=== PATIENT | male | born 1935 | race Caucasian/White ===

== ENCOUNTER → 2017-06-17 | Outpatient (CLI) | payer MEDICARE, OTHER ==
[~2017-06-17] MED LIST: ACET250; ACET325 PO; ALLO100; ALLO100 PO; AMIT25 PO; AMLO10 PO; AMOCLA875 PO; ASPI325; ASPI325EC; ASPI81EC PO; Aspirin EC81 MG PO; Azor 5-20 MG T1 EACH; BENAML20/5; BENAML20/5 PO; BUME1; BUME1 PO; BUME2 PO; BYETTA; CARV6.25 PO; CYCL10 PO; Cleocin HCl300 MG PO; Culturelle1 CAP PO; DICY20 PO; DOCU100 PO; DOXA4 PO; DOXY100 PO; ENOX120I SQ; ESOM20 PO; EXENATIDE; EZET10-20 PO; FOLI1 PO; GABA300 PO; GLIM2; GLIP5ER PO; HYDACE5 PO; HYDGUAL120 PO; IBUP800 PO; INJECTION; INS70/30I SC; INVOKANA; INVOKANA300 MG PO; LEVEMIR FL100 UNIT/1 SC; LIRA0.6P; LISI5 PO; LORA1 PO; LOSA25 PO; LOSA50; METF500; METF500 PO; METO25ER PO; Novolog Fl100 UNIT/1 SC; OMEP20ER PO; OXYACE5T PO; Omeprazole20 M1 PO; PANT40; PANT40 PO; POTCHL20ER PO; PRAVASTATIN SOD10 MG PO; PRED20; PRED20 PO; ROXICODONE5 MG PO; RXOXYACE PO; SYNTHROID25 MCG PO; TOUJEO SOL300 UNIT/1 SC; TRAM50 PO; VANCOCIN PO; VICTOZA; VICTOZA 3-0.6 MG/0.1 SC; WARF5 PO; XARELTO20 MG PO; Zyloprim100 MG PO; byetta
== END | disposition home or self-care (01) ==
LOC: OLS 14:38
PROVIDERS: Dermatology
DX: L98.9 Disorder of the skin and subcutaneous tissue, unspecified (principal)
CPT/HCPCS: 81050; 84120

== ENCOUNTER 2017-08-11 11:41 | Day surgery (SDC) | payer MEDICARE, OTHER ==
[~2017-08-11] VITALS: Ht 180.3 cm; Wt 157.1 kg
[~2017-08-11 11:41] MED LIST changes: -ACET325 PO; -AMIT25 PO; -CARV6.25 PO; -Culturelle1 CAP PO; -FOLI1 PO; -GABA300 PO; -LEVEMIR FL100 UNIT/1 SC; -Novolog Fl100 UNIT/1 SC; -PANT40 PO; -PRED20 PO; -ROXICODONE5 MG PO; -VANCOCIN PO
== END 2017-08-11 15:45 | disposition home or self-care (01) ==
LOC: ORSCSDS 11:41
PROVIDERS: Internal Medicine Gastroenterology
PROC: 0DBL8ZX Excision of Transverse Colon, Via Natural or Artificial Opening Endoscopic, Diagnostic (ICD-10-PCS; principal; 2017-08-11 13:00)
PROC: 0DBK8ZX Excision of Ascending Colon, Via Natural or Artificial Opening Endoscopic, Diagnostic (ICD-10-PCS; principal; 2017-08-11 13:00)
PROC: 0DBH8ZX Excision of Cecum, Via Natural or Artificial Opening Endoscopic, Diagnostic (ICD-10-PCS; principal; 2017-08-11 13:00)
PROC: 0DBM8ZX Excision of Descending Colon, Via Natural or Artificial Opening Endoscopic, Diagnostic (ICD-10-PCS; principal; 2017-08-11 13:00)
PROC: 0D758ZZ Dilation of Esophagus, Via Natural or Artificial Opening Endoscopic (ICD-10-PCS; principal; 2017-08-11 13:00)
DX: R13.10 Dysphagia, unspecified (principal); K22.2 Esophageal obstruction; K25.4 Chronic or unspecified gastric ulcer with hemorrhage; K92.1 Melena; D12.2 Benign neoplasm of ascending colon; D12.0 Benign neoplasm of cecum; D12.3 Benign neoplasm of transverse colon; D12.4 Benign neoplasm of descending colon; K57.30 Diverticulosis of large intestine without perforation or abscess without bleeding; K64.8 Other hemorrhoids; I10 Essential (primary) hypertension; I48.91 Unspecified atrial fibrillation; I48.92 Unspecified atrial flutter; Z79.01 Long term (current) use of anticoagulants; Z95.0 Presence of cardiac pacemaker; E03.9 Hypothyroidism, unspecified; E11.42 Type 2 diabetes mellitus with diabetic polyneuropathy; Z79.4 Long term (current) use of insulin; N18.3 Chronic kidney disease, stage 3 (moderate); G47.33 Obstructive sleep apnea (adult) (pediatric); Z79.82 Long term (current) use of aspirin; Z79.899 Other long term (current) drug therapy; E66.01 Morbid (severe) obesity due to excess calories; Z68.42 Body mass index [BMI] 45.0-49.9, adult
CPT/HCPCS: 82947; 88305; C1726

== ENCOUNTER 2017-10-07 15:17 | Inpatient (IN) | payer MEDICARE, OTHER ==
[~2017-10-07] VITALS: Ht 180.3 cm; Wt 161.6 kg
[2017-10-07 16:02] LABS: BASOPHILS ABSOLUTE AUTO 0.06 K/mm3 (0.00-0.23); BASOPHILS PERCENT AUTO 1 % (0-2); EOSINOPHILS ABSOLUTE AUTO 0.11 K/mm3 (0.00-0.68); EOSINOPHILS PERCENT AUTO 1 % (0-6); Hematocrit 29.6 % (37.0-53.0); Hemoglobin 9.3 g/dL (13.5-17.5); IMMATURE GRAN ABSOLUTE AUTO 0.09 K/mm3 (0.00-0.10); IMMATURE GRAN PERCENT AUTO 1 % (0-1); LYMPHOCYTES ABSOLUTE AUTO 1.67 K/mm3 (0.84-5.20); LYMPHOCYTES PERCENT AUTO 15 % (21-46); MONOCYTES ABSOLUTE AUTO 0.71 K/mm3 (0.16-1.47); MONOCYTES PERCENT AUTO 6 % (4-13); Mean Corpuscular HGB 28.7 pg (26.0-34.0); Mean Corpuscular HGB Conc 31.4 g/dL (31.5-36.5); Mean Corpuscular Volume 91 fL (80-100); Mean Platelet Volume 10.1 fL (9.1-12.4); NEUTROPHILS ABSOLUTE AUTO 8.43 K/mm3 (1.96-9.15); NEUTROPHILS PERCENT AUTO 76 % (41-73); Platelet Count 223 K/mm3 (150-400); RDW Coefficient Variation 16.2 % (11.7-14.2); RDW Standard Deviation 53.1 fL (35.1-46.3); Red Blood Cell Count 3.24 M/mm3 (4.30-5.90); White Blood Cell Count 11.07 K/mm3 (4.00-11.30)
[2017-10-07 16:16] LABS: Alanine Aminotransfer (ALT/SGP 21 U/L (12-78); Albumin, Blood 2.9 g/dL (3.4-5.0); Albumin/Globulin Ratio 0.8 (0.8-1.8); Alk Phos 93 U/L (50-136); Anion Gap 10 mmol/L (6-16); Aspartate Aminotrans (AST/SGOT 13 U/L (12-37); Bilirubin, Total 0.2 mg/dL (0.1-1.0); Blood Urea Nitrogen 84 mg/dL (8-24); CO2, Blood 24 mmol/L (21-32); Calcium, Blood 8.8 mg/dL (8.5-10.1); Chloride, Blood 109 mmol/L (98-108); Creatinine, Blood 1.91 mg/dL (0.60-1.20); Globulin, Blood 3.6 g/dL (2.2-4.0); Glomerular Filtration Rate 36 (60-); Glucose, Blood 215 mg/dL (70-99); Potassium, Blood 4.6 mmol/L (3.5-5.5); Sodium, Blood 143 mmol/L (136-145); Total Protein, Blood 6.5 g/dL (6.4-8.2); Troponin I <0.015 ng/mL (0.000-0.040)
[2017-10-07 16:56] LABS: Source, Urine Clean Catch
[2017-10-07 17:08] LABS: Bilirubin, Urine Neg (Neg); Blood, Urine Neg (Neg); Glucose Qualitative, Urine Neg (Neg); Ketones, Urine Neg (Neg); Leukocyte Esterase, Urine 3+ (Neg); Nitrite, Urine Neg (Neg); Protein, Urine Neg (Neg); Urobilinogen, Urine NORM (Normal)
[2017-10-07 17:13] LABS: Appearance, Urine Clear (Clear); Color, Urine Pale Yellow (P-Yellow)
[2017-10-07 17:15] LABS: Bacteria Few /hpf; Squamous Epithelial Cells Few /hpf (Few)
[2017-10-07 20:10] LABS: International Normalized Ratio 1.09; Prothrombin Time Results 11.4 Sec (9.7-11.5)
[2017-10-07 20:45] LABS: Hematocrit 24.3 % (37.0-53.0); Hemoglobin 7.7 g/dL (13.5-17.5)
[2017-10-07] MEDS ORDERED: LEVEMIR FL100 UNIT/1 SC (21:43)
[2017-10-08 00:15] LABS: Troponin I 0.025 ng/mL (0.000-0.040)
[2017-10-08 00:17] LABS: Hematocrit 23.9 % (37.0-53.0); Hemoglobin 7.7 g/dL (13.5-17.5)
[2017-10-08 04:16] LABS: BASOPHILS ABSOLUTE AUTO 0.04 K/mm3 (0.00-0.23); BASOPHILS PERCENT AUTO 0 % (0-2); EOSINOPHILS ABSOLUTE AUTO 0.19 K/mm3 (0.00-0.68); EOSINOPHILS PERCENT AUTO 2 % (0-6); Hematocrit 23.7 % (37.0-53.0); Hemoglobin 7.4 g/dL (13.5-17.5); IMMATURE GRAN ABSOLUTE AUTO 0.06 K/mm3 (0.00-0.10); IMMATURE GRAN PERCENT AUTO 1 % (0-1); LYMPHOCYTES PERCENT AUTO 16 % (21-46); MONOCYTES ABSOLUTE AUTO 0.66 K/mm3 (0.16-1.47); MONOCYTES PERCENT AUTO 6 % (4-13); Mean Corpuscular HGB Conc 31.2 g/dL (31.5-36.5); Mean Corpuscular Volume 90 fL (80-100); Mean Platelet Volume 9.7 fL (9.1-12.4); NEUTROPHILS ABSOLUTE AUTO 8.22 K/mm3 (1.96-9.15); NEUTROPHILS PERCENT AUTO 76 % (41-73); Platelet Count 193 K/mm3 (150-400); RDW Coefficient Variation 16.6 % (11.7-14.2); RDW Standard Deviation 54.1 fL (35.1-46.3); Red Blood Cell Count 2.64 M/mm3 (4.30-5.90); White Blood Cell Count 10.87 K/mm3 (4.00-11.30)
[2017-10-08 04:40] LABS: Albumin, Blood 2.3 g/dL (3.4-5.0); Albumin/Globulin Ratio 0.8 (0.8-1.8); Bilirubin, Total 0.4 mg/dL (0.1-1.0); Bun/Creatinine Ratio 37.4 (12.0-20.0); Calcium, Blood 8.1 mg/dL (8.5-10.1); Creatinine, Blood 1.9 mg/dL (0.60-1.20); Total Protein, Blood 5.3 g/dL (6.4-8.2)
[2017-10-08 08:34] LABS: Troponin I 0.034 ng/mL (0.000-0.040)
[2017-10-08 18:08] LABS: Hematocrit 25.6 % (37.0-53.0); Hemoglobin 8.2 g/dL (13.5-17.5)
[2017-10-09 02:06] LABS: Calcium, Blood 8.2 mg/dL (8.5-10.1); Creatinine, Blood 1.68 mg/dL (0.60-1.20); Potassium, Blood 4.6 mmol/L (3.5-5.5)
[2017-10-09 02:13] LABS: BASOPHILS ABSOLUTE AUTO 0.04 K/mm3 (0.00-0.23); BASOPHILS PERCENT AUTO 0 % (0-2); EOSINOPHILS ABSOLUTE AUTO 0.21 K/mm3 (0.00-0.68); EOSINOPHILS PERCENT AUTO 2 % (0-6); Hematocrit 26.4 % (37.0-53.0); Hemoglobin 8.6 g/dL (13.5-17.5); IMMATURE GRAN ABSOLUTE AUTO 0.09 K/mm3 (0.00-0.10); IMMATURE GRAN PERCENT AUTO 1 % (0-1); LYMPHOCYTES ABSOLUTE AUTO 1.28 K/mm3 (0.84-5.20); LYMPHOCYTES PERCENT AUTO 12 % (21-46); MONOCYTES ABSOLUTE AUTO 0.67 K/mm3 (0.16-1.47); MONOCYTES PERCENT AUTO 6 % (4-13); Mean Corpuscular HGB 29.2 pg (26.0-34.0); Mean Corpuscular HGB Conc 32.6 g/dL (31.5-36.5); Mean Corpuscular Volume 90 fL (80-100); Mean Platelet Volume 10.1 fL (9.1-12.4); NEUTROPHILS ABSOLUTE AUTO 8.17 K/mm3 (1.96-9.15); NEUTROPHILS PERCENT AUTO 78 % (41-73); Platelet Count 172 K/mm3 (150-400); RDW Coefficient Variation 16.8 % (11.7-14.2); RDW Standard Deviation 53.6 fL (35.1-46.3); Red Blood Cell Count 2.95 M/mm3 (4.30-5.90); White Blood Cell Count 10.46 K/mm3 (4.00-11.30)
[2017-10-09 07:25] LABS: Hematocrit 27.9 % (37.0-53.0); Hemoglobin 8.9 g/dL (13.5-17.5)
[2017-10-10 07:42] LABS: BASOPHILS ABSOLUTE AUTO 0.02 K/mm3 (0.00-0.23); BASOPHILS PERCENT AUTO 0 % (0-2); EOSINOPHILS ABSOLUTE AUTO 0.12 K/mm3 (0.00-0.68); EOSINOPHILS PERCENT AUTO 1 % (0-6); Hematocrit 28.8 % (37.0-53.0); Hemoglobin 9.4 g/dL (13.5-17.5); IMMATURE GRAN ABSOLUTE AUTO 0.05 K/mm3 (0.00-0.10); IMMATURE GRAN PERCENT AUTO 0 % (0-1); LYMPHOCYTES ABSOLUTE AUTO 1.15 K/mm3 (0.84-5.20); LYMPHOCYTES PERCENT AUTO 9 % (21-46); MONOCYTES ABSOLUTE AUTO 1.06 K/mm3 (0.16-1.47); MONOCYTES PERCENT AUTO 9 % (4-13); Mean Corpuscular HGB 29.1 pg (26.0-34.0); Mean Corpuscular HGB Conc 32.6 g/dL (31.5-36.5); Mean Corpuscular Volume 89 fL (80-100); Mean Platelet Volume 9.3 fL (9.1-12.4); NEUTROPHILS ABSOLUTE AUTO 9.95 K/mm3 (1.96-9.15); NEUTROPHILS PERCENT AUTO 81 % (41-73); Platelet Count 187 K/mm3 (150-400); RDW Coefficient Variation 16.6 % (11.7-14.2); RDW Standard Deviation 53.8 fL (35.1-46.3); Red Blood Cell Count 3.23 M/mm3 (4.30-5.90); White Blood Cell Count 12.35 K/mm3 (4.00-11.30)
[2017-10-10 07:56] LABS: Bun/Creatinine Ratio 18.4 (12.0-20.0); Calcium, Blood 8.4 mg/dL (8.5-10.1); Creatinine, Blood 1.9 mg/dL (0.60-1.20); Potassium, Blood 4.3 mmol/L (3.5-5.5)
[2017-10-10 15:03] LABS: Source, Urine Clean Catch
[2017-10-10 15:13] LABS: Appearance, Urine Clear (Clear); Bilirubin, Urine Neg (Neg); Blood, Urine Neg (Neg); Color, Urine Yellow (P-Yellow); Glucose Qualitative, Urine Neg (Neg); Ketones, Urine Neg (Neg); Leukocyte Esterase, Urine Neg (Neg); Nitrite, Urine Neg (Neg); Protein, Urine Neg (Neg); Urobilinogen, Urine NORM (Normal)
[2017-10-11 04:53] LABS: BASOPHILS ABSOLUTE AUTO 0.04 K/mm3 (0.00-0.23); BASOPHILS PERCENT AUTO 0 % (0-2); EOSINOPHILS ABSOLUTE AUTO 0.05 K/mm3 (0.00-0.68); EOSINOPHILS PERCENT AUTO 0 % (0-6); Hematocrit 27.3 % (37.0-53.0); Hemoglobin 8.9 g/dL (13.5-17.5); IMMATURE GRAN ABSOLUTE AUTO 0.12 K/mm3 (0.00-0.10); IMMATURE GRAN PERCENT AUTO 1 % (0-1); LYMPHOCYTES ABSOLUTE AUTO 1.23 K/mm3 (0.84-5.20); LYMPHOCYTES PERCENT AUTO 8 % (21-46); MONOCYTES PERCENT AUTO 8 % (4-13); Mean Corpuscular HGB 28.9 pg (26.0-34.0); Mean Corpuscular HGB Conc 32.6 g/dL (31.5-36.5); Mean Corpuscular Volume 89 fL (80-100); Mean Platelet Volume 9.9 fL (9.1-12.4); NEUTROPHILS ABSOLUTE AUTO 13.47 K/mm3 (1.96-9.15); NEUTROPHILS PERCENT AUTO 83 % (41-73); Platelet Count 193 K/mm3 (150-400); RDW Coefficient Variation 17.1 % (11.7-14.2); RDW Standard Deviation 54.9 fL (35.1-46.3); Red Blood Cell Count 3.08 M/mm3 (4.30-5.90); White Blood Cell Count 16.21 K/mm3 (4.00-11.30)
[2017-10-11 05:15] LABS: Bun/Creatinine Ratio 16.8 (12.0-20.0); Calcium, Blood 7.9 mg/dL (8.5-10.1); Creatinine, Blood 2.26 mg/dL (0.60-1.20)
[2017-10-13 05:28] LABS: BASOPHILS ABSOLUTE AUTO 0.03 K/mm3 (0.00-0.23); BASOPHILS PERCENT AUTO 0 % (0-2); EOSINOPHILS ABSOLUTE AUTO 0.19 K/mm3 (0.00-0.68); EOSINOPHILS PERCENT AUTO 2 % (0-6); Hematocrit 25.7 % (37.0-53.0); Hemoglobin 8.3 g/dL (13.5-17.5); IMMATURE GRAN ABSOLUTE AUTO 0.05 K/mm3 (0.00-0.10); IMMATURE GRAN PERCENT AUTO 0 % (0-1); LYMPHOCYTES ABSOLUTE AUTO 0.96 K/mm3 (0.84-5.20); LYMPHOCYTES PERCENT AUTO 7 % (21-46); MONOCYTES ABSOLUTE AUTO 0.81 K/mm3 (0.16-1.47); MONOCYTES PERCENT AUTO 6 % (4-13); Mean Corpuscular HGB 28.7 pg (26.0-34.0); Mean Corpuscular HGB Conc 32.3 g/dL (31.5-36.5); Mean Corpuscular Volume 89 fL (80-100); Mean Platelet Volume 10.9 fL (9.1-12.4); NEUTROPHILS ABSOLUTE AUTO 10.86 K/mm3 (1.96-9.15); NEUTROPHILS PERCENT AUTO 84 % (41-73); Platelet Count 235 K/mm3 (150-400); RDW Coefficient Variation 16.6 % (11.7-14.2); RDW Standard Deviation 54.2 fL (35.1-46.3); Red Blood Cell Count 2.89 M/mm3 (4.30-5.90)
[2017-10-13 05:50] LABS: Albumin, Blood 2.2 g/dL (3.4-5.0); Anion Gap 12 mmol/L (6-16); Blood Urea Nitrogen 73 mg/dL (8-24); CO2, Blood 23 mmol/L (21-32); Chloride, Blood 103 mmol/L (98-108); Creatinine, Blood 3.18 mg/dL (0.60-1.20); Glomerular Filtration Rate 20 (60-); Glucose, Blood 175 mg/dL (70-99); Phosphorus, Blood 4.3 mg/dL (2.5-4.9); Potassium, Blood 3.6 mmol/L (3.5-5.5); Sodium, Blood 138 mmol/L (136-145)
[2017-10-15 04:46] LABS: BASOPHILS ABSOLUTE AUTO 0.03 K/mm3 (0.00-0.23); BASOPHILS PERCENT AUTO 0 % (0-2); EOSINOPHILS ABSOLUTE AUTO 0.34 K/mm3 (0.00-0.68); EOSINOPHILS PERCENT AUTO 4 % (0-6); Hematocrit 26.4 % (37.0-53.0); Hemoglobin 8.4 g/dL (13.5-17.5); IMMATURE GRAN ABSOLUTE AUTO 0.04 K/mm3 (0.00-0.10); IMMATURE GRAN PERCENT AUTO 0 % (0-1); LYMPHOCYTES ABSOLUTE AUTO 1.09 K/mm3 (0.84-5.20); LYMPHOCYTES PERCENT AUTO 11 % (21-46); MONOCYTES PERCENT AUTO 9 % (4-13); Mean Corpuscular HGB Conc 31.8 g/dL (31.5-36.5); Mean Corpuscular Volume 91 fL (80-100); NEUTROPHILS ABSOLUTE AUTO 7.29 K/mm3 (1.96-9.15); NEUTROPHILS PERCENT AUTO 75 % (41-73); Platelet Count 243 K/mm3 (150-400); RDW Coefficient Variation 16.1 % (11.7-14.2); RDW Standard Deviation 53.5 fL (35.1-46.3); White Blood Cell Count 9.69 K/mm3 (4.00-11.30)
[2017-10-15 05:00] LABS: Anion Gap 8 mmol/L (6-16); Blood Urea Nitrogen 60 mg/dL (8-24); Bun/Creatinine Ratio 25.1 (12.0-20.0); CO2, Blood 24 mmol/L (21-32); Calcium, Blood 8.2 mg/dL (8.5-10.1); Chloride, Blood 107 mmol/L (98-108); Creatinine, Blood 2.39 mg/dL (0.60-1.20); Glomerular Filtration Rate 28 (60-); Glucose, Blood 217 mg/dL (70-99); Phosphorus, Blood 3.6 mg/dL (2.5-4.9); Potassium, Blood 4.4 mmol/L (3.5-5.5); Sodium, Blood 139 mmol/L (136-145)
[2017-10-16 04:53] LABS: BASOPHILS ABSOLUTE AUTO 0.04 K/mm3 (0.00-0.23); BASOPHILS PERCENT AUTO 0 % (0-2); EOSINOPHILS ABSOLUTE AUTO 0.23 K/mm3 (0.00-0.68); EOSINOPHILS PERCENT AUTO 2 % (0-6); Hematocrit 23.9 % (37.0-53.0); Hemoglobin 7.5 g/dL (13.5-17.5); IMMATURE GRAN ABSOLUTE AUTO 0.08 K/mm3 (0.00-0.10); IMMATURE GRAN PERCENT AUTO 1 % (0-1); LYMPHOCYTES ABSOLUTE AUTO 1.17 K/mm3 (0.84-5.20); LYMPHOCYTES PERCENT AUTO 11 % (21-46); MONOCYTES ABSOLUTE AUTO 0.98 K/mm3 (0.16-1.47); MONOCYTES PERCENT AUTO 9 % (4-13); Mean Corpuscular HGB 28.1 pg (26.0-34.0); Mean Corpuscular HGB Conc 31.4 g/dL (31.5-36.5); Mean Corpuscular Volume 90 fL (80-100); Mean Platelet Volume 10.4 fL (9.1-12.4); NEUTROPHILS PERCENT AUTO 77 % (41-73); Platelet Count 259 K/mm3 (150-400); RDW Coefficient Variation 16.3 % (11.7-14.2); RDW Standard Deviation 53.1 fL (35.1-46.3); Red Blood Cell Count 2.67 M/mm3 (4.30-5.90)
[2017-10-16 05:14] LABS: Albumin, Blood 1.8 g/dL (3.4-5.0); Anion Gap 9 mmol/L (6-16); Blood Urea Nitrogen 52 mg/dL (8-24); Bun/Creatinine Ratio 23.4 (12.0-20.0); CO2, Blood 22 mmol/L (21-32); Calcium, Blood 8.1 mg/dL (8.5-10.1); Chloride, Blood 108 mmol/L (98-108); Creatinine, Blood 2.22 mg/dL (0.60-1.20); Glomerular Filtration Rate 30 (60-); Glucose, Blood 152 mg/dL (70-99); Phosphorus, Blood 3.4 mg/dL (2.5-4.9); Potassium, Blood 4.2 mmol/L (3.5-5.5); Sodium, Blood 139 mmol/L (136-145)
[2017-10-16 07:59] LABS: Hematocrit 22.5 % (37.0-53.0); Hemoglobin 7.2 g/dL (13.5-17.5)
[2017-10-17 05:24] LABS: BASOPHILS ABSOLUTE AUTO 0.04 K/mm3 (0.00-0.23); BASOPHILS PERCENT AUTO 0 % (0-2); EOSINOPHILS ABSOLUTE AUTO 0.19 K/mm3 (0.00-0.68); EOSINOPHILS PERCENT AUTO 1 % (0-6); Hematocrit 23.8 % (37.0-53.0); Hemoglobin 7.4 g/dL (13.5-17.5); IMMATURE GRAN ABSOLUTE AUTO 0.13 K/mm3 (0.00-0.10); IMMATURE GRAN PERCENT AUTO 1 % (0-1); LYMPHOCYTES ABSOLUTE AUTO 1.33 K/mm3 (0.84-5.20); LYMPHOCYTES PERCENT AUTO 9 % (21-46); MONOCYTES ABSOLUTE AUTO 1.08 K/mm3 (0.16-1.47); MONOCYTES PERCENT AUTO 8 % (4-13); Mean Corpuscular HGB 27.6 pg (26.0-34.0); Mean Corpuscular HGB Conc 31.1 g/dL (31.5-36.5); Mean Corpuscular Volume 89 fL (80-100); Mean Platelet Volume 10.3 fL (9.1-12.4); NEUTROPHILS ABSOLUTE AUTO 11.64 K/mm3 (1.96-9.15); NEUTROPHILS PERCENT AUTO 81 % (41-73); Platelet Count 289 K/mm3 (150-400); RDW Coefficient Variation 16.7 % (11.7-14.2); RDW Standard Deviation 54.3 fL (35.1-46.3); Red Blood Cell Count 2.68 M/mm3 (4.30-5.90); White Blood Cell Count 14.41 K/mm3 (4.00-11.30)
[2017-10-17 05:40] LABS: Albumin, Blood 1.8 g/dL (3.4-5.0); Anion Gap 8 mmol/L (6-16); Blood Urea Nitrogen 52 mg/dL (8-24); Bun/Creatinine Ratio 21.8 (12.0-20.0); CO2, Blood 21 mmol/L (21-32); Calcium, Blood 8.2 mg/dL (8.5-10.1); Chloride, Blood 109 mmol/L (98-108); Creatinine, Blood 2.39 mg/dL (0.60-1.20); Glomerular Filtration Rate 28 (60-); Glucose, Blood 150 mg/dL (70-99); Phosphorus, Blood 3.2 mg/dL (2.5-4.9); Potassium, Blood 4.5 mmol/L (3.5-5.5); Sodium, Blood 138 mmol/L (136-145)
[2017-10-17 15:02] LABS: Source, Urine Clean Catch
[2017-10-17 15:15] LABS: Appearance, Urine Clear (Clear); Bilirubin, Urine Neg (Neg); Blood, Urine Neg (Neg); Color, Urine Yellow (P-Yellow); Glucose Qualitative, Urine Neg (Neg); Ketones, Urine Neg (Neg); Leukocyte Esterase, Urine 1+ (Neg); Nitrite, Urine Neg (Neg); Protein, Urine Neg (Neg); Specific Gravity, Urine 1.015 (1.003-1.022); Urobilinogen, Urine NORM (Normal)
[2017-10-17 15:32] LABS: Bacteria Rare /hpf; Squamous Epithelial Cells Rare /hpf (Few)
[2017-10-18 05:11] LABS: BASOPHILS ABSOLUTE AUTO 0.04 K/mm3 (0.00-0.23); BASOPHILS PERCENT AUTO 0 % (0-2); EOSINOPHILS ABSOLUTE AUTO 0.22 K/mm3 (0.00-0.68); EOSINOPHILS PERCENT AUTO 2 % (0-6); Hematocrit 23.7 % (37.0-53.0); Hemoglobin 7.6 g/dL (13.5-17.5); IMMATURE GRAN ABSOLUTE AUTO 0.17 K/mm3 (0.00-0.10); IMMATURE GRAN PERCENT AUTO 1 % (0-1); LYMPHOCYTES ABSOLUTE AUTO 1.27 K/mm3 (0.84-5.20); LYMPHOCYTES PERCENT AUTO 10 % (21-46); MONOCYTES ABSOLUTE AUTO 0.85 K/mm3 (0.16-1.47); MONOCYTES PERCENT AUTO 6 % (4-13); Mean Corpuscular HGB Conc 32.1 g/dL (31.5-36.5); Mean Corpuscular Volume 88 fL (80-100); Mean Platelet Volume 10.8 fL (9.1-12.4); NEUTROPHILS ABSOLUTE AUTO 10.76 K/mm3 (1.96-9.15); NEUTROPHILS PERCENT AUTO 81 % (41-73); Platelet Count 258 K/mm3 (150-400); RDW Coefficient Variation 16.5 % (11.7-14.2); RDW Standard Deviation 52.7 fL (35.1-46.3); Red Blood Cell Count 2.71 M/mm3 (4.30-5.90); White Blood Cell Count 13.31 K/mm3 (4.00-11.30)
[2017-10-18 05:29] LABS: Bun/Creatinine Ratio 21.6 (12.0-20.0); Calcium, Blood 8.3 mg/dL (8.5-10.1); Creatinine, Blood 2.27 mg/dL (0.60-1.20); Potassium, Blood 4.5 mmol/L (3.5-5.5)
[2017-10-18 11:27] LABS: PCO2 Arterial 33.7 mmHg (35-45); PO2 Arterial 69.6 mmHg (80-100); pH Blood Arterial 7.45 (7.35-7.45)
[2017-10-19 04:53] LABS: BASOPHILS ABSOLUTE AUTO 0.05 K/mm3 (0.00-0.23); BASOPHILS PERCENT AUTO 0 % (0-2); EOSINOPHILS ABSOLUTE AUTO 0.05 K/mm3 (0.00-0.68); EOSINOPHILS PERCENT AUTO 0 % (0-6); Hematocrit 24.5 % (37.0-53.0); Hemoglobin 7.9 g/dL (13.5-17.5); IMMATURE GRAN ABSOLUTE AUTO 0.18 K/mm3 (0.00-0.10); IMMATURE GRAN PERCENT AUTO 1 % (0-1); LYMPHOCYTES ABSOLUTE AUTO 1.22 K/mm3 (0.84-5.20); LYMPHOCYTES PERCENT AUTO 9 % (21-46); MONOCYTES PERCENT AUTO 8 % (4-13); Mean Corpuscular HGB 27.8 pg (26.0-34.0); Mean Corpuscular HGB Conc 32.2 g/dL (31.5-36.5); Mean Corpuscular Volume 86 fL (80-100); NEUTROPHILS ABSOLUTE AUTO 10.78 K/mm3 (1.96-9.15); NEUTROPHILS PERCENT AUTO 81 % (41-73); Platelet Count 393 K/mm3 (150-400); RDW Coefficient Variation 16.8 % (11.7-14.2); RDW Standard Deviation 53.8 fL (35.1-46.3); Red Blood Cell Count 2.84 M/mm3 (4.30-5.90); White Blood Cell Count 13.38 K/mm3 (4.00-11.30)
[2017-10-19 05:24] LABS: Albumin, Blood 1.8 g/dL (3.4-5.0); Anion Gap 9 mmol/L (6-16); Blood Urea Nitrogen 45 mg/dL (8-24); Bun/Creatinine Ratio 20.7 (12.0-20.0); CO2, Blood 23 mmol/L (21-32); Calcium, Blood 8.5 mg/dL (8.5-10.1); Chloride, Blood 108 mmol/L (98-108); Creatinine, Blood 2.17 mg/dL (0.60-1.20); Glomerular Filtration Rate 31 (60-); Glucose, Blood 191 mg/dL (70-99); Phosphorus, Blood 3.2 mg/dL (2.5-4.9); Potassium, Blood 4.4 mmol/L (3.5-5.5); Sodium, Blood 140 mmol/L (136-145)
[2017-10-20 05:30] LABS: BASOPHILS ABSOLUTE AUTO 0.05 K/mm3 (0.00-0.23); BASOPHILS PERCENT AUTO 0 % (0-2); EOSINOPHILS ABSOLUTE AUTO 0.04 K/mm3 (0.00-0.68); EOSINOPHILS PERCENT AUTO 0 % (0-6); Hematocrit 24.5 % (37.0-53.0); Hemoglobin 7.8 g/dL (13.5-17.5); IMMATURE GRAN ABSOLUTE AUTO 0.16 K/mm3 (0.00-0.10); IMMATURE GRAN PERCENT AUTO 1 % (0-1); LYMPHOCYTES ABSOLUTE AUTO 1.27 K/mm3 (0.84-5.20); LYMPHOCYTES PERCENT AUTO 8 % (21-46); MONOCYTES ABSOLUTE AUTO 1.16 K/mm3 (0.16-1.47); MONOCYTES PERCENT AUTO 7 % (4-13); Mean Corpuscular HGB 27.6 pg (26.0-34.0); Mean Corpuscular HGB Conc 31.8 g/dL (31.5-36.5); Mean Corpuscular Volume 87 fL (80-100); NEUTROPHILS ABSOLUTE AUTO 13.18 K/mm3 (1.96-9.15); NEUTROPHILS PERCENT AUTO 83 % (41-73); Platelet Count 425 K/mm3 (150-400); RDW Coefficient Variation 17.1 % (11.7-14.2); RDW Standard Deviation 53.8 fL (35.1-46.3); Red Blood Cell Count 2.83 M/mm3 (4.30-5.90); White Blood Cell Count 15.86 K/mm3 (4.00-11.30)
[2017-10-20 05:54] LABS: Albumin, Blood 1.8 g/dL (3.4-5.0); Albumin/Globulin Ratio 0.4 (0.8-1.8); Bilirubin, Total 0.4 mg/dL (0.1-1.0); Bun/Creatinine Ratio 20.4 (12.0-20.0); Calcium, Blood 8.2 mg/dL (8.5-10.1); Creatinine, Blood 2.16 mg/dL (0.60-1.20); Globulin, Blood 4.6 g/dL (2.2-4.0); Potassium, Blood 4.3 mmol/L (3.5-5.5); Total Protein, Blood 6.4 g/dL (6.4-8.2)
[2017-10-21 05:44] LABS: BASOPHILS ABSOLUTE AUTO 0.04 K/mm3 (0.00-0.23); BASOPHILS PERCENT AUTO 0 % (0-2); EOSINOPHILS ABSOLUTE AUTO 0.23 K/mm3 (0.00-0.68); EOSINOPHILS PERCENT AUTO 2 % (0-6); Hematocrit 24.6 % (37.0-53.0); Hemoglobin 7.8 g/dL (13.5-17.5); IMMATURE GRAN ABSOLUTE AUTO 0.15 K/mm3 (0.00-0.10); IMMATURE GRAN PERCENT AUTO 1 % (0-1); LYMPHOCYTES ABSOLUTE AUTO 1.43 K/mm3 (0.84-5.20); LYMPHOCYTES PERCENT AUTO 10 % (21-46); MONOCYTES ABSOLUTE AUTO 0.96 K/mm3 (0.16-1.47); MONOCYTES PERCENT AUTO 6 % (4-13); Mean Corpuscular HGB 27.5 pg (26.0-34.0); Mean Corpuscular HGB Conc 31.7 g/dL (31.5-36.5); Mean Corpuscular Volume 87 fL (80-100); Mean Platelet Volume 9.9 fL (9.1-12.4); NEUTROPHILS ABSOLUTE AUTO 12.19 K/mm3 (1.96-9.15); NEUTROPHILS PERCENT AUTO 81 % (41-73); Platelet Count 431 K/mm3 (150-400); RDW Coefficient Variation 16.9 % (11.7-14.2); RDW Standard Deviation 53.3 fL (35.1-46.3); Red Blood Cell Count 2.84 M/mm3 (4.30-5.90)
[2017-10-21 06:08] LABS: Bun/Creatinine Ratio 23.2 (12.0-20.0); Calcium, Blood 8.3 mg/dL (8.5-10.1); Creatinine, Blood 2.37 mg/dL (0.60-1.20); Potassium, Blood 3.9 mmol/L (3.5-5.5)
[2017-10-22] MEDS ORDERED: GABA300 PO (14:16)
[2017-10-22] MEDS ORDERED: CARV6.25 PO (14:16)
[2017-10-22] MEDS ORDERED: Culturelle1 CAP PO (14:17)
[2017-10-22] MEDS ORDERED: ROXICODONE5 MG PO (14:17)
[2017-10-22] MEDS ORDERED: PANT40 PO (14:18)
[2017-10-22] MEDS ORDERED: VANCOCIN PO (14:29)
[2017-10-22] MEDS ORDERED: Novolog Fl100 UNIT/1 SC (18:58)
== END 2017-10-22 18:39 | DRG 871 ==
LOC: ER 15:17 → ICUW 15:18 → MEDS 10-08 20:31 → ICUW 10-08 20:32 → MEDS 10-10 14:10 → ENPENDDIS 10-22 11:00 → MEDS 10-22 18:39
PROVIDERS: Emergency Medicine; Internal Medicine; Internal Medicine Gastroenterology; Physician Assistant
PROC: 0DD68ZX Extraction of Stomach, Via Natural or Artificial Opening Endoscopic, Diagnostic (ICD-10-PCS; principal; 2017-10-09 13:00)
DX: A41.59 Other Gram-negative sepsis (principal); K25.4 Chronic or unspecified gastric ulcer with hemorrhage; I82.502 Chronic embolism and thrombosis of unspecified deep veins of left lower extremity; N39.0 Urinary tract infection, site not specified; N17.9 Acute kidney failure, unspecified; Z68.43 Body mass index [BMI] 50.0-59.9, adult; D62 Acute posthemorrhagic anemia; F05 Delirium due to known physiological condition; E87.2 Acidosis; A04.72 Enterocolitis due to Clostridium difficile, not specified as recurrent; K92.1 Melena; J98.11 Atelectasis; R26.2 Difficulty in walking, not elsewhere classified; E78.5 Hyperlipidemia, unspecified; Z95.0 Presence of cardiac pacemaker; M06.4 Inflammatory polyarthropathy; M10.9 Gout, unspecified; N18.3 Chronic kidney disease, stage 3 (moderate); G47.33 Obstructive sleep apnea (adult) (pediatric); I12.9 Hypertensive chronic kidney disease with stage 1 through stage 4 chronic kidney disease, or unspecified chronic kidney disease; Z74.01 Bed confinement status; K57.90 Diverticulosis of intestine, part unspecified, without perforation or abscess without bleeding; Z79.82 Long term (current) use of aspirin; Z79.01 Long term (current) use of anticoagulants; E66.01 Morbid (severe) obesity due to excess calories; M19.90 Unspecified osteoarthritis, unspecified site; Z22.322 Carrier or suspected carrier of Methicillin resistant Staphylococcus aureus; Z22.321 Carrier or suspected carrier of Methicillin susceptible Staphylococcus aureus; N28.9 Disorder of kidney and ureter, unspecified; E87.70 Fluid overload, unspecified; R06.2 Wheezing; E11.22 Type 2 diabetes mellitus with diabetic chronic kidney disease; R06.4 Hyperventilation; K44.9 Diaphragmatic hernia without obstruction or gangrene; B96.4 Proteus (mirabilis) (morganii) as the cause of diseases classified elsewhere; Z79.4 Long term (current) use of insulin; F32.9 Major depressive disorder, single episode, unspecified; I44.1 Atrioventricular block, second degree; Z98.49 Cataract extraction status, unspecified eye
CPT/HCPCS: 36415; 36430; 36600; 70450; 71045; 71046; 78582; 80048; 80053; 80069; 81001; 81003; 82272; 82550; 82803; 82947; 83605; 83735; 83880; 84145; 84484; 85014; 85018; 85025; 85610; 85730; 86850; 86900; 86901; 86923; 87040; 87077; 87086; 87186; 87493; 88305; 88342; 93005; 93010; 93280; 93306; 93970; 94660; 94762; 96361; 96374; 97110; 97162; 97166; 97530; 99285; A9540; A9558; C9113; G8978; G8979; G8987; G8988; J0696; J1815; J1940; J1956; J2250; J3010; J3370; J7030; J7050; J7120; P9016

== ENCOUNTER 2018-01-08 06:20 | Day surgery (SDC) | payer MEDICARE, OTHER ==
[~2018-01-08] VITALS: Ht 177.8 cm; Wt 157.4 kg
[~2018-01-08 06:20] MED LIST changes: +ACET325 PO; +AMIT25 PO; +CARV6.25 PO; +Culturelle1 CAP PO; +FOLI1 PO; +GABA300 PO; +LEVEMIR FL100 UNIT/1 SC; +Novolog Fl100 UNIT/1 SC; +PANT40 PO; +PRED20 PO; +ROXICODONE5 MG PO; +VANCOCIN PO
== END 2018-01-08 22:44 | disposition home or self-care (01) ==
LOC: ORSCMMR 06:20 → ORD 08:00 → ORSCMMR 22:44
PROVIDERS: Internal Medicine Gastroenterology
PROC: 0DB58ZX Excision of Esophagus, Via Natural or Artificial Opening Endoscopic, Diagnostic (ICD-10-PCS; principal; 2018-01-08 08:00)
DX: K25.9 Gastric ulcer, unspecified as acute or chronic, without hemorrhage or perforation (principal); G47.33 Obstructive sleep apnea (adult) (pediatric); E11.9 Type 2 diabetes mellitus without complications; K44.9 Diaphragmatic hernia without obstruction or gangrene; K21.9 Gastro-esophageal reflux disease without esophagitis; E21.3 Hyperparathyroidism, unspecified; N18.3 Chronic kidney disease, stage 3 (moderate); E03.9 Hypothyroidism, unspecified; E66.01 Morbid (severe) obesity due to excess calories; Z68.42 Body mass index [BMI] 45.0-49.9, adult; Z79.4 Long term (current) use of insulin; Z79.899 Other long term (current) drug therapy
CPT/HCPCS: 82947; 88305; 88342; J2250; J7030

== ENCOUNTER 2018-07-03 14:22 | Emergency (ER) | payer MEDICARE, OTHER ==
[~2018-07-03] VITALS: Ht 180.3 cm; Wt 161.0 kg
[2018-07-03 15:05] LABS: BASOPHILS ABSOLUTE AUTO 0.05 K/mm3 (0.00-0.23); BASOPHILS PERCENT AUTO 1 % (0-2); EOSINOPHILS ABSOLUTE AUTO 0.19 K/mm3 (0.00-0.68); EOSINOPHILS PERCENT AUTO 2 % (0-6); Hematocrit 34.6 % (37.0-53.0); Hemoglobin 10.6 g/dL (13.5-17.5); IMMATURE GRAN ABSOLUTE AUTO 0.08 K/mm3 (0.00-0.10); IMMATURE GRAN PERCENT AUTO 1 % (0-1); LYMPHOCYTES ABSOLUTE AUTO 1.26 K/mm3 (0.84-5.20); LYMPHOCYTES PERCENT AUTO 14 % (21-46); MONOCYTES ABSOLUTE AUTO 0.68 K/mm3 (0.16-1.47); MONOCYTES PERCENT AUTO 7 % (4-13); Mean Corpuscular HGB 28.6 pg (26.0-34.0); Mean Corpuscular HGB Conc 30.6 g/dL (31.5-36.5); Mean Corpuscular Volume 94 fL (80-100); Mean Platelet Volume 8.9 fL (9.1-12.4); NEUTROPHILS ABSOLUTE AUTO 7.04 K/mm3 (1.96-9.15); NEUTROPHILS PERCENT AUTO 76 % (41-73); Platelet Count 288 K/mm3 (150-400); RDW Coefficient Variation 16.2 % (11.7-14.2); RDW Standard Deviation 55.5 fL (35.1-46.3)
[2018-07-03 15:25] LABS: Albumin, Blood 2.8 g/dL (3.4-5.0); Albumin/Globulin Ratio 0.7 (0.8-1.8); Bilirubin, Total 0.4 mg/dL (0.1-1.0); Bun/Creatinine Ratio 15.7 (12.0-20.0); Calcium, Blood 8.6 mg/dL (8.5-10.1); Creatinine, Blood 1.97 mg/dL (0.60-1.20); Globulin, Blood 4.3 g/dL (2.2-4.0); Total Protein, Blood 7.1 g/dL (6.4-8.2); Troponin I 0.023 ng/mL (0.000-0.040)
[2018-07-03] MEDS ORDERED: LIRA0.6P (15:28)
[2018-07-03] MEDS ORDERED: TOUJEO SOL300 UNIT/1 SQ (15:29)
== END 2018-07-03 16:35 | disposition home or self-care (01) ==
LOC: ER 14:22
PROVIDERS: Emergency Medicine
DX: R55 Syncope and collapse (principal); E11.9 Type 2 diabetes mellitus without complications; I10 Essential (primary) hypertension; E78.5 Hyperlipidemia, unspecified; Z79.899 Other long term (current) drug therapy; Z79.4 Long term (current) use of insulin
CPT/HCPCS: 36415; 71046; 80053; 84484; 85025; 93005; 93010; 99284-25

== ENCOUNTER 2018-07-06 02:54 | Emergency (ER) | payer MEDICARE, OTHER ==
[~2018-07-06] VITALS: Ht 180.3 cm; Wt 161.0 kg
[~2018-07-06 02:54] MED LIST changes: +TOUJEO SOL300 UNIT/1 SQ
[2018-07-06] MEDS ORDERED: Prednisone20 MG PO (04:15)
[2018-07-06] MEDS ORDERED: Norco 5-325 Ta1 EACH PO (04:15)
== END 2018-07-06 04:28 | disposition home or self-care (01) ==
LOC: ER 02:54
DX: M54.32 Sciatica, left side (principal); I10 Essential (primary) hypertension; E11.9 Type 2 diabetes mellitus without complications; E78.5 Hyperlipidemia, unspecified; Z95.0 Presence of cardiac pacemaker
CPT/HCPCS: 99283

== ENCOUNTER → 2018-08-25 | Outpatient (CLI) | payer MEDICARE, OTHER ==
[~2018-08-25] MED LIST changes: +Norco 5-325 Ta1 EACH PO; +Prednisone20 MG PO
== END | disposition home or self-care (01) ==
LOC: LAB 18:54 → LAB SHORT 18:54
DX: R35.0 Frequency of micturition (principal)
CPT/HCPCS: 87077; 87086; 87186

== ENCOUNTER 2018-12-09 15:46 | Inpatient (IN) | payer MEDICARE, OTHER ==
[~2018-12-09] VITALS: Ht 180.3 cm; Wt 152.7 kg
[~2018-12-09 15:46] MED LIST changes: +Bumetanide2 MG PO; +LIRA0.6P SC; -TOUJEO SOL300 UNIT/1 SQ; +XARELTO1 EACH PO
[2018-12-09] MEDS ORDERED: Hydrocodone-Ap1 EA23 PO (16:15)
[2018-12-09] MEDS ORDERED: Sulfamethoxazo1 EAC1 PO (16:15)
[2018-12-09] MEDS ORDERED: Bumetanide2 MG (16:16)
[2018-12-09] MEDS ORDERED: LINZESS145 MCG PO (16:16)
[2018-12-09 16:58] LABS: BASOPHILS ABSOLUTE AUTO 0.04 K/mm3 (0.00-0.23); BASOPHILS PERCENT AUTO 0 % (0-2); EOSINOPHILS ABSOLUTE AUTO 0.09 K/mm3 (0.00-0.68); EOSINOPHILS PERCENT AUTO 1 % (0-6); Hematocrit 42.2 % (37.0-53.0); Hemoglobin 12.9 g/dL (13.5-17.5); IMMATURE GRAN ABSOLUTE AUTO 0.09 K/mm3 (0.00-0.10); IMMATURE GRAN PERCENT AUTO 1 % (0-1); LYMPHOCYTES ABSOLUTE AUTO 1.02 K/mm3 (0.84-5.20); LYMPHOCYTES PERCENT AUTO 7 % (21-46); MONOCYTES ABSOLUTE AUTO 1.31 K/mm3 (0.16-1.47); MONOCYTES PERCENT AUTO 9 % (4-13); Mean Corpuscular HGB 28.4 pg (26.0-34.0); Mean Corpuscular HGB Conc 30.6 g/dL (31.5-36.5); Mean Corpuscular Volume 93 fL (80-100); Mean Platelet Volume 9.5 fL (9.1-12.4); NEUTROPHILS ABSOLUTE AUTO 11.33 K/mm3 (1.96-9.15); NEUTROPHILS PERCENT AUTO 82 % (41-73); Platelet Count 214 K/mm3 (150-400); RDW Coefficient Variation 16.6 % (11.7-14.2); RDW Standard Deviation 56.7 fL (35.1-46.3); Red Blood Cell Count 4.55 M/mm3 (4.30-5.90); White Blood Cell Count 13.88 K/mm3 (4.00-11.30)
[2018-12-09 17:18] LABS: C-REACTIVE PROTEIN, EXT RANGE 11.1 mg/dL (0.000-0.300)
[2018-12-09 17:20] LABS: Albumin/Globulin Ratio 0.7 (0.8-1.8); Bilirubin, Total 0.7 mg/dL (0.1-1.0); Bun/Creatinine Ratio 15.5 (12.0-20.0); Calcium, Blood 9.1 mg/dL (8.5-10.1); Creatinine, Blood 1.81 mg/dL (0.60-1.20); Globulin, Blood 4.2 g/dL (2.2-4.0); Potassium, Blood 3.6 mmol/L (3.5-5.5); Total Protein, Blood 7.2 g/dL (6.4-8.2)
[2018-12-09 20:29] LABS: Body Fluid Crystals NEG (NEGATIVE)
[2018-12-09 20:44] LABS: BODY FLUID RBC 0.038 (0-0); RBC Count, Synovial Fluid 38000 /mm3 (0-0)
[2018-12-09 20:57] LABS: WBC Count, Synovial Fluid 24525 /mm3 (0-180)
[2018-12-09 21:25] LABS: Lymphs, Synovial Fluid 1 % (0-15); Monocytes/Macrophages, Synovia 2 % (0-65); Neutrophils, Synovial Fluid 97 % (0-24)
[2018-12-09 21:27] LABS: Appearance, Synovial Fluid Cloudy (Clear); Color, Synovial Fluid Red (None-P Yel)
[2018-12-10 04:43] LABS: BASOPHILS ABSOLUTE AUTO 0.04 K/mm3 (0.00-0.23); BASOPHILS PERCENT AUTO 0 % (0-2); EOSINOPHILS ABSOLUTE AUTO 0.05 K/mm3 (0.00-0.68); EOSINOPHILS PERCENT AUTO 0 % (0-6); Hematocrit 36.8 % (37.0-53.0); Hemoglobin 11.4 g/dL (13.5-17.5); IMMATURE GRAN ABSOLUTE AUTO 0.09 K/mm3 (0.00-0.10); IMMATURE GRAN PERCENT AUTO 1 % (0-1); LYMPHOCYTES ABSOLUTE AUTO 1.17 K/mm3 (0.84-5.20); LYMPHOCYTES PERCENT AUTO 8 % (21-46); MONOCYTES ABSOLUTE AUTO 1.38 K/mm3 (0.16-1.47); MONOCYTES PERCENT AUTO 10 % (4-13); Mean Corpuscular HGB 28.5 pg (26.0-34.0); Mean Corpuscular Volume 92 fL (80-100); Mean Platelet Volume 9.8 fL (9.1-12.4); NEUTROPHILS ABSOLUTE AUTO 11.15 K/mm3 (1.96-9.15); NEUTROPHILS PERCENT AUTO 80 % (41-73); Platelet Count 202 K/mm3 (150-400); RDW Coefficient Variation 16.5 % (11.7-14.2); RDW Standard Deviation 55.5 fL (35.1-46.3); White Blood Cell Count 13.88 K/mm3 (4.00-11.30)
[2018-12-10 05:00] LABS: International Normalized Ratio 1.03; Prothrombin Time Results 10.9 Sec (9.7-11.5)
[2018-12-10 05:05] LABS: Albumin, Blood 2.4 g/dL (3.4-5.0); Albumin/Globulin Ratio 0.6 (0.8-1.8); Bilirubin, Total 0.7 mg/dL (0.1-1.0); Creatinine, Blood 1.86 mg/dL (0.60-1.20); Globulin, Blood 3.7 g/dL (2.2-4.0); Magnesium, Blood 1.8 mg/dL (1.6-2.4); Potassium, Blood 3.9 mmol/L (3.5-5.5); Total Protein, Blood 6.1 g/dL (6.4-8.2)
--- NOTE | 2018-12-10 07:36 | NUR ---
PATIENT COMPLAINED OF PAIN 9/ ND RECIEVED PAIN MEDS PER ORDER. PT'S LEFT KNEE IS RED AND WARM AND TENDER TO HIM WITH MOVEMENT. PATIENT NPO BUT FOR SIPS AND AM MEDS.
[2018-12-10] MEDS ORDERED: PRED5 PO (11:33)
[2018-12-10] MEDS ORDERED: PRED1 PO (11:33)
[2018-12-10] MEDS ORDERED: Bumetanide2 MG PO (11:34)
[2018-12-10] MEDS ORDERED: Bactrim 400-801 EACH PO (11:35)
[2018-12-10] MEDS ORDERED: POTA10T PO (11:40)
[2018-12-10] MEDS ORDERED: Synthroid88 MCG PO (11:46)
[2018-12-10] MEDS ORDERED: NOVOLOG FL100 UNIT/1 SC (11:46)
[2018-12-10 11:48] LABS: Vancomycin, Random 12.7 ug/mL
--- NOTE | 2018-12-10 17:00 | NUR ---
SHIFT SUMMARY: PT A/O X 4 THIS SHIFT WITH NO C/O PAIN. DR GRIFFITH CANCELLED THIS MORNING'S SURGERY AND DCD THE NPO ORDER SO PT WAS ASSISTED WITH ALL 3 MEALS ALTHOUGH HE DID HAVE LITTLE APPETITE. HE DOES DRINK FLUIDS WELL. LEFT KNEE REMAINS WARM AND SWOLLEN AND TENDER TO THE TOUCH. IV ABO IFUSED VIA PERIPHERAL LINE WITH NO ISSUES. PT NAPPED ON AND OFF. PT IS VERY PLEASANT AND COOPERATIVE WITH CARE. HOME MED REC WAS COMPLETED WITH CHARGE NURSE AFTER BROUGHT IN HOME MED LIST AND DR DEXTER WAS NOTIFIED THAT PT HAD BEEN TAKING PO ABO AT HOME. HAS BEEN AT BEDSIDE ALL DAY AND IS VERY INVOLVED IN PTS CARE. PT IS ABLE TO MAKE HIS NEEDS KNOWN AND USES CALL LIGHT FOR HELP WHEN NEEDED.
--- NOTE | 2018-12-11 05:59 | NUR ---
SHIFT SUMMARY PT HAD NO ISSUES OR COMPLAINTS. PT HAS SLEPT T/O SHIFT. PT USED HIS CPAP W/O ISSUE. PT DISCOMFORT TX PER EMAR. PT CURRENTLY SLEEPING IN NO DISTRESS. CALL LIGHT IN REACH.
--- NOTE | 2018-12-11 10:05 | NUR ---
CHANGED TO [facility] PT CHANGED TO [facility] BLOOD SUGAR CHECKS & COVERAGE PER DR. DEXTER
--- NOTE | 2018-12-11 17:10 | NUR ---
SYNOVIAL FLUID LAB ORDERS CLARIFIED. DR. GRIFFITH CALLED BACK TO CLARIFY SYNOVIAL KNEE FLUID ORDERED. A CULTURE, CRYSTAL EXAM, & CELL COUNT ORDERED FOR SYNOVIAL FLUID OF L KNEE.
[2018-12-11 17:23] LABS: Body Fluid Crystals NEG (NEGATIVE)
[2018-12-11 17:42] LABS: BODY FLUID RBC 0.067 (0-0); RBC Count, Synovial Fluid 67000 /mm3 (0-0)
[2018-12-11 18:00] LABS: WBC Count, Synovial Fluid 20640 /mm3 (0-180)
[2018-12-11 18:06] LABS: Appearance, Synovial Fluid Bloody (Clear); Color, Synovial Fluid Red (None-P Yel); Monocytes/Macrophages, Synovia 9 % (0-65); Neutrophils, Synovial Fluid 91 % (0-24)
--- NOTE | 2018-12-11 19:22 | NUR ---
SHIFT SUMMARY PT HAS L KNEE ASPIRATED VIA ULTRASOUND THIS SHIFT. FLUID SENT TO LAB. PT HAS REFUSED TO REPOSITION THROUGHOUT SHIFT. PT EDUCATED ON IMPORTANCE OF REPOSIONING THE BODY. NO OTHER CHANGES IN ASSESSMENT AT THIS TIME. VSS.
--- NOTE | 2018-12-12 04:00 | NUR ---
SHIFT SUMMARY PT HAD NO ISSUES OR COMPLAINTS NOTED. PT HAD NO ISSUES WITH PAIN OR DISCOMFORT. PT HAS SLEPT WELL T/O SHIFT. PT CURRENTLY SLEEPING IN NO DISTRESS. CALL LIGHT IN REACH.
[2018-12-12 05:26] LABS: BASOPHILS ABSOLUTE AUTO 0.03 K/mm3 (0.00-0.23); BASOPHILS PERCENT AUTO 0 % (0-2); EOSINOPHILS ABSOLUTE AUTO 0.07 K/mm3 (0.00-0.68); EOSINOPHILS PERCENT AUTO 1 % (0-6); Hematocrit 31.3 % (37.0-53.0); Hemoglobin 9.6 g/dL (13.5-17.5); IMMATURE GRAN ABSOLUTE AUTO 0.13 K/mm3 (0.00-0.10); IMMATURE GRAN PERCENT AUTO 1 % (0-1); LYMPHOCYTES PERCENT AUTO 9 % (21-46); MONOCYTES ABSOLUTE AUTO 1.17 K/mm3 (0.16-1.47); MONOCYTES PERCENT AUTO 10 % (4-13); Mean Corpuscular HGB 28.4 pg (26.0-34.0); Mean Corpuscular HGB Conc 30.7 g/dL (31.5-36.5); Mean Corpuscular Volume 93 fL (80-100); NEUTROPHILS ABSOLUTE AUTO 9.82 K/mm3 (1.96-9.15); NEUTROPHILS PERCENT AUTO 80 % (41-73); RDW Coefficient Variation 16.7 % (11.7-14.2); RDW Standard Deviation 56.9 fL (35.1-46.3); Red Blood Cell Count 3.38 M/mm3 (4.30-5.90); White Blood Cell Count 12.32 K/mm3 (4.00-11.30)
[2018-12-12 05:34] LABS: Mean Platelet Volume 10.7 fL (9.1-12.4); Platelet Count 153 K/mm3 (150-400)
--- NOTE | 2018-12-12 17:18 | NUR ---
SHIFT SUMMARY PT EXPERIENCED A FEW MINUTES OF TACHYCARDIA AT 1430. PT WAS NON-SYMPTOMATIC. PT GIVEN EVENING DOSE OF COREG. WILL CONTINUE TO MONITOR HR. OTHER VITALS STABLE. NO OTHER CHANGES IN ASSESSMENT AT THIS TIME. VSS. PT HAD LG BM THIS SHIFT. NEW PG PLACED. WILL CONTINUE TO MONITOR.
[2018-12-12 21:30] LABS: Glucose, Blood 636 mg/dL (70-99)
[2018-12-12 23:53] LABS: Glucose, Blood 597 mg/dL (70-99)
--- NOTE | 2018-12-13 01:53 | NUR ---
PT FOUND TO HAVE HIGH CBG. LAB CONFIREMED VIA LAB DRAW. CBG CAME BACK 636 MG/DL. PROVIDER CALLED AND OT ORDER OF IV REGULAR INSULIN, 10 UNITS, WAS ORDERED. CBG WAS RECHECKED AFTER AN HOUR. CBG WAS STILL HIGH. LAB CALLED FOR CONFIRMATION DRAW AGAIN. CBG CONFIRMED 597. PROVIDERS CALLED AND ORDER OF OT LANTUS 15 UNITS AND OT IV DOSE OF REGULAR INSULIN 10 UNITS WAS ORDERED. WILL RECHECK CBG AFTER HOUR AND REASESS. IT WAS DISCUSSED WITH PROVIDER THAT DUE TO USE OF SOLUMEDROL WILL INCREASE BLOOD GLUCOSE.
--- NOTE | 2018-12-13 03:49 | NUR ---
CALLED PROVIDER OF RECENT CBG OF 429. PROVIDER STATED TO CONTINUE TO MONITOR.
--- NOTE | 2018-12-13 04:31 | NUR ---
SHIFT SUMMARY PT HAS HAD SOME ISSUES WITH HIGH CBG'S. PROVIDERS WERE CALLED AND PT TREATED. PT STATED HE FEELS MUCH BETTER THIS SHIFT. HE WAS UP LATE ENJOYING TV. PT EDUCATED ON FOLLOWING ADA DIET. PT HAD NO OTHER COMPLAINTS OR ISSUES NOTED. PT CURRENTLY SLEEPING AND BREATHING EASY. WILL CONTINUE TO MONITOR. CALL LIGHT IN REACH.
--- NOTE | 2018-12-13 07:55 | NUR ---
DR DEXTER AWARE OF BLOOD SUGAR OVER 400. CHANGED LONG ACTING INSULIN DOSAGE AND TIMES.WCTM
--- NOTE | 2018-12-13 11:28 | NUR ---
LAB NOTIFIED BLOOD SUGAR OVER 500. CBG MACHINE JUST DOCKED. THEY WILL LOOK FOR ORDER.
[2018-12-13 12:03] LABS: Glucose, Blood 572 mg/dL (70-99)
--- NOTE | 2018-12-13 12:07 | NUR ---
AWARE BLD SUGAR 572. STS CHANGED STEROIDS TO P.O., JUST GIVE SLIDING SCALE.
--- NOTE | 2018-12-13 17:11 | NUR ---
PER DR.KHAN COTTER FOR NO IV ASSESS
[2018-12-13 17:16] LABS: Glucose, Blood 558 mg/dL (70-99)
--- NOTE | 2018-12-13 17:18 | NUR ---
AWARE BLD SUGAR 558 BEFORE DINNER. NO CHANGES IN MEDS.
--- NOTE | 2018-12-13 18:21 | NUR ---
ALERT. ORIENTED. IN MOST OF SHIFT. NO IV ASSESS NEEDED PER WHO WAS ALSO AWARE OF HIGH BLD SUGARS. PATIENT AMBULATORY FOR FIRST TIME SINCE ADMIT WITH HELPING HIM TO BATHROOM. UNLABORED RESPIRATIONS. TELE ON. WCTM
[2018-12-13 22:53] LABS: Glucose, Blood 597 mg/dL (70-99)
--- NOTE | 2018-12-14 01:36 | NUR ---
Pt blood sugar remains greater than 500. pt recieved 40 of lantus and 18 u lispro at hs. Blood sugar rechecked at 0100 and it was still > 500. notified. Additional one-time Order for lantus 20 units and 15 reg recieved. Insulin given. Will continue to monitor.
[2018-12-14 01:54] LABS: Bun/Creatinine Ratio 28.1 (12.0-20.0); Calcium, Blood 8.6 mg/dL (8.5-10.1); Creatinine, Blood 2.53 mg/dL (0.60-1.20); Glucose, Blood 556 mg/dL (70-99); Potassium, Blood 4.7 mmol/L (3.5-5.5)
--- NOTE | 2018-12-14 04:19 | NUR ---
Shift summary: Pt has had blood sugar > 500 all night. Pt nonsymtomatic. See prior note/ Md notified. An addtional dose of lantus and regular insulin given. Pt turned q 2 hours during the night. Pt cooperative c cares.
[2018-12-14] MEDS ORDERED: Cardura8 MG PO (12:15)
--- NOTE | 2018-12-14 18:50 | NUR ---
SHIFT SUMMARY NO ACUTE CHANGES. PATIENT DENIES PAIN, NAUSEA, AND SHORTNESS OF BREATH. PATIENT DECLINED TO GET OUT OF BED OR SIT ON SIDE OF BED THIS SHIFT. PATIENT HAD DISCHARGE PENDING BUT COULD NOT BE RELEASED DUE TO ELEVATED BLOOD SUGARS. FAMILY AT BEDSIDE. CALL LIGHT IN REACH.
[2018-12-15 05:18] LABS: Bun/Creatinine Ratio 30.2 (12.0-20.0); Calcium, Blood 8.7 mg/dL (8.5-10.1); Creatinine, Blood 2.55 mg/dL (0.60-1.20)
--- NOTE | 2018-12-15 05:24 | NUR ---
Pt had good night c no c/o discomfort. Blood sugar at hs was 420. Pt hoping to go home this am if blood sugar less than 300
--- NOTE | 2018-12-15 11:59 | NUR ---
DISCHARGE DISCHARGE MEDICATIONS AND INSTRUCTIONS EXPLAINED TO PATIENT AND PATIENT'S . THEY STATED UNDERSTANDING. FOLLOW UP APPOINTMENT WITH PCP SCHEDULED FOR DEC 21 AT 0830. PATIENT DID NOT HAVE IV ACCESS. PATIENT TRANSFERED TO PRIVATE VEHICLE VIA WHEELCHAIR.
[2019-02-27] MEDS ORDERED: ATORVASTATIN CA40 MG PO (19:56)
[2019-02-27] MEDS ORDERED: Aspir 8181 MG PO (20:00)
[2019-03-03] MEDS ORDERED: ACET325 PO (14:41)
[2019-03-03] MEDS ORDERED: HYDR1TAB94 PO (14:43)
[2019-03-03] MEDS ORDERED: LINZESS145 MCG PO (14:44)
[2019-03-03] MEDS ORDERED: PRED5 PO (14:44)
[2019-03-03] MEDS ORDERED: PRED1 PO (14:45)
[2019-03-03] MEDS ORDERED: MUPIROCIN15 GM TOP (14:46)
[2019-03-03] MEDS ORDERED: B COMPLEX PO (14:47)
[2019-03-03] MEDS ORDERED: Flonase 0.05% N16 GM (14:48)
[2019-03-03] MEDS ORDERED: Vitamin D2000 UNIT PO (14:49)
[2019-03-03] MEDS ORDERED: Sulfamethoxazo1 EAC1 PO (14:49)
[2019-03-04] MEDS ORDERED: JUVEN PACKET1 EACH PO (11:27)
== END 2018-12-15 11:10 | disposition home or self-care (01) | DRG 549 ==
LOC: ER 15:46 → MEDS 22:57 → ENPENDDIS 12-15 10:26 → MEDS 12-15 11:10
PROVIDERS: Emergency Medicine; Internal Medicine; Nurse Practitioner Acute Care; Orthopaedic Surgery; Physician Assistant; ADMIT Internal Medicine
PROC: 0S9D3ZX Drainage of Left Knee Joint, Percutaneous Approach, Diagnostic (ICD-10-PCS; principal; 2018-12-11)
DX: M00.9 Pyogenic arthritis, unspecified (principal); R65.10 Systemic inflammatory response syndrome (SIRS) of non-infectious origin without acute organ dysfunction; I13.0 Hypertensive heart and chronic kidney disease with heart failure and stage 1 through stage 4 chronic kidney disease, or unspecified chronic kidney disease; I50.32 Chronic diastolic (congestive) heart failure; E11.22 Type 2 diabetes mellitus with diabetic chronic kidney disease; N18.3 Chronic kidney disease, stage 3 (moderate); G47.33 Obstructive sleep apnea (adult) (pediatric); E66.01 Morbid (severe) obesity due to excess calories; Z86.718 Personal history of other venous thrombosis and embolism; Z79.01 Long term (current) use of anticoagulants; F32.9 Major depressive disorder, single episode, unspecified; K21.9 Gastro-esophageal reflux disease without esophagitis; E11.65 Type 2 diabetes mellitus with hyperglycemia
CPT/HCPCS: 20610; 20611; 36415; 73564; 76882; 76942; 80048; 80053; 80202; 82947; 83605; 83735; 85025; 85610; 85651; 86140; 87040; 87070; 87075; 87205; 89051; 89060; 94660; 94762; 96361-59; 96365-59; 96367-59; 99285-25; A9270; A9270-GY; J0696; J1815; J2920; J3370; J7030; J7050; J7512

== ENCOUNTER → 2019-01-03 | Outpatient (CLI) | payer MEDICARE, OTHER ==
[~2019-01-03] MED LIST changes: +ATORVASTATIN CA40 MG PO; +Aspir 8181 MG PO; +B COMPLEX PO; +Bactrim 400-801 EACH PO; +Bumetanide2 MG; +Cardura8 MG PO; +Flonase 0.05% N16 GM; +HYDR1TAB94 PO; +Hydrocodone-Ap1 EA23 PO; +JUVEN PACKET1 EACH PO; +LINZESS145 MCG PO; +MUPIROCIN15 GM TOP; +NOVOLOG FL100 UNIT/1 SC; +OMEPRAZOLE20 MG PO; +POTA10T PO; +PRED1 PO; +PRED5 PO; +Prednisone1 MG PO; +Prednisone5 MG PO; +Sulfamethoxazo1 EAC1 PO; +Synthroid88 MCG PO; +Vitamin D2000 UNIT PO
== END ==
LOC: PLD 07:47 → LAB SHORT 07:47
DX: D22.5 Melanocytic nevi of trunk (principal)
CPT/HCPCS: 88305

== ENCOUNTER 2019-02-21 00:35 | Day surgery (SDC) | payer MEDICARE, OTHER ==
[~2019-02-21 00:35] MED LIST changes: -ATORVASTATIN CA40 MG PO; -Aspir 8181 MG PO; -B COMPLEX PO; -Flonase 0.05% N16 GM; -HYDR1TAB94 PO; -JUVEN PACKET1 EACH PO; -MUPIROCIN15 GM TOP; -OMEPRAZOLE20 MG PO; -Prednisone1 MG PO; -Prednisone5 MG PO; -Vitamin D2000 UNIT PO
[2019-02-27] MEDS ORDERED: ATORVASTATIN CA40 MG PO (19:56)
[2019-02-27] MEDS ORDERED: Aspir 8181 MG PO (20:00)
[2019-03-03] MEDS ORDERED: ACET325 PO (14:41)
[2019-03-03] MEDS ORDERED: HYDR1TAB94 PO (14:43)
[2019-03-03] MEDS ORDERED: PRED5 PO (14:44)
[2019-03-03] MEDS ORDERED: LINZESS145 MCG PO (14:44)
[2019-03-03] MEDS ORDERED: PRED1 PO (14:45)
[2019-03-03] MEDS ORDERED: MUPIROCIN15 GM TOP (14:46)
[2019-03-03] MEDS ORDERED: B COMPLEX PO (14:47)
[2019-03-03] MEDS ORDERED: Flonase 0.05% N16 GM (14:48)
[2019-03-03] MEDS ORDERED: Sulfamethoxazo1 EAC1 PO (14:49)
[2019-03-03] MEDS ORDERED: Vitamin D2000 UNIT PO (14:49)
[2019-03-04] MEDS ORDERED: JUVEN PACKET1 EACH PO (11:27)
== END 2019-02-21 22:40 | disposition home or self-care (01) ==
LOC: WOUND 00:35
DX: E11.622 Type 2 diabetes mellitus with other skin ulcer (principal); L97.821 Non-pressure chronic ulcer of other part of left lower leg limited to breakdown of skin; I87.2 Venous insufficiency (chronic) (peripheral); I13.2 Hypertensive heart and chronic kidney disease with heart failure and with stage 5 chronic kidney disease, or end stage renal disease; E11.22 Type 2 diabetes mellitus with diabetic chronic kidney disease; N18.6 End stage renal disease; I50.9 Heart failure, unspecified; E11.40 Type 2 diabetes mellitus with diabetic neuropathy, unspecified; G47.33 Obstructive sleep apnea (adult) (pediatric); Z99.89 Dependence on other enabling machines and devices
CPT/HCPCS: G0463

== ENCOUNTER 2019-02-23 00:48 | Day surgery (SDC) | payer MEDICARE, OTHER ==
[2019-02-27] MEDS ORDERED: ATORVASTATIN CA40 MG PO (19:56)
[2019-02-27] MEDS ORDERED: Aspir 8181 MG PO (20:00)
[2019-03-03] MEDS ORDERED: ACET325 PO (14:41)
[2019-03-03] MEDS ORDERED: HYDR1TAB94 PO (14:43)
[2019-03-03] MEDS ORDERED: PRED5 PO (14:44)
[2019-03-03] MEDS ORDERED: LINZESS145 MCG PO (14:44)
[2019-03-03] MEDS ORDERED: PRED1 PO (14:45)
[2019-03-03] MEDS ORDERED: MUPIROCIN15 GM TOP (14:46)
[2019-03-03] MEDS ORDERED: B COMPLEX PO (14:47)
[2019-03-03] MEDS ORDERED: Flonase 0.05% N16 GM (14:48)
[2019-03-03] MEDS ORDERED: Sulfamethoxazo1 EAC1 PO (14:49)
[2019-03-03] MEDS ORDERED: Vitamin D2000 UNIT PO (14:49)
[2019-03-04] MEDS ORDERED: JUVEN PACKET1 EACH PO (11:27)
== END 2019-02-23 22:53 | disposition home or self-care (01) ==
LOC: WOUND 00:48
DX: E11.622 Type 2 diabetes mellitus with other skin ulcer (principal); L97.821 Non-pressure chronic ulcer of other part of left lower leg limited to breakdown of skin; I87.2 Venous insufficiency (chronic) (peripheral); I13.2 Hypertensive heart and chronic kidney disease with heart failure and with stage 5 chronic kidney disease, or end stage renal disease; I50.9 Heart failure, unspecified; E11.22 Type 2 diabetes mellitus with diabetic chronic kidney disease; N18.6 End stage renal disease; E03.9 Hypothyroidism, unspecified; G47.33 Obstructive sleep apnea (adult) (pediatric); E11.40 Type 2 diabetes mellitus with diabetic neuropathy, unspecified; M10.9 Gout, unspecified; Z99.89 Dependence on other enabling machines and devices

== ENCOUNTER 2019-02-27 17:47 | Inpatient (IN) | payer MEDICARE, OTHER ==
[~2019-02-27] VITALS: Ht 180.3 cm; Wt 147.4 kg
[2019-02-27 18:11] LABS: BASOPHILS ABSOLUTE AUTO 0.03 K/mm3 (0.00-0.23); BASOPHILS PERCENT AUTO 0 % (0-2); EOSINOPHILS ABSOLUTE AUTO 0.02 K/mm3 (0.00-0.68); EOSINOPHILS PERCENT AUTO 0 % (0-6); Hematocrit 34.5 % (37.0-53.0); Hemoglobin 10.6 g/dL (13.5-17.5); IMMATURE GRAN ABSOLUTE AUTO 0.16 K/mm3 (0.00-0.10); IMMATURE GRAN PERCENT AUTO 1 % (0-1); LYMPHOCYTES ABSOLUTE AUTO 0.72 K/mm3 (0.84-5.20); LYMPHOCYTES PERCENT AUTO 5 % (21-46); MONOCYTES ABSOLUTE AUTO 1.24 K/mm3 (0.16-1.47); MONOCYTES PERCENT AUTO 8 % (4-13); Mean Corpuscular HGB 28.8 pg (26.0-34.0); Mean Corpuscular HGB Conc 30.7 g/dL (31.5-36.5); Mean Corpuscular Volume 94 fL (80-100); Mean Platelet Volume 9.7 fL (9.1-12.4); NEUTROPHILS ABSOLUTE AUTO 13.68 K/mm3 (1.96-9.15); NEUTROPHILS PERCENT AUTO 86 % (41-73); Platelet Count 172 K/mm3 (150-400); RDW Coefficient Variation 15.9 % (11.7-14.2); RDW Standard Deviation 54.7 fL (35.1-46.3); Red Blood Cell Count 3.68 M/mm3 (4.30-5.90); White Blood Cell Count 15.85 K/mm3 (4.00-11.30)
[2019-02-27 18:30] LABS: Albumin, Blood 2.5 g/dL (3.4-5.0); Albumin/Globulin Ratio 0.6 (0.8-1.8); Bilirubin, Total 0.9 mg/dL (0.1-1.0); Bun/Creatinine Ratio 19.5 (12.0-20.0); Calcium, Blood 8.4 mg/dL (8.5-10.1); Creatinine, Blood 2.05 mg/dL (0.60-1.20); Total Protein, Blood 6.5 g/dL (6.4-8.2)
[2019-02-27] MEDS ORDERED: ATORVASTATIN CA40 MG PO ×2 (19:56)
[2019-02-27] MEDS ORDERED: Prednisone5 MG PO (19:58)
[2019-02-27] MEDS ORDERED: Prednisone1 MG PO (19:58)
[2019-02-27] MEDS ORDERED: OMEPRAZOLE20 MG PO (19:59)
[2019-02-27] MEDS ORDERED: Aspir 8181 MG PO ×2 (20:00)
[2019-02-28 01:43] LABS: Source, Urine Clean Catch
[2019-02-28 01:46] LABS: Bilirubin, Urine Neg (Neg); Blood, Urine 4+ (Neg); Glucose Qualitative, Urine Neg (Neg); Ketones, Urine Neg (Neg); Leukocyte Esterase, Urine 1+ (Neg); Nitrite, Urine Neg (Neg); Protein, Urine 2+ (Neg); Specific Gravity, Urine 1.015 (1.003-1.022); Urobilinogen, Urine NORM (Normal)
[2019-02-28 01:52] LABS: Appearance, Urine Clear (Clear); Color, Urine Yellow (P-Yellow)
[2019-02-28 01:53] LABS: Bacteria Mod /hpf; Hyaline Casts 0-2 /lpf (0-2); Red Blood Cells, Urine 0-2 /hpf (0-2); Squamous Epithelial Cells Rare /hpf (Few)
--- NOTE | 2019-02-28 05:13 | NUR ---
SHIFT SUMMARY PT NEW ED ADMIT THIS EVENING. PT REMAINED IN BED THIS EVENING. R ARM SWOLLEN, RED, AND VERY PAINFUL WITH MOVEMENT. MEDICATED X 1 W/ 10 MG ROXICODONE. ALSO MEDICATED PT W/ 650 MG TYLENOL FOR LOW GRADE TEMP OF 100.2 DEG F. TEMP THIS AM 99.0. PT TO HAVE MRI OF R ARM TODAY. MRI SCREENING FORM FILLED OUT AND FAXED. PT HAS OLD WOUND TO LLE THAT PT IS BEING SEEN AT THE WOUND CLINIC FOR. DRESSING CHANGED AND PICTURES TAKEN OF WOUNDS AND PLACED IN CHART. PT ON BIPAP AT NIGHT, RA OTHERWISE. PACEMAKER NOTED. UA COLLECTED AND SENT. PT PLEASANT AND COOPERATIVE. WILL CONTINUE TO MONITOR AND REPORT TO DAY RN.
[2019-02-28 05:46] LABS: BASOPHILS ABSOLUTE AUTO 0.03 K/mm3 (0.00-0.23); BASOPHILS PERCENT AUTO 0 % (0-2); EOSINOPHILS ABSOLUTE AUTO 0.01 K/mm3 (0.00-0.68); EOSINOPHILS PERCENT AUTO 0 % (0-6); Hematocrit 30.9 % (37.0-53.0); Hemoglobin 9.5 g/dL (13.5-17.5); IMMATURE GRAN ABSOLUTE AUTO 0.12 K/mm3 (0.00-0.10); IMMATURE GRAN PERCENT AUTO 1 % (0-1); LYMPHOCYTES PERCENT AUTO 6 % (21-46); MONOCYTES ABSOLUTE AUTO 1.32 K/mm3 (0.16-1.47); MONOCYTES PERCENT AUTO 9 % (4-13); Mean Corpuscular HGB 28.3 pg (26.0-34.0); Mean Corpuscular HGB Conc 30.7 g/dL (31.5-36.5); Mean Corpuscular Volume 92 fL (80-100); Mean Platelet Volume 10.4 fL (9.1-12.4); NEUTROPHILS ABSOLUTE AUTO 12.83 K/mm3 (1.96-9.15); NEUTROPHILS PERCENT AUTO 84 % (41-73); Platelet Count 172 K/mm3 (150-400); RDW Coefficient Variation 15.9 % (11.7-14.2); RDW Standard Deviation 53.9 fL (35.1-46.3); Red Blood Cell Count 3.36 M/mm3 (4.30-5.90); White Blood Cell Count 15.21 K/mm3 (4.00-11.30)
[2019-02-28 06:09] LABS: Bun/Creatinine Ratio 18.1 (12.0-20.0); Calcium, Blood 8.3 mg/dL (8.5-10.1); Creatinine, Blood 2.1 mg/dL (0.60-1.20); Potassium, Blood 3.8 mmol/L (3.5-5.5)
--- NOTE | 2019-02-28 16:59 | NUR ---
SHIFT SUMMARY: PT IS A/O X 4 WITH MOMENTS OF FORGETFULLNESS. PT IS AT BEDSIDE AND IS VERY INVOLVED IN HIS CARE. SWELLING AND PAIN REMIAN TO RUE AND PT REPORTS THERE IS ALMOST NO PAIN UNLESS HE MOVES IT. PT IS SCHEDULED TO HAVE FLUID DRAINED FROM THE ARM TOMORROW. PT IS A MAX ASSIST FOR ADLS AND TURNING AND RE-POSITIONING. PT REPORTS THAT AT HOME PRIOR TO THIS HE WALKS WITH A WALKER. PT IS RESTING IN BED AND IS ABLE TO MAKE HIS NEEDS KNOWN.
--- NOTE | 2019-02-28 22:39 | NUR ---
02/28/190 CPAP ON. PT REFUSED TO TURN AT THIS TIME. ORAL FLUIDS GIVEN WITH MEDS. VOIDED EARLIER.
[2019-03-01 05:32] LABS: BASOPHILS ABSOLUTE AUTO 0.03 K/mm3 (0.00-0.23); BASOPHILS PERCENT AUTO 0 % (0-2); EOSINOPHILS ABSOLUTE AUTO 0.02 K/mm3 (0.00-0.68); EOSINOPHILS PERCENT AUTO 0 % (0-6); IMMATURE GRAN PERCENT AUTO 1 % (0-1); LYMPHOCYTES PERCENT AUTO 7 % (21-46); MONOCYTES ABSOLUTE AUTO 1.24 K/mm3 (0.16-1.47); MONOCYTES PERCENT AUTO 9 % (4-13); Mean Corpuscular HGB 28.6 pg (26.0-34.0); Mean Corpuscular HGB Conc 31.3 g/dL (31.5-36.5); Mean Corpuscular Volume 91 fL (80-100); Mean Platelet Volume 10.6 fL (9.1-12.4); NEUTROPHILS PERCENT AUTO 83 % (41-73); Platelet Count 179 K/mm3 (150-400); RDW Standard Deviation 54.2 fL (35.1-46.3); White Blood Cell Count 13.79 K/mm3 (4.00-11.30)
[2019-03-01 05:48] LABS: International Normalized Ratio 1.07; Prothrombin Time Results 11.3 Sec (9.7-11.5)
[2019-03-01 06:03] LABS: Anion Gap 9 mmol/L (6-16); Blood Urea Nitrogen 47 mg/dL (8-24); Bun/Creatinine Ratio 18.4 (12.0-20.0); CO2, Blood 26 mmol/L (21-32); Calcium, Blood 8.3 mg/dL (8.5-10.1); Chloride, Blood 102 mmol/L (98-108); Creatinine, Blood 2.56 mg/dL (0.60-1.20); Glomerular Filtration Rate 26 (60-); Glucose, Blood 199 mg/dL (70-99); Sodium, Blood 137 mmol/L (136-145)
[2019-03-01 06:20] LABS: C-REACTIVE PROTEIN, EXT RANGE >19.000 mg/dL (0.000-0.300)
--- NOTE | 2019-03-01 07:19 | NUR ---
03/01/19 0610 PT REFUSED TO TURN THIS SHIFT. RN AND TIPPLE OPERATOR ELEVATED HIS RT ARM TO HELP DECREASE SWELLING BUT PT WAS NOT HAPPY. RN ATTEMPTED TO REMIND HIM ABOUT NPO FOR PROCEDURE/SURGERY TODAY BUT STATED, "DON'T TELL ME ANYTHING! " HE BECAME VERY ANGRY ABOUT THIS ISSUE AND REFUSED TO DISCUSS IT.
--- NOTE | 2019-03-01 09:24 | NUR ---
NURSE IN ROOM TO GIVE MORNING MEDS, TRANSPORT ARRIVED TO TAKE PT TO ULTRASOUND FOR PROCEDURE. NURSE WILL GIVE MEDS WHEN PT COMES BACK TO ROOM.
[2019-03-01 13:30] LABS: Body Fluid Crystals POS (NEGATIVE)
[2019-03-01 13:50] LABS: BODY FLUID RBC 0.014 M/mm3 (0-0); RBC Count, Synovial Fluid 14000 /mm3 (0-0)
[2019-03-01 14:57] LABS: WBC Count, Synovial Fluid 16922 /mm3 (0-180)
[2019-03-01 15:13] LABS: Lymphs, Synovial Fluid 2 % (0-15); Monocytes/Macrophages, Synovia 5 % (0-65); Neutrophils, Synovial Fluid 93 % (0-24)
[2019-03-01 15:15] LABS: Appearance, Synovial Fluid Cloudy (Clear); Color, Synovial Fluid Dark Yellow (None-P Yel)
--- NOTE | 2019-03-01 19:28 | NUR ---
SHIFT SUMMARY PT AXO, IRRITABLE, ANGRY AND SHORT TEMPERED THROUGHOUT THE DAY. REFUSED REPOSITIONING AND YELLS WHEN NURSE PLACED PILLOWS UNDER ARM. PT HAD ASPIRATION OF FLUID, SEE LABS AND NOTE. VSS. PT REFUSED PT AND OT. BED IN LOW POSITION, CALL LIGHT WITHIN REACH. JOHN PINTO CONTACTED [facility] IN ORDER TO GET RESULTS OF RECENT STRESS TEST AND ECHO THAT WAS DONE THERE PER REQUEST. AWAITING THE ARRIVAL OF THOSE VIA FAX.
--- NOTE | 2019-03-02 04:26 | NUR ---
03/02/19 0350 FINISHED STOCK INSPECTOR WAS ATTEMPTING TO TAKE VITALS AND ASKED PT TO LIFT LEFT ARM TO APPLY BP CUFF. NO EFFORT MADE FROM PT. FINISHED STOCK INSPECTOR LIFTED PT'S LEFT ARM AND PT THREATHENED "i will PUNCH YOU!" "I NEED TO PROTECT MYSELF!" FINISHED STOCK INSPECTOR REASSURED HIM THAT SHE WILL BE GENTLE AND NEEDS TO GET THE VITALS. PT ALLOWED HER TO TAKE VITALS. RN GAVE PAIN MED IV PER ORDER. PT FELL ASLEEP AFTERWARDS. VITALS REMAIN STABLE. RT ARM ELEVATED ON PILLOW. PT REFUSED TO TURN ON SIDE.
[2019-03-02 08:37] LABS: BASOPHILS ABSOLUTE AUTO 0.03 K/mm3 (0.00-0.23); BASOPHILS PERCENT AUTO 0 % (0-2); EOSINOPHILS ABSOLUTE AUTO 0.04 K/mm3 (0.00-0.68); EOSINOPHILS PERCENT AUTO 0 % (0-6); Hematocrit 30.3 % (37.0-53.0); Hemoglobin 9.5 g/dL (13.5-17.5); IMMATURE GRAN PERCENT AUTO 1 % (0-1); LYMPHOCYTES ABSOLUTE AUTO 0.82 K/mm3 (0.84-5.20); LYMPHOCYTES PERCENT AUTO 6 % (21-46); MONOCYTES ABSOLUTE AUTO 1.11 K/mm3 (0.16-1.47); MONOCYTES PERCENT AUTO 8 % (4-13); Mean Corpuscular HGB 28.2 pg (26.0-34.0); Mean Corpuscular HGB Conc 31.4 g/dL (31.5-36.5); Mean Corpuscular Volume 90 fL (80-100); Mean Platelet Volume 10.7 fL (9.1-12.4); NEUTROPHILS ABSOLUTE AUTO 11.04 K/mm3 (1.96-9.15); NEUTROPHILS PERCENT AUTO 84 % (41-73); Platelet Count 146 K/mm3 (150-400); RDW Coefficient Variation 15.9 % (11.7-14.2); RDW Standard Deviation 52.3 fL (35.1-46.3); Red Blood Cell Count 3.37 M/mm3 (4.30-5.90); White Blood Cell Count 13.14 K/mm3 (4.00-11.30)
[2019-03-02 08:59] LABS: Albumin, Blood 1.9 g/dL (3.4-5.0); Anion Gap 10 mmol/L (6-16); Blood Urea Nitrogen 67 mg/dL (8-24); Bun/Creatinine Ratio 26.1 (12.0-20.0); CO2, Blood 24 mmol/L (21-32); Calcium, Blood 8.2 mg/dL (8.5-10.1); Chloride, Blood 102 mmol/L (98-108); Creatinine, Blood 2.57 mg/dL (0.60-1.20); Glomerular Filtration Rate 25 (60-); Glucose, Blood 210 mg/dL (70-99); Phosphorus, Blood 3.7 mg/dL (2.5-4.9); Potassium, Blood 4.4 mmol/L (3.5-5.5); Sodium, Blood 136 mmol/L (136-145)
--- NOTE | 2019-03-02 13:33 | NUR ---
Pt. is lying in bed resting and talking with the daughter , pt is doing well offered prayer
--- NOTE | 2019-03-02 17:15 | NUR ---
PT A/O. ROLLED PT TODAY AND PUT LIFT SHEET UNDER PT AND CHANGED LINENS. PT WAS PAINFUL DURING THIS. EXPLAINED TO PT THAT WE COULD NOT LEAVE HIM IN SATURATED LINENS. PT AT BEDSIDE. PT WAS ADJUSTED IN BED AND STATED BEING MUCH MORE COMFORTABLE. PT AT BEDSIDE DURING MUCH OF THIS SHIFT.
--- NOTE | 2019-03-03 02:38 | NUR ---
SLEEPING QUIETLY AT INTERVALS, CONTINUOUS C PAP AT NIGHT. O2 SATS 90'S, BUT HR FLUCTUATES 50'S TO 90'S WHEN MONITORED. BP WAS LOWER IN THE HS, MED HELD, HIGHER IN THE MIDDLE OF THE NIGHT - SEE DOC FLOW SHEETS FOR DETAILS. WHEN AWAKENED IN THE NIGHT FOR ADLS, STATED DIDNT NEED TO VOID, WOULD CALL IF HE DID NEED. ORIENTED TO CALL LIGHT, CALL LIGHT IN REACH.
[2019-03-03 07:47] LABS: Albumin, Blood 1.8 g/dL (3.4-5.0); Anion Gap 9 mmol/L (6-16); Blood Urea Nitrogen 79 mg/dL (8-24); Bun/Creatinine Ratio 33.5 (12.0-20.0); CO2, Blood 24 mmol/L (21-32); Calcium, Blood 8.7 mg/dL (8.5-10.1); Chloride, Blood 102 mmol/L (98-108); Creatinine, Blood 2.36 mg/dL (0.60-1.20); Glomerular Filtration Rate 28 (60-); Glucose, Blood 319 mg/dL (70-99); Phosphorus, Blood 4.4 mg/dL (2.5-4.9); Sodium, Blood 135 mmol/L (136-145)
--- NOTE | 2019-03-03 07:51 | NUR ---
PT HR WAS IN THE 30'S THIS MORNING. NOTIFIED PHYSICIAN, ORDERS FOR TELE, EKG, AND PACER INTERIGATION PLACED. NOTIFIED [facility], DOG HAIR CLIPPER, AND ORDERED TELE.
--- NOTE | 2019-03-03 11:56 | NUR ---
PACEMAKER CHECKED BY ROBEL ([employer] REP) PER HOSPITALIST REQUEST CAPTURE/KAVITHA CONCERNS. REPROGRAMMED FOR BETTER CAPTURE ON RV/HIS LEAD, REPORT ROUTED TO DR CARLIN IN [place] ([facility])
--- NOTE | 2019-03-03 13:55 | NUR ---
Met pt. lying in bed resting , reports doing much better offered prayers and supports
[2019-03-03] MEDS ORDERED: ACET325 PO ×2 (14:41)
[2019-03-03] MEDS ORDERED: HYDR1TAB94 PO ×2 (14:43)
[2019-03-03] MEDS ORDERED: LINZESS145 MCG PO ×2 (14:44)
[2019-03-03] MEDS ORDERED: PRED5 PO ×2 (14:44)
[2019-03-03] MEDS ORDERED: PRED1 PO ×2 (14:45)
[2019-03-03] MEDS ORDERED: MUPIROCIN15 GM TOP ×2 (14:46)
[2019-03-03] MEDS ORDERED: B COMPLEX PO ×2 (14:47)
[2019-03-03] MEDS ORDERED: Flonase 0.05% N16 GM ×2 (14:48)
[2019-03-03] MEDS ORDERED: Vitamin D2000 UNIT PO ×2 (14:49)
[2019-03-03] MEDS ORDERED: Sulfamethoxazo1 EAC1 PO ×2 (14:49)
--- NOTE | 2019-03-03 16:23 | NUR ---
PT IS ALERT. HE IS MORE ORIENTATED TODAY. PT CONFESSED THAT HE WAS VERY CONFUSED YESTERDAY AND THAT THE WAS HAVING HALLUCINATIONS. PT REFUSED PT AND OT. REPOSITIONED ONCE AND PT REFUSED THEREAFTER. PT AT BEDSIDE. PT IS SHOWING LESS SENSITIVITY IN HIS ARMS AND HAS MORE MOVMENT THAN THE DAY BEFORE. HE IS ABLE TO LIFT HIS ARMS ABOVE HIS HEAD. PT STATES THAT HE IS FEELING MUCH BETTER.
--- NOTE | 2019-03-04 03:34 | NUR ---
PT MORE ACTIVE THIS SHIFT THAN NOTED 24 HRS PREVIOUS. PT DISPLAYED ABILITY TO MOVE ARMS AND LEGS ABOUT WITHOUT DIFFICULTY, EVEN ASSISTED STAFF WITH REPOSITIONING. LATER IN THE SHIFT, EVEN CALLED FOR ASSIST WITH THE URINAL AND WAS CONTINENT DOING SO. MED TELE SINUS PER TELE MONITOR. O2 SATS IN THE MID-HIGH 90'S. CALL LIGHT IN REACH. WILL CONTINUE TO MONITOR.
[2019-03-04] MEDS ORDERED: JUVEN PACKET1 EACH PO ×2 (11:27)
[2019-03-04 11:54] LABS: BASOPHILS ABSOLUTE AUTO 0.01 K/mm3 (0.00-0.23); BASOPHILS PERCENT AUTO 0 % (0-2); EOSINOPHILS ABSOLUTE AUTO 0.01 K/mm3 (0.00-0.68); EOSINOPHILS PERCENT AUTO 0 % (0-6); Hematocrit 29.9 % (37.0-53.0); Hemoglobin 9.2 g/dL (13.5-17.5); IMMATURE GRAN ABSOLUTE AUTO 0.09 K/mm3 (0.00-0.10); IMMATURE GRAN PERCENT AUTO 1 % (0-1); LYMPHOCYTES ABSOLUTE AUTO 0.39 K/mm3 (0.84-5.20); LYMPHOCYTES PERCENT AUTO 4 % (21-46); MONOCYTES ABSOLUTE AUTO 0.46 K/mm3 (0.16-1.47); MONOCYTES PERCENT AUTO 4 % (4-13); Mean Corpuscular HGB 28.1 pg (26.0-34.0); Mean Corpuscular HGB Conc 30.8 g/dL (31.5-36.5); Mean Corpuscular Volume 91 fL (80-100); Mean Platelet Volume 11.7 fL (9.1-12.4); NEUTROPHILS ABSOLUTE AUTO 9.96 K/mm3 (1.96-9.15); NEUTROPHILS PERCENT AUTO 91 % (41-73); Platelet Count 166 K/mm3 (150-400); RDW Coefficient Variation 15.2 % (11.7-14.2); RDW Standard Deviation 50.8 fL (35.1-46.3); Red Blood Cell Count 3.27 M/mm3 (4.30-5.90); White Blood Cell Count 10.92 K/mm3 (4.00-11.30)
[2019-03-04 12:02] LABS: Albumin, Blood 1.8 g/dL (3.4-5.0); Anion Gap 10 mmol/L (6-16); Blood Urea Nitrogen 89 mg/dL (8-24); Bun/Creatinine Ratio 43.6 (12.0-20.0); CO2, Blood 23 mmol/L (21-32); Chloride, Blood 101 mmol/L (98-108); Creatinine, Blood 2.04 mg/dL (0.60-1.20); Glomerular Filtration Rate 33 (60-); Glucose, Blood 397 mg/dL (70-99); Phosphorus, Blood 2.9 mg/dL (2.5-4.9); Potassium, Blood 4.4 mmol/L (3.5-5.5); Sodium, Blood 134 mmol/L (136-145)
--- NOTE | 2019-03-04 12:02 | NUR ---
PT REFUSING [facility] HAS NOT PRIVATE ROOMS AT THIS TIME. PT TO BE DISCHARGED TO HOME PER DR DEXTER.
--- NOTE | 2019-03-04 13:17 | NUR ---
ASSUMED CARE FOR PATIENT AT THIS TIME FROM [facility]. PT TO BE DC'D HOME SHORTLY. AWAITING TO ARRIVE TO DISCUSS TRANSPORT HOME PATIENT HAS BEEN A LIFT BUT APPARENTLY HE CAN TRANSFER TO A WHEELCHAIR.
--- NOTE | 2019-03-04 15:04 | NUR ---
PATIENT DC'D HOME VIA WHEELCHAIR WITH SPOUSE. STOOD WELL WITH 1PA. NO CONCERNS ABOUT DC PAPERWORK
== END 2019-03-04 14:40 | disposition home or self-care (01) | DRG 554 ==
LOC: DELPENDDIS → ER 17:47 → MEDS 23:29 → ENPENDDIS 03-01 11:30 → MEDS 03-02 08:17 → ENPENDDIS 03-04 11:39 → MEDS 03-04 14:40
PROVIDERS: Emergency Medicine; Internal Medicine; Physician Assistant; ADMIT Hospitalist
PROC: 0R9L3ZX Drainage of Right Elbow Joint, Percutaneous Approach, Diagnostic (ICD-10-PCS; principal; 2019-02-28)
DX: M10.021 Idiopathic gout, right elbow (principal); L02.413 Cutaneous abscess of right upper limb; I13.0 Hypertensive heart and chronic kidney disease with heart failure and stage 1 through stage 4 chronic kidney disease, or unspecified chronic kidney disease; I50.32 Chronic diastolic (congestive) heart failure; N18.4 Chronic kidney disease, stage 4 (severe); Z68.43 Body mass index [BMI] 50.0-59.9, adult; M31.30 Wegener's granulomatosis without renal involvement; G47.33 Obstructive sleep apnea (adult) (pediatric); E66.01 Morbid (severe) obesity due to excess calories; E11.22 Type 2 diabetes mellitus with diabetic chronic kidney disease; E78.5 Hyperlipidemia, unspecified; E03.9 Hypothyroidism, unspecified; M10.9 Gout, unspecified; I25.10 Atherosclerotic heart disease of native coronary artery without angina pectoris; E11.65 Type 2 diabetes mellitus with hyperglycemia; Z91.19 Patient's noncompliance with other medical treatment and regimen; Z95.0 Presence of cardiac pacemaker; Z86.718 Personal history of other venous thrombosis and embolism; M32.9 Systemic lupus erythematosus, unspecified; Z79.01 Long term (current) use of anticoagulants; E11.42 Type 2 diabetes mellitus with diabetic polyneuropathy; D63.1 Anemia in chronic kidney disease; E88.81 Metabolic syndrome and other insulin resistance
CPT/HCPCS: 20606; 36415; 71046; 73030; 73080; 80048; 80053; 80069; 81001; 82947; 83880; 84484; 85025; 85610; 85730; 86140; 87070; 87075; 87086; 87205; 89051; 89060; 93005; 93010; 93971; 94660; 94762; 96365; 96372-59; 97162; 97166; 97530; 97535; 99285-25; A9270; J0881; J1650; J3010; J3370; J7050; J7512

== ENCOUNTER 2019-03-07 15:14 | Day surgery (SDC) | payer MEDICARE, OTHER ==
[~2019-03-07 15:14] MED LIST changes: +ATORVASTATIN CA40 MG PO; +Aspir 8181 MG PO; +B COMPLEX PO; +Flonase 0.05% N16 GM; +HYDR1TAB94 PO; +JUVEN PACKET1 EACH PO; +MUPIROCIN15 GM TOP; +OMEPRAZOLE20 MG PO; +Prednisone1 MG PO; +Prednisone5 MG PO; +Vitamin D2000 UNIT PO
== END 2019-03-07 22:52 | disposition home or self-care (01) ==
LOC: WOUND 15:14
DX: L97.821 Non-pressure chronic ulcer of other part of left lower leg limited to breakdown of skin (principal); I87.2 Venous insufficiency (chronic) (peripheral); I13.0 Hypertensive heart and chronic kidney disease with heart failure and stage 1 through stage 4 chronic kidney disease, or unspecified chronic kidney disease; E11.22 Type 2 diabetes mellitus with diabetic chronic kidney disease; I50.9 Heart failure, unspecified; N18.9 Chronic kidney disease, unspecified; E03.9 Hypothyroidism, unspecified; G47.33 Obstructive sleep apnea (adult) (pediatric); E78.5 Hyperlipidemia, unspecified; I44.1 Atrioventricular block, second degree; Z99.89 Dependence on other enabling machines and devices; Z79.899 Other long term (current) drug therapy; Z79.4 Long term (current) use of insulin; Z79.82 Long term (current) use of aspirin

== ENCOUNTER 2019-03-14 00:32 | Day surgery (SDC) | payer MEDICARE, OTHER | END 2019-03-14 22:35 | disposition home or self-care (01) | LOC: WOUND 00:32 | DX: E11.622 Type 2 diabetes mellitus with other skin ulcer (principal); L97.821 Non-pressure chronic ulcer of other part of left lower leg limited to breakdown of skin; I13.0 Hypertensive heart and chronic kidney disease with heart failure and stage 1 through stage 4 chronic kidney disease, or unspecified chronic kidney disease; E11.22 Type 2 diabetes mellitus with diabetic chronic kidney disease; I87.2 Venous insufficiency (chronic) (peripheral); I50.9 Heart failure, unspecified; N18.9 Chronic kidney disease, unspecified; E03.9 Hypothyroidism, unspecified; G47.33 Obstructive sleep apnea (adult) (pediatric); Z99.89 Dependence on other enabling machines and devices; Z79.899 Other long term (current) drug therapy; Z79.4 Long term (current) use of insulin; Z79.82 Long term (current) use of aspirin | CPT/HCPCS: G0463 ==

== ENCOUNTER 2019-03-24 15:13 | Day surgery (SDC) | payer MEDICARE, OTHER | END 2019-03-24 22:57 | disposition home or self-care (01) | LOC: WOUND 15:13 | DX: E11.622 Type 2 diabetes mellitus with other skin ulcer (principal); L97.821 Non-pressure chronic ulcer of other part of left lower leg limited to breakdown of skin; I87.2 Venous insufficiency (chronic) (peripheral); I13.0 Hypertensive heart and chronic kidney disease with heart failure and stage 1 through stage 4 chronic kidney disease, or unspecified chronic kidney disease; E11.22 Type 2 diabetes mellitus with diabetic chronic kidney disease; N18.9 Chronic kidney disease, unspecified; G47.33 Obstructive sleep apnea (adult) (pediatric); E03.9 Hypothyroidism, unspecified; Z99.89 Dependence on other enabling machines and devices; Z79.4 Long term (current) use of insulin; Z79.899 Other long term (current) drug therapy | CPT/HCPCS: G0463 ==

== ENCOUNTER 2019-03-30 00:15 | Day surgery (SDC) | payer MEDICARE, OTHER | END 2019-03-30 22:45 | disposition home or self-care (01) | LOC: WOUND 00:15 | DX: E11.622 Type 2 diabetes mellitus with other skin ulcer (principal); L97.811 Non-pressure chronic ulcer of other part of right lower leg limited to breakdown of skin; I13.0 Hypertensive heart and chronic kidney disease with heart failure and stage 1 through stage 4 chronic kidney disease, or unspecified chronic kidney disease; E11.22 Type 2 diabetes mellitus with diabetic chronic kidney disease; N18.9 Chronic kidney disease, unspecified; I50.9 Heart failure, unspecified; E03.9 Hypothyroidism, unspecified; G47.33 Obstructive sleep apnea (adult) (pediatric); I87.2 Venous insufficiency (chronic) (peripheral); Z99.89 Dependence on other enabling machines and devices; Z79.899 Other long term (current) drug therapy; Z79.01 Long term (current) use of anticoagulants; Z79.4 Long term (current) use of insulin | CPT/HCPCS: G0463 ==

== ENCOUNTER 2019-04-21 14:55 | Day surgery (SDC) | payer MEDICARE, OTHER | END 2019-04-21 23:01 | disposition home or self-care (01) | LOC: WOUND 14:55 | DX: E11.622 Type 2 diabetes mellitus with other skin ulcer (principal); L97.811 Non-pressure chronic ulcer of other part of right lower leg limited to breakdown of skin; E11.40 Type 2 diabetes mellitus with diabetic neuropathy, unspecified; I87.2 Venous insufficiency (chronic) (peripheral); I13.2 Hypertensive heart and chronic kidney disease with heart failure and with stage 5 chronic kidney disease, or end stage renal disease; E11.22 Type 2 diabetes mellitus with diabetic chronic kidney disease; N18.6 End stage renal disease; I50.9 Heart failure, unspecified; E03.9 Hypothyroidism, unspecified; G47.33 Obstructive sleep apnea (adult) (pediatric); M10.9 Gout, unspecified; E78.5 Hyperlipidemia, unspecified; N25.81 Secondary hyperparathyroidism of renal origin; Z86.718 Personal history of other venous thrombosis and embolism; Z79.01 Long term (current) use of anticoagulants; Z79.4 Long term (current) use of insulin; Z79.82 Long term (current) use of aspirin; Z79.899 Other long term (current) drug therapy; Z99.89 Dependence on other enabling machines and devices | CPT/HCPCS: G0463 ==

== ENCOUNTER → 2019-11-02 | Outpatient (CLI) | payer MEDICARE, OTHER ==
[2019-11-02 17:41] LABS: Bilirubin, Urine Neg (Neg); Glucose Qualitative, Urine Neg (Neg); Ketones, Urine Neg (Neg); Leukocyte Esterase, Urine 2+ (Neg); Nitrite, Urine Neg (Neg); Protein, Urine Neg (Neg); Specific Gravity, Urine 1.015 (1.003-1.022); Urobilinogen, Urine NORM (Normal)
[2019-11-02 17:42] LABS: Appearance, Urine Clear (Clear); Blood, Urine Neg (Neg); Color, Urine Yellow (P-Yellow)
[2019-11-02 18:18] LABS: Bacteria Few /hpf; Mucus Light (0-Heavy); Red Blood Cells, Urine Rare /hpf (0-2); Squamous Epithelial Cells Rare /hpf (Few); White Blood Cells, Urine 0-2 /hpf (0-5)
== END | disposition home or self-care (01) ==
LOC: LAB 16:20 → LAB SHORT 16:20
PROVIDERS: Internal Medicine
DX: R35.0 Frequency of micturition (principal)
CPT/HCPCS: 81001; 87086

== ENCOUNTER 2020-03-01 06:19 | Day surgery (SDC) | payer MEDICARE, OTHER ==
[~2020-03-01] VITALS: Ht 180.3 cm; Wt 152.6 kg
[~2020-03-01 06:19] MED LIST changes: +Acetaminophen650 M1 PO; +EUTHYROX88 MCG PO; +FERSU300 PO; +NOVOLOG100 UNIT/3; +Percocet 5-3251 EACH PO; +TOUJEO SOL300 UNIT/2; +VICTOZA 2-0.6 MG/0.1 SC; +XARELTO15 MG PO
--- NOTE | 2020-03-01 08:50 | NUR ---
03/01/20 0850 Kristi Tracy MRSA, EBL ISOLATION PRECAUTIONS
== END 2020-03-01 11:41 | disposition home or self-care (01) ==
LOC: ORSCSDS 06:19
PROVIDERS: Otolaryngology
PROC: 09BU4ZZ Excision of Right Ethmoid Sinus, Percutaneous Endoscopic Approach (ICD-10-PCS; principal; 2020-03-01 07:30)
PROC: 8E09XBZ Computer Assisted Procedure of Head and Neck Region (ICD-10-PCS; principal; 2020-03-01 07:30)
DX: J32.8 Other chronic sinusitis (principal); J34.2 Deviated nasal septum; J34.3 Hypertrophy of nasal turbinates; I10 Essential (primary) hypertension; I25.10 Atherosclerotic heart disease of native coronary artery without angina pectoris; Z95.0 Presence of cardiac pacemaker; G47.33 Obstructive sleep apnea (adult) (pediatric); N18.30 Chronic kidney disease, stage 3 unspecified; E03.9 Hypothyroidism, unspecified; E66.01 Morbid (severe) obesity due to excess calories; Z68.42 Body mass index [BMI] 45.0-49.9, adult; Z79.01 Long term (current) use of anticoagulants; Z79.899 Other long term (current) drug therapy
CPT/HCPCS: 82947; 87070; 87075; 87077; 87186; 87205; A9270; J0171; J1100; J2001; J2250; J2370; J2405; J2704; J3010; J7120

== ENCOUNTER 2020-04-19 15:18 | Emergency (ER) | payer MEDICARE, OTHER ==
[~2020-04-19] VITALS: Ht 180.3 cm; Wt 136.1 kg
[2020-04-19] MEDS ORDERED: Vistaril25 MG PO (16:54)
[2020-04-19] MEDS ORDERED: CORTISONE60 GM TOP (16:54)
== END 2020-04-19 17:15 | disposition home or self-care (01) ==
LOC: ER 15:18
DX: L29.9 Pruritus, unspecified (principal); E78.5 Hyperlipidemia, unspecified; I13.0 Hypertensive heart and chronic kidney disease with heart failure and stage 1 through stage 4 chronic kidney disease, or unspecified chronic kidney disease; E11.22 Type 2 diabetes mellitus with diabetic chronic kidney disease; N18.30 Chronic kidney disease, stage 3 unspecified; I50.32 Chronic diastolic (congestive) heart failure; Z86.73 Personal history of transient ischemic attack (TIA), and cerebral infarction without residual deficits; Z95.0 Presence of cardiac pacemaker; Z79.01 Long term (current) use of anticoagulants; Z79.4 Long term (current) use of insulin; Z79.899 Other long term (current) drug therapy
CPT/HCPCS: 99282

== ENCOUNTER 2020-05-09 06:41 | Day surgery (SDC) | payer MEDICARE, OTHER ==
[~2020-05-09 06:41] MED LIST changes: +CORTISONE60 GM TOP; +Vistaril25 MG PO
== END 2020-05-09 22:43 | disposition home or self-care (01) ==
LOC: WOUND 06:41
DX: E11.621 Type 2 diabetes mellitus with foot ulcer (principal); L97.512 Non-pressure chronic ulcer of other part of right foot with fat layer exposed; E11.52 Type 2 diabetes mellitus with diabetic peripheral angiopathy with gangrene; I96 Gangrene, not elsewhere classified; I87.2 Venous insufficiency (chronic) (peripheral); E03.9 Hypothyroidism, unspecified; G47.33 Obstructive sleep apnea (adult) (pediatric); I13.0 Hypertensive heart and chronic kidney disease with heart failure and stage 1 through stage 4 chronic kidney disease, or unspecified chronic kidney disease; E11.22 Type 2 diabetes mellitus with diabetic chronic kidney disease; N18.6 End stage renal disease; I50.9 Heart failure, unspecified; E11.36 Type 2 diabetes mellitus with diabetic cataract; H26.9 Unspecified cataract; H74.90 Unspecified disorder of middle ear and mastoid, unspecified ear; M10.9 Gout, unspecified; E11.40 Type 2 diabetes mellitus with diabetic neuropathy, unspecified; Z86.718 Personal history of other venous thrombosis and embolism; Z79.01 Long term (current) use of anticoagulants; Z79.899 Other long term (current) drug therapy; Z79.4 Long term (current) use of insulin
CPT/HCPCS: G0463

== ENCOUNTER 2020-05-23 00:44 | Day surgery (SDC) | payer MEDICARE, OTHER | END 2020-05-23 22:39 | disposition home or self-care (01) | LOC: WOUND 00:44 | DX: E11.621 Type 2 diabetes mellitus with foot ulcer (principal); I87.2 Venous insufficiency (chronic) (peripheral); E11.22 Type 2 diabetes mellitus with diabetic chronic kidney disease; I12.9 Hypertensive chronic kidney disease with stage 1 through stage 4 chronic kidney disease, or unspecified chronic kidney disease; N18.9 Chronic kidney disease, unspecified; I11.0 Hypertensive heart disease with heart failure; I50.9 Heart failure, unspecified; E03.9 Hypothyroidism, unspecified; G47.33 Obstructive sleep apnea (adult) (pediatric); Z99.89 Dependence on other enabling machines and devices; Z79.4 Long term (current) use of insulin; Z86.718 Personal history of other venous thrombosis and embolism | CPT/HCPCS: G0463 ==

== ENCOUNTER 2020-05-30 00:28 | Day surgery (SDC) | payer MEDICARE, OTHER | END 2020-05-30 22:45 | disposition home or self-care (01) | LOC: WOUND 00:28 | DX: E11.621 Type 2 diabetes mellitus with foot ulcer (principal); L97.511 Non-pressure chronic ulcer of other part of right foot limited to breakdown of skin; I87.2 Venous insufficiency (chronic) (peripheral); I13.0 Hypertensive heart and chronic kidney disease with heart failure and stage 1 through stage 4 chronic kidney disease, or unspecified chronic kidney disease; E11.22 Type 2 diabetes mellitus with diabetic chronic kidney disease; N18.9 Chronic kidney disease, unspecified; I50.9 Heart failure, unspecified; E03.9 Hypothyroidism, unspecified; G47.33 Obstructive sleep apnea (adult) (pediatric); Z79.4 Long term (current) use of insulin; Z79.899 Other long term (current) drug therapy; Z86.718 Personal history of other venous thrombosis and embolism; Z79.01 Long term (current) use of anticoagulants | CPT/HCPCS: A9270 ==

== ENCOUNTER 2020-06-05 00:31 | Day surgery (SDC) | payer MEDICARE, OTHER | END 2020-06-05 23:09 | disposition home or self-care (01) | LOC: WOUND 00:31 | DX: E11.621 Type 2 diabetes mellitus with foot ulcer (principal); L97.512 Non-pressure chronic ulcer of other part of right foot with fat layer exposed; I87.2 Venous insufficiency (chronic) (peripheral); I13.0 Hypertensive heart and chronic kidney disease with heart failure and stage 1 through stage 4 chronic kidney disease, or unspecified chronic kidney disease; E11.22 Type 2 diabetes mellitus with diabetic chronic kidney disease; N18.9 Chronic kidney disease, unspecified; I50.9 Heart failure, unspecified; E03.9 Hypothyroidism, unspecified; G47.33 Obstructive sleep apnea (adult) (pediatric); Z79.4 Long term (current) use of insulin; Z86.718 Personal history of other venous thrombosis and embolism; Z79.01 Long term (current) use of anticoagulants; Z79.899 Other long term (current) drug therapy ==

== ENCOUNTER 2020-06-14 00:37 | Day surgery (SDC) | payer MEDICARE, OTHER | END 2020-06-14 23:20 | disposition home or self-care (01) | LOC: WOUND 00:37 | DX: E11.621 Type 2 diabetes mellitus with foot ulcer (principal); L97.512 Non-pressure chronic ulcer of other part of right foot with fat layer exposed; I87.2 Venous insufficiency (chronic) (peripheral); I13.0 Hypertensive heart and chronic kidney disease with heart failure and stage 1 through stage 4 chronic kidney disease, or unspecified chronic kidney disease; E11.22 Type 2 diabetes mellitus with diabetic chronic kidney disease; N18.9 Chronic kidney disease, unspecified; I50.9 Heart failure, unspecified; E03.9 Hypothyroidism, unspecified; G47.33 Obstructive sleep apnea (adult) (pediatric); Z79.4 Long term (current) use of insulin; Z86.718 Personal history of other venous thrombosis and embolism; Z79.01 Long term (current) use of anticoagulants; Z79.899 Other long term (current) drug therapy | CPT/HCPCS: 36415; 87081; G0463 ==

== ENCOUNTER → 2020-06-14 | Outpatient (CLI) | payer MEDICARE, OTHER | END | disposition home or self-care (01) | LOC: LAB EV 14:05 → LAB SHORT 14:05 | DX: L98.499 Non-pressure chronic ulcer of skin of other sites with unspecified severity (principal) | CPT/HCPCS: 36415; 87081 ==

== ENCOUNTER 2020-06-21 00:25 | Day surgery (SDC) | payer MEDICARE, OTHER | END 2020-06-21 23:45 | disposition home or self-care (01) | LOC: WOUND 00:25 | DX: E11.621 Type 2 diabetes mellitus with foot ulcer (principal); L97.518 Non-pressure chronic ulcer of other part of right foot with other specified severity; I13.0 Hypertensive heart and chronic kidney disease with heart failure and stage 1 through stage 4 chronic kidney disease, or unspecified chronic kidney disease; E11.22 Type 2 diabetes mellitus with diabetic chronic kidney disease; N18.9 Chronic kidney disease, unspecified; I50.9 Heart failure, unspecified; G47.33 Obstructive sleep apnea (adult) (pediatric); Z86.718 Personal history of other venous thrombosis and embolism | CPT/HCPCS: G0463 ==

== ENCOUNTER → 2020-07-03 | Outpatient (CLI) | payer MEDICARE, OTHER ==
[2020-07-03 15:57] LABS: BASOPHILS ABSOLUTE AUTO 0.05 K/mm3 (0.00-0.23); BASOPHILS PERCENT AUTO 1 % (0-2); EOSINOPHILS ABSOLUTE AUTO 0.15 K/mm3 (0.00-0.68); EOSINOPHILS PERCENT AUTO 2 % (0-6); Hematocrit 40.8 % (37.0-53.0); Hemoglobin 12.7 g/dL (13.5-17.5); IMMATURE GRAN ABSOLUTE AUTO 0.03 K/mm3 (0.00-0.10); IMMATURE GRAN PERCENT AUTO 0 % (0-1); LYMPHOCYTES ABSOLUTE AUTO 1.02 K/mm3 (0.84-5.20); LYMPHOCYTES PERCENT AUTO 12 % (21-46); MONOCYTES ABSOLUTE AUTO 0.61 K/mm3 (0.16-1.47); MONOCYTES PERCENT AUTO 7 % (4-13); Mean Corpuscular HGB 28.8 pg (26.0-34.0); Mean Corpuscular HGB Conc 31.1 g/dL (31.5-36.5); Mean Corpuscular Volume 93 fL (80-100); NEUTROPHILS ABSOLUTE AUTO 6.66 K/mm3 (1.96-9.15); NEUTROPHILS PERCENT AUTO 78 % (41-73); Platelet Count 199 K/mm3 (150-400); RDW Coefficient Variation 16.1 % (11.7-14.2); RDW Standard Deviation 54.7 fL (35.1-46.3); Red Blood Cell Count 4.41 M/mm3 (4.30-5.90); White Blood Cell Count 8.52 K/mm3 (4.00-11.30)
== END | disposition home or self-care (01) ==
LOC: LAB SHORT 14:20 → LAB 14:20
PROVIDERS: Family Medicine
DX: L98.499 Non-pressure chronic ulcer of skin of other sites with unspecified severity (principal)
CPT/HCPCS: 36415; 85025; 86140; 87040

== ENCOUNTER 2020-12-19 14:25 | Inpatient (IN) | payer MEDICARE, OTHER ==
[~2020-12-19] VITALS: Ht 180.3 cm; Wt 152.0 kg
[~2020-12-19 14:25] MED LIST changes: +ZYLOPRIM300 M1 PO
[2020-12-19 15:31] LABS: BASOPHILS ABSOLUTE AUTO 0.04 K/mm3 (0.00-0.23); BASOPHILS PERCENT AUTO 0 % (0-2); EOSINOPHILS ABSOLUTE AUTO 0.01 K/mm3 (0.00-0.68); EOSINOPHILS PERCENT AUTO 0 % (0-6); Hematocrit 38.3 % (37.0-53.0); Hemoglobin 12.5 g/dL (13.5-17.5); IMMATURE GRAN ABSOLUTE AUTO 0.17 K/mm3 (0.00-0.10); IMMATURE GRAN PERCENT AUTO 1 % (0-1); LYMPHOCYTES ABSOLUTE AUTO 0.87 K/mm3 (0.84-5.20); LYMPHOCYTES PERCENT AUTO 4 % (21-46); MONOCYTES ABSOLUTE AUTO 1.68 K/mm3 (0.16-1.47); MONOCYTES PERCENT AUTO 8 % (4-13); Mean Corpuscular HGB 29.6 pg (26.0-34.0); Mean Corpuscular HGB Conc 32.6 g/dL (31.5-36.5); Mean Corpuscular Volume 91 fL (80-100); Mean Platelet Volume 9.6 fL (9.1-12.4); NEUTROPHILS ABSOLUTE AUTO 17.79 K/mm3 (1.96-9.15); NEUTROPHILS PERCENT AUTO 87 % (41-73); Platelet Count 262 K/mm3 (150-400); RDW Coefficient Variation 14.4 % (11.7-14.2); RDW Standard Deviation 47.1 fL (35.1-46.3); Red Blood Cell Count 4.23 M/mm3 (4.30-5.90); White Blood Cell Count 20.56 K/mm3 (4.00-11.30)
[2020-12-19 16:07] LABS: Magnesium, Blood 2.3 mg/dL (1.6-2.4); Thyroid Stimulating Hormone 2.23 uIU/mL (0.360-4.800); Troponin I 0.112 ng/mL (0.000-0.040)
[2020-12-19 16:43] LABS: Source, Urine Clean Catch
[2020-12-19 17:14] LABS: Appearance, Urine Hazy (Clear); Bilirubin, Urine Neg (Neg); Blood, Urine 1+ (Neg); Color, Urine Yellow (P-Yellow); Glucose Qualitative, Urine Neg (Neg); Ketones, Urine Neg (Neg); Leukocyte Esterase, Urine 3+ (Neg); Nitrite, Urine Neg (Neg); Protein, Urine 1+ (Neg); Specific Gravity, Urine 1.015 (1.003-1.022); Urobilinogen, Urine NORM (Normal)
[2020-12-19 17:35] LABS: Bacteria Many /hpf; Red Blood Cells, Urine 0-2 /hpf (0-2); Squamous Epithelial Cells Rare /hpf (Few); White Blood Cells, Urine 25-50 /hpf (0-5)
[2020-12-19 21:38] LABS: Creatinine, Blood 2.46 mg/dL (0.60-1.20); Uric Acid, Blood 10.9 mg/dL (3.5-7.2)
[2020-12-19] MEDS ORDERED: BUME2 PO (22:09)
[2020-12-19] MEDS ORDERED: TRIA15CR3 TOP (22:10)
[2020-12-19] MEDS ORDERED: TOUJEO SOL300 UNIT/2 SC (22:19)
[2020-12-19] MEDS ORDERED: OZEMPIC1 MG/0.72 SC (22:21)
[2020-12-19] MEDS ORDERED: LEVSOD88 PO (22:23)
[2020-12-19] MEDS ORDERED: NYAMYC15 G1 TOP (22:23)
[2020-12-19] MEDS ORDERED: TRAM50 PO (22:24)
--- NOTE | 2020-12-20 00:02 | NUR ---
ADMITTED 81 YR OLD MALE FROM ED TO FLOOR WITH DX OF UTI. BARIATRIC PT WITH CO MORBIDITIES INCLUDING DM, CHF AND OBSTRUCTIVE SLEEP APNEA. ALERT AND ORIENTED. PLACED ON ISOLATION UNTIL TESTS RETURN. ORIENTED TO USE OF CALL LIGHT, CALL LIGHT IN REACH
--- NOTE | 2020-12-20 03:12 | NUR ---
CROSS TIE TURNER SUMMARY ADMITTED TO FLOOR EALIER IN THE SHIFT WITH UTI. ANTIBIOTICS ADMININSTERED, SEE MAR FOR DETAILS. HAS BEEN RESETING AT INTERVALS WITH CPAP AND ROOM AIR. HOB ELEVATED FOR COMFORT. CALL LIGHT IN REACH. ISOLATION PRECATIONS MAINTAINED
[2020-12-20 05:15] LABS: BASOPHILS ABSOLUTE AUTO 0.03 K/mm3 (0.00-0.23); BASOPHILS PERCENT AUTO 0 % (0-2); EOSINOPHILS PERCENT AUTO 0 % (0-6); Hematocrit 33.6 % (37.0-53.0); IMMATURE GRAN ABSOLUTE AUTO 0.13 K/mm3 (0.00-0.10); IMMATURE GRAN PERCENT AUTO 1 % (0-1); LYMPHOCYTES ABSOLUTE AUTO 0.76 K/mm3 (0.84-5.20); LYMPHOCYTES PERCENT AUTO 4 % (21-46); MONOCYTES ABSOLUTE AUTO 0.68 K/mm3 (0.16-1.47); MONOCYTES PERCENT AUTO 4 % (4-13); Mean Corpuscular HGB 29.6 pg (26.0-34.0); Mean Corpuscular HGB Conc 32.7 g/dL (31.5-36.5); Mean Corpuscular Volume 91 fL (80-100); Mean Platelet Volume 9.7 fL (9.1-12.4); NEUTROPHILS ABSOLUTE AUTO 16.19 K/mm3 (1.96-9.15); NEUTROPHILS PERCENT AUTO 91 % (41-73); Platelet Count 244 K/mm3 (150-400); RDW Coefficient Variation 14.3 % (11.7-14.2); RDW Standard Deviation 47.6 fL (35.1-46.3); Red Blood Cell Count 3.71 M/mm3 (4.30-5.90); White Blood Cell Count 17.79 K/mm3 (4.00-11.30)
[2020-12-20 05:41] LABS: Alanine Aminotransfer (ALT/SGP 32 U/L (12-78); Albumin, Blood 2.1 g/dL (3.4-5.0); Albumin/Globulin Ratio 0.5 (0.8-1.8); Alk Phos 129 U/L (50-136); Anion Gap 8 mmol/L (6-16); Aspartate Aminotrans (AST/SGOT 23 U/L (12-37); Bilirubin, Total 1.4 mg/dL (0.1-1.0); Blood Urea Nitrogen 57 mg/dL (8-24); Bun/Creatinine Ratio 21.6 (12.0-20.0); CO2, Blood 26 mmol/L (21-32); Calcium, Blood 8.6 mg/dL (8.5-10.1); Chloride, Blood 102 mmol/L (98-108); Creatinine, Blood 2.64 mg/dL (0.60-1.20); Globulin, Blood 4.5 g/dL (2.2-4.0); Glomerular Filtration Rate 23 (60-); Glucose, Blood 197 mg/dL (70-99); Potassium, Blood 5.1 mmol/L (3.5-5.5); Sodium, Blood 136 mmol/L (136-145); Total Protein, Blood 6.6 g/dL (6.4-8.2); Vancomycin, Random 18.1 ug/mL
--- NOTE | 2020-12-20 06:24 | NUR ---
MESSAGE LEFT ON ANS MACHINE FOR [facility] RE SEPTIC KNEE PER ORDER FROM DR HERZOG
--- NOTE | 2020-12-20 14:35 | NUR ---
PT HAS AT BEDSIDE, EXPERIENCING VISUAL/H. STATES NOT AT BASILINE. DR BRAUN INFORMED. NO NEW ORDERS PLACED THUS FAR. PT REMAINS COOPERATIVE.
--- NOTE | 2020-12-20 14:46 | NUR ---
ASSUMED CARE OF PT FROM DINORAH GLEZ RN AT THIS TIME.
--- NOTE | 2020-12-20 18:30 | NUR ---
SHIFT SUMMARY PT A/O BUT IS EXPERIENCING PERIODS OF CONFUSION AND HALLUCINATIONS. PHYSICIAN SAW AND SPOKE WITH THE PT AND THEORIZES THAT IT IS DUE TO THE INFECTION AND POSSIBLY MEDICATIONS. PT IS PLEASANT AND COOPERATIVE WITH CARE. PT REQUESTING MORE EDUCATION ON CARING FOR HIS DIABETES AND WOULD LIKE TO HAVE HIS PERSONAL METER TESTED. IS ROOM AND HELPS TO REORIENT THE PATIENT OFTEN. VSS. WILL REPORT TO CHRISTINA RN.
--- NOTE | 2020-12-20 20:52 | NUR ---
AWAKE. VOICED SEEING LIGHTS AND DIFFERENT IMAGES ON CEILING. WAS PRESENT AND SAID HE HAD BEEN SEEING THAT FOR THE DAY, AND HAED BEEN SEEING THINGS AT HOME PRIOR TO ADMISSION. DISCUSSED SAID IMAGES WITH PT. ENCOURAGED TO STAY IN BED AND USE CALL LIGHT TO PREVENT FALLS. CALL LIGHT IN REACH.
--- NOTE | 2020-12-20 22:27 | NUR ---
AWAKE. REFUSED IV PLACEMENT EARLIER. NURSE ASKED PT IF HE WOULD TAKE HIS MEDS, HE REFUSED. BEGAN TO YELL. DEMANDED THAT THE STAFF "LEAVE (HIS) ROOM". REFUSED TO ALLOW NURSE TO DO AN ASSESSMENT. UNSTEADY ON FEET. TRIED SEVERAL TIMES TO GET OUT OF BED, CONFRONTED BY STAFF FOR SAFETY REASONS. AGREED TO REMAIN SITTING ON BED AND NOT TO TRY TO GET OUT OF BED. CHARGE NURSE AWARE. WILL CONTINUE TO MONITOR. CALL LIGHT IN REACH
--- NOTE | 2020-12-21 00:48 | NUR ---
LOCKED SELF IN THE BATHROOM. NURSE OPENED DOOR WITH BALLESTEROS, PT STATED HE WATCHED DOOR OPEN, "I DIDNT WANT YOU TO COME IN". NURSE ASSESSED PT, PT SAFE SITTING ON SHOWER CHAIR. SAFETY EMPHASIZED. EVENTUALLY WAS ACCOMPANIED BACK TO BED. CURRENTLY TALKING TO ON PHONE. CALL LIGHT IN REACH
--- NOTE | 2020-12-21 01:38 | NUR ---
QUIETLY SITTING ON BED, WRINGING HANDS. NO NOTED ACUTE DISTRESS. CALL LIGHT IN REACH
[2020-12-21 05:09] LABS: BASOPHILS ABSOLUTE AUTO 0.01 K/mm3 (0.00-0.23); BASOPHILS PERCENT AUTO 0 % (0-2); EOSINOPHILS PERCENT AUTO 0 % (0-6); Hematocrit 32.9 % (37.0-53.0); Hemoglobin 10.7 g/dL (13.5-17.5); IMMATURE GRAN ABSOLUTE AUTO 0.14 K/mm3 (0.00-0.10); IMMATURE GRAN PERCENT AUTO 1 % (0-1); LYMPHOCYTES ABSOLUTE AUTO 0.45 K/mm3 (0.84-5.20); LYMPHOCYTES PERCENT AUTO 3 % (21-46); MONOCYTES ABSOLUTE AUTO 0.76 K/mm3 (0.16-1.47); MONOCYTES PERCENT AUTO 5 % (4-13); Mean Corpuscular HGB 29.3 pg (26.0-34.0); Mean Corpuscular HGB Conc 32.5 g/dL (31.5-36.5); Mean Corpuscular Volume 90 fL (80-100); Mean Platelet Volume 10.1 fL (9.1-12.4); NEUTROPHILS ABSOLUTE AUTO 15.26 K/mm3 (1.96-9.15); NEUTROPHILS PERCENT AUTO 92 % (41-73); Platelet Count 269 K/mm3 (150-400); RDW Coefficient Variation 13.8 % (11.7-14.2); Red Blood Cell Count 3.65 M/mm3 (4.30-5.90); White Blood Cell Count 16.62 K/mm3 (4.00-11.30)
--- NOTE | 2020-12-21 05:24 | NUR ---
YARD PERSON SUMMARY AWAKE AT INTERVALS, VERY NONCOMPLIANT WITH TREATMENT THIS PAST SHIFT. AT SHIFT COMMENCE VOICED CONCERNS OF PT SEEING THINGS THAT WERE NOT THERE - CEILING LIGHTING. LATER IN SHIFT, REFUSED MEDS AND TREATMENTS, VOICED FELT CONSPIRACIES RE STAFF NOT BEING TRUSTWORTHY, EVEN LOCKING SELF IN THE BATHROOM TO AVOID STAFF. MULTIPLE ATTEMPTS TO REDIRECT, CALM HIM DOWN. LATER, THIS AM, WAS RECEPTIVE TO LET LABS BE DRAWN. REMAINS IN ROOM, QUIET. SPOKE WITH NURSE DURING THE SHIFT, VOICED CONCERNS BUT THAT SHE WOULD BE BACK LATER TODAY. CALL LIGHT IN REACH. SAFETY EMPHASIZED. ISOLATION MAINTAINED
[2020-12-21 05:43] LABS: Alanine Aminotransfer (ALT/SGP 43 U/L (12-78); Albumin, Blood 2.1 g/dL (3.4-5.0); Albumin/Globulin Ratio 0.5 (0.8-1.8); Alk Phos 122 U/L (50-136); Anion Gap 11 mmol/L (6-16); Aspartate Aminotrans (AST/SGOT 46 U/L (12-37); Bilirubin, Total 0.6 mg/dL (0.1-1.0); Blood Urea Nitrogen 72 mg/dL (8-24); Bun/Creatinine Ratio 28.6 (12.0-20.0); CO2, Blood 22 mmol/L (21-32); Calcium, Blood 8.9 mg/dL (8.5-10.1); Chloride, Blood 102 mmol/L (98-108); Creatinine, Blood 2.52 mg/dL (0.60-1.20); Globulin, Blood 4.5 g/dL (2.2-4.0); Glomerular Filtration Rate 24 (60-); Glucose, Blood 289 mg/dL (70-99); Potassium, Blood 4.1 mmol/L (3.5-5.5); Sodium, Blood 135 mmol/L (136-145); Total Protein, Blood 6.6 g/dL (6.4-8.2)
[2020-12-21 06:00] LABS: C-REACTIVE PROTEIN, EXT RANGE >19.000 mg/dL (0.000-0.300)
[2020-12-21 12:42] LABS: Color, Synovial Fluid Yellow (None-P Yel)
[2020-12-21 12:43] LABS: Appearance, Synovial Fluid Cloudy (Clear)
[2020-12-21 12:44] LABS: BODY FLUID RBC 0.004 M/mm3 (0-0); RBC Count, Synovial Fluid 4000 /mm3 (0-0); WBC Count, Synovial Fluid 15860 /mm3 (0-180)
[2020-12-21 12:47] LABS: Monocytes/Macrophages, Synovia 3 % (0-65); Neutrophils, Synovial Fluid 97 % (0-24)
[2020-12-21 13:01] LABS: Glucose, Body Fluid 287 mg/dL
[2020-12-21 16:22] LABS: Body Fluid Crystals NEG (NEGATIVE)
--- NOTE | 2020-12-21 16:40 | NUR ---
SHIFT SUMMARY PT A&Ox1 THIS SHIFT, FREQUENTLY CONFUSED AND VISUAL HALLUCINATIONS OCCURING AT TIMES. & SON IN ROOM AND ABLE TO REORIENT PT OFTEN. PT IS PLEASANT T/O SHIFT AND COMPLIANT WITH ALL CARE. BELLAMY CONSULTED TODAY, ADJUSTMENTS MADE TO MEDS TO HELP REMOVE FLUID. PT DENIES ANY DISTRESS T/O SHIFT, VSS, GOOD ORAL INTAKE. FLUID RESTRICTION IMPLEMENTED. PT IS CURRENTLY RESTING IN BED c CALL LIGHT WITHIN REACH. BED ALARM ON. FAMILY @ BEDSIDE.
--- NOTE | 2020-12-21 23:48 | NUR ---
Pt called stating Pt. called worried no one was taking care of him and he was being forced to lived in a garage, and staff were trying to poke him but he refused. Patients was reasssured her was being well cared for she stated he is just so confused thank you for helping him.ended call
[2020-12-22 04:54] LABS: BASOPHILS ABSOLUTE AUTO 0.02 K/mm3 (0.00-0.23); BASOPHILS PERCENT AUTO 0 % (0-2); EOSINOPHILS PERCENT AUTO 0 % (0-6); Hemoglobin 12.1 g/dL (13.5-17.5); IMMATURE GRAN ABSOLUTE AUTO 0.14 K/mm3 (0.00-0.10); IMMATURE GRAN PERCENT AUTO 1 % (0-1); LYMPHOCYTES ABSOLUTE AUTO 0.91 K/mm3 (0.84-5.20); LYMPHOCYTES PERCENT AUTO 6 % (21-46); MONOCYTES ABSOLUTE AUTO 1.11 K/mm3 (0.16-1.47); MONOCYTES PERCENT AUTO 7 % (4-13); Mean Corpuscular HGB 29.4 pg (26.0-34.0); Mean Corpuscular HGB Conc 32.7 g/dL (31.5-36.5); Mean Corpuscular Volume 90 fL (80-100); Mean Platelet Volume 10.2 fL (9.1-12.4); NEUTROPHILS ABSOLUTE AUTO 13.98 K/mm3 (1.96-9.15); NEUTROPHILS PERCENT AUTO 87 % (41-73); Platelet Count 260 K/mm3 (150-400); RDW Coefficient Variation 14.1 % (11.7-14.2); RDW Standard Deviation 45.9 fL (35.1-46.3); Red Blood Cell Count 4.11 M/mm3 (4.30-5.90); White Blood Cell Count 16.16 K/mm3 (4.00-11.30)
--- NOTE | 2020-12-22 05:01 | NUR ---
cHANGE DRESSING TO IV SITE PT PULLED DRESSING OFF SITE ACCESS FLUSHED AND REDRESSED PLACED STOCKING OVER IV SITE
[2020-12-22 05:35] LABS: Albumin, Blood 2.3 g/dL (3.4-5.0); Albumin/Globulin Ratio 0.5 (0.8-1.8); Bilirubin, Total 0.4 mg/dL (0.1-1.0); Bun/Creatinine Ratio 34.1 (12.0-20.0); Calcium, Blood 9.2 mg/dL (8.5-10.1); Creatinine, Blood 2.29 mg/dL (0.60-1.20); Globulin, Blood 4.6 g/dL (2.2-4.0); Magnesium, Blood 2.8 mg/dL (1.6-2.4); Phosphorus, Blood 3.9 mg/dL (2.5-4.9); Potassium, Blood 4.4 mmol/L (3.5-5.5); Total Protein, Blood 6.9 g/dL (6.4-8.2); Uric Acid, Blood 11.3 mg/dL (3.5-7.2)
--- NOTE | 2020-12-22 06:08 | NUR ---
PT WAS AWAKE THROUGHOUT THE SHIFT CONFUSED STATED HE WAS LIVING IN A GARAGE AND STAFF WERE OUT TO GET HIM.PT WAS TALKITIVE AND EASILY REDIRECTABLE. PT SELF AMBULATES WITH FWW TO BATHROOM WITH STANDBY ASSIST. PT SLEPT FROM 0135 TO 0445 WITH CPAP ON RT CHECKED PLACEMENT STATING @96%. PT DECLINED CARE AND INSULIN THIS SHIFT STATED STAFF WERE TRYING TO POKE HIM WITH POISONS. PT LATER WANDERED INTO THE BARBOZA WITH FWW AFTER LAB [facility] AM LABS DEMANDING TO KNOW WHO SAID HE HAD TO BE POKED. PT WAS EASILY REDIRECTED TO ROOM AND ALLOWED THIS INTERNATIONAL BANKER TO CHANGE IV DRESSING PT HAD PULLED OFF. PT IS CURRENTLY CALM SITTING IN BED WATCHING TV WITH CALL JONES WITHIN REACH.
[2020-12-22 08:46] LABS: Vancomycin, Trough 26.1 ug/mL (5.0-10.0)
--- NOTE | 2020-12-22 18:37 | NUR ---
SHIFT SUMMARY NO ACUTE CHANGES NOTED TO PT THIS SHIFT. PT AAO TO SELF AND FAMILY, PLEASANTLY CONFUSED, REDIRECTABLE. PT CAN BE IRRITABLE AT TIMES. PT WAS REPORTED TO REFUSED THERAPY THIS SHIFT REPORTED BY PT STAFF. NO C/O PAIN OR ANY DISCOMFORT THIS SHIFT. PT's FAMILY AT BEDSIDE THIS SHIFT. BED AT LOWEST POSITION. CALL LIGHT WITHIN REACH.
--- NOTE | 2020-12-23 00:19 | NUR ---
ORTHRO PROVIDER AT BEDSIDE @2034. PROVIDER UNWRAPPED PT LE DRESSING AND ACCESSED R KNEE PAIN AND LOWER EXTREMITY EDEMA. PROVIDER REPORTED SURGERY WAS NOT NESSCESSARY AND NO SIGNS OF INFECTION. INSTRUCTED LOWER EXTREMITIES TO REWRAPPED IN 4" ANGELA BANDAGES STARTING AFTER METATARSALS TO ANKLE THEN APPPLY LARGER ANGELA WRAPPING FROM ANKLE TO KNEE. ADJUST ACCORDING TO COMFORT AND ASSESS FOR DISTAL VENOUS RETURN. MOISTURIZER APPLIED PRIOR.PEDAL PULSES PRESENT GOOD CAPILLARY RETURN.PT CAN FEEL AND MOVE TOES.
--- NOTE | 2020-12-23 05:26 | NUR ---
shift summary: pt was calm and cooperative. Pt slept 6.5 hrs this shift. pt seemed lesss confused and was able to follow directions with family present. . pt is 1p assist/standby but ambulates frequently on own oob to void and uses bedside urinal. pt declined 0000 dose of insulin stating i will take it in the morning like i do at home. pt was a&ox 3 with family present and spoke briefly with ortho provider for surgery consult for R knee provider does not recommend surgery at this time.pt LE wrapped per providers instructions. pedal pulses present w/ good cap refill <3 sec. call light within reach hob @30 pt used CPAP through the night and uses eye mask to help sleep pt intermittenly snores non obstructed no ss/ssx of distress.
[2020-12-23 05:41] LABS: BASOPHILS ABSOLUTE AUTO 0.02 K/mm3 (0.00-0.23); BASOPHILS PERCENT AUTO 0 % (0-2); EOSINOPHILS ABSOLUTE AUTO 0.06 K/mm3 (0.00-0.68); EOSINOPHILS PERCENT AUTO 1 % (0-6); Hemoglobin 12.1 g/dL (13.5-17.5); IMMATURE GRAN ABSOLUTE AUTO 0.08 K/mm3 (0.00-0.10); IMMATURE GRAN PERCENT AUTO 1 % (0-1); LYMPHOCYTES ABSOLUTE AUTO 1.15 K/mm3 (0.84-5.20); LYMPHOCYTES PERCENT AUTO 12 % (21-46); MONOCYTES ABSOLUTE AUTO 1.04 K/mm3 (0.16-1.47); MONOCYTES PERCENT AUTO 11 % (4-13); Mean Corpuscular HGB 29.1 pg (26.0-34.0); Mean Corpuscular HGB Conc 32.7 g/dL (31.5-36.5); Mean Corpuscular Volume 89 fL (80-100); Mean Platelet Volume 10.1 fL (9.1-12.4); NEUTROPHILS ABSOLUTE AUTO 7.57 K/mm3 (1.96-9.15); NEUTROPHILS PERCENT AUTO 76 % (41-73); Platelet Count 264 K/mm3 (150-400); RDW Standard Deviation 45.8 fL (35.1-46.3); Red Blood Cell Count 4.16 M/mm3 (4.30-5.90); White Blood Cell Count 9.92 K/mm3 (4.00-11.30)
[2020-12-23 06:04] LABS: Albumin, Blood 2.4 g/dL (3.4-5.0); Anion Gap 8 mmol/L (6-16); Blood Urea Nitrogen 78 mg/dL (8-24); Bun/Creatinine Ratio 35.5 (12.0-20.0); CO2, Blood 28 mmol/L (21-32); Calcium, Blood 8.9 mg/dL (8.5-10.1); Chloride, Blood 102 mmol/L (98-108); Glomerular Filtration Rate 29 (60-); Glucose, Blood 176 mg/dL (70-99); Magnesium, Blood 2.7 mg/dL (1.6-2.4); Phosphorus, Blood 4.3 mg/dL (2.5-4.9); Potassium, Blood 3.4 mmol/L (3.5-5.5); Sodium, Blood 138 mmol/L (136-145)
--- NOTE | 2020-12-23 18:00 | NUR ---
SHIFT SUMMARY PT AAO TO SELF AND FAMILY, PLEASANTLY CONFUSED, REDIRECTABLE. FORGETFUL AT TIMES. NO C/O PAIN OR ANY DISCOMFORT. NO C/O CP, SOB, OR N&V. NO ACUTE CHANGES NOTED THIS SHIFT. DR. HIGGINS CONSULT WITH PT THIS SHIFT. NO FURTHER ORDERS NOTED FROM PROVIDER. PT AMBULATES TO THE BATHROOM 1P SBA WITH FWW. BED AT LOWEST POSITION. CALL LIGHT WITHIN REACH.
--- NOTE | 2020-12-24 01:23 | NUR ---
PT DECLINED 0000 HRS DOSE INSULIN CBG 190 PT STATES "I DONT TAKE INSULIN AT NIGHT AT HOME I WILL TAKE THE MORNING DOSE"
--- NOTE | 2020-12-24 04:55 | NUR ---
SHIFT SUMMMARY: PT WAS W/ AT BEDSIDE AT BEGINING OF SHIFT. PT IS CALM COOPERATIVE, INTERACTING APPROPERIATELY. PT STATED HE DID NOT WANT 0000 INSULIN. PT A&OX3 W/ LE WRAPPED FEET ELEVATED OOB W/BRP IGNORES 1P ASSIST/STANDBY REDIRECTED TO USE CALL LIGHT, PT AGREEABLE. PT IN BED W/CPAP AND MASK ON SLEPT APPROX. 6.25HRS THIS SHIFT. CALL LIGHT IN REACH HOB@30 AND SIDERAILS UP.
[2020-12-24 08:31] LABS: BASOPHILS ABSOLUTE AUTO 0.03 K/mm3 (0.00-0.23); BASOPHILS PERCENT AUTO 0 % (0-2); EOSINOPHILS ABSOLUTE AUTO 0.17 K/mm3 (0.00-0.68); EOSINOPHILS PERCENT AUTO 2 % (0-6); Hematocrit 39.2 % (37.0-53.0); Hemoglobin 12.8 g/dL (13.5-17.5); IMMATURE GRAN ABSOLUTE AUTO 0.13 K/mm3 (0.00-0.10); IMMATURE GRAN PERCENT AUTO 1 % (0-1); LYMPHOCYTES ABSOLUTE AUTO 1.17 K/mm3 (0.84-5.20); LYMPHOCYTES PERCENT AUTO 11 % (21-46); MONOCYTES ABSOLUTE AUTO 0.98 K/mm3 (0.16-1.47); MONOCYTES PERCENT AUTO 9 % (4-13); Mean Corpuscular HGB 29.2 pg (26.0-34.0); Mean Corpuscular HGB Conc 32.7 g/dL (31.5-36.5); Mean Corpuscular Volume 89 fL (80-100); NEUTROPHILS ABSOLUTE AUTO 8.38 K/mm3 (1.96-9.15); NEUTROPHILS PERCENT AUTO 77 % (41-73); Platelet Count 254 K/mm3 (150-400); RDW Coefficient Variation 14.3 % (11.7-14.2); RDW Standard Deviation 46.1 fL (35.1-46.3); Red Blood Cell Count 4.39 M/mm3 (4.30-5.90); White Blood Cell Count 10.86 K/mm3 (4.00-11.30)
[2020-12-24 08:47] LABS: Albumin, Blood 2.5 g/dL (3.4-5.0); Anion Gap 9 mmol/L (6-16); Blood Urea Nitrogen 85 mg/dL (8-24); Bun/Creatinine Ratio 36.5 (12.0-20.0); CO2, Blood 26 mmol/L (21-32); Calcium, Blood 8.5 mg/dL (8.5-10.1); Chloride, Blood 102 mmol/L (98-108); Creatinine, Blood 2.33 mg/dL (0.60-1.20); Glomerular Filtration Rate 27 (60-); Glucose, Blood 158 mg/dL (70-99); Phosphorus, Blood 4.7 mg/dL (2.5-4.9); Potassium, Blood 3.4 mmol/L (3.5-5.5); Sodium, Blood 137 mmol/L (136-145)
[2020-12-24 10:13] LABS: Vancomycin, Trough 28.3 ug/mL (5.0-10.0)
--- NOTE | 2020-12-24 12:18 | NUR ---
ADMIT: 12/19/20 DISCHARGE: 12/24/20 DX: UTI CC: [email or web address] BON CALL: [phone] RESIDENCE: home with CAREGIVER: self and DX: DM, hypothyroidism, DVT, see list DME: DM supplies, back brace CCM: none HOME HEALTH: none SUMMARY: 12/24/20- per chart review with Dr. Dhaliwal, pt is stable for d/c. Met with pt who reports that prior to coming into the hospital, he was independent at home with his helping care for him.Pt states that he lives in a single story home with 2 stairs to get into the home. Their home has working utilities. helps with his medications and his pharmacy [facility]. Pt reports that he still drives but his will come to get him. He has no DME needs. Appt made for hospital f/u with Dr. Haq 12/[address] Hicks 12/25 at 2pm. -liliana
[2020-12-24] MEDS ORDERED: NORVASC5 MG PO (13:17)
[2020-12-24] MEDS ORDERED: NOVOLOG FL100 UNIT/3 SC (13:20)
--- NOTE | 2020-12-24 15:02 | NUR ---
PT DISCAHRGE TO HOME. EDUCATED THE PT ABOUT NEW MEDICATIONS. PT MEDS FAXED TO [facility]. PT GIVEN DISCHARGE PACKET WITH INSTRUCTION. PT ALREADY HAS APPOINTMENT TO PCP TOMORROW; PHONE NUMBER GIVEN FOR CANCELLATION. PT IV DC'D. DENIES ANY PAIN; PRINTED EDUCATION ABOUT EDEMA AND FLUID RETENTION. AWARE
== END 2020-12-24 14:53 | disposition home or self-care (01) | DRG 554 ==
LOC: ER 14:25 → MEDS 20:35 → ENPENDDIS 12-24 13:03 → MEDS 12-24 14:53
PROVIDERS: Family Medicine; Hospitalist; Pharmacist; Student in an Organized Health Care Education/Training Program; ADMIT Internal Medicine
PROC: 5A09357 Assistance with Respiratory Ventilation, Less than 24 Consecutive Hours, Continuous Positive Airway Pressure (ICD-10-PCS; principal; 2020-12-19)
DX: M10.00 Idiopathic gout, unspecified site (principal); N18.4 Chronic kidney disease, stage 4 (severe); I50.32 Chronic diastolic (congestive) heart failure; D68.62 Lupus anticoagulant syndrome; Z68.42 Body mass index [BMI] 45.0-49.9, adult; N17.9 Acute kidney failure, unspecified; E03.9 Hypothyroidism, unspecified; Z86.718 Personal history of other venous thrombosis and embolism; I12.9 Hypertensive chronic kidney disease with stage 1 through stage 4 chronic kidney disease, or unspecified chronic kidney disease; G47.33 Obstructive sleep apnea (adult) (pediatric); Z95.0 Presence of cardiac pacemaker; F32.9 Major depressive disorder, single episode, unspecified; K21.9 Gastro-esophageal reflux disease without esophagitis; Z79.899 Other long term (current) drug therapy; Z98.890 Other specified postprocedural states; Z98.49 Cataract extraction status, unspecified eye; E21.3 Hyperparathyroidism, unspecified; J44.9 Chronic obstructive pulmonary disease, unspecified; E88.09 Other disorders of plasma-protein metabolism, not elsewhere classified; E66.01 Morbid (severe) obesity due to excess calories; R41.0 Disorientation, unspecified; E87.6 Hypokalemia
CPT/HCPCS: 20611; 36415; 71046; 73560-RT; 76770; 80053; 80069; 80202; 81001; 82565; 82945; 82947; 83605; 83735; 83880; 84100; 84145; 84443; 84484; 84550; 85025; 85651; 86140; 86141; 87040; 87070; 87075; 87086; 87205; 89051; 89060; 93005; 93010; 94660; 94760; 94762; 96374; 96375; 97110; 97116; 97162; 97530; 99285-25; A9270; C8923; J0360; J0696; J2270; J2405; J2930; J3370; J7030; J7050

== ENCOUNTER 2021-03-25 17:55 | Emergency (ER) | payer MEDICARE, OTHER ==
[~2021-03-25] VITALS: Ht 180.3 cm; Wt 154.2 kg
[~2021-03-25 17:55] MED LIST changes: +LEVSOD88 PO; +NORVASC5 MG PO; +NOVOLOG FL100 UNIT/3 SC; +NYAMYC15 G1 TOP; +OZEMPIC1 MG/0.72 SC; +TOUJEO SOL300 UNIT/2 SC; +TRIA15CR3 TOP
[2021-03-25 18:39] LABS: BASOPHILS ABSOLUTE AUTO 0.04 K/mm3 (0.00-0.23); BASOPHILS PERCENT AUTO 0 % (0-2); EOSINOPHILS ABSOLUTE AUTO 0.14 K/mm3 (0.00-0.68); EOSINOPHILS PERCENT AUTO 1 % (0-6); Hematocrit 36.7 % (37.0-53.0); Hemoglobin 11.8 g/dL (13.5-17.5); IMMATURE GRAN ABSOLUTE AUTO 0.08 K/mm3 (0.00-0.10); IMMATURE GRAN PERCENT AUTO 1 % (0-1); LYMPHOCYTES ABSOLUTE AUTO 0.85 K/mm3 (0.84-5.20); LYMPHOCYTES PERCENT AUTO 6 % (21-46); MONOCYTES ABSOLUTE AUTO 0.95 K/mm3 (0.16-1.47); MONOCYTES PERCENT AUTO 7 % (4-13); Mean Corpuscular HGB 30.3 pg (26.0-34.0); Mean Corpuscular HGB Conc 32.2 g/dL (31.5-36.5); Mean Corpuscular Volume 94 fL (80-100); Mean Platelet Volume 10.6 fL (9.1-12.4); NEUTROPHILS ABSOLUTE AUTO 11.82 K/mm3 (1.96-9.15); NEUTROPHILS PERCENT AUTO 85 % (41-73); Platelet Count 242 K/mm3 (150-400); RDW Coefficient Variation 15.2 % (11.7-14.2); RDW Standard Deviation 52.9 fL (35.1-46.3); Red Blood Cell Count 3.89 M/mm3 (4.30-5.90); White Blood Cell Count 13.88 K/mm3 (4.00-11.30)
[2021-03-25 19:11] LABS: Albumin, Blood 2.3 g/dL (3.4-5.0); Albumin/Globulin Ratio 0.5 (0.8-1.8); Bilirubin, Total 0.7 mg/dL (0.1-1.0); Bun/Creatinine Ratio 19.7 (12.0-20.0); Calcium, Blood 9.4 mg/dL (8.5-10.1); Creatinine, Blood 2.44 mg/dL (0.60-1.20); Globulin, Blood 4.8 g/dL (2.2-4.0); Potassium, Blood 4.6 mmol/L (3.5-5.5); Total Protein, Blood 7.1 g/dL (6.4-8.2)
[2021-03-25 22:20] LABS: Source, Urine Clean Catch
[2021-03-25 22:30] LABS: Bilirubin, Urine Neg (Neg); Blood, Urine Neg (Neg); Glucose Qualitative, Urine Neg (Neg); Ketones, Urine Neg (Neg); Leukocyte Esterase, Urine 2+ (Neg); Nitrite, Urine Neg (Neg); Protein, Urine Neg (Neg); Specific Gravity, Urine 1.015 (1.003-1.022); Urobilinogen, Urine NORM (Normal)
[2021-03-25 22:38] LABS: Appearance, Urine Clear (Clear); Color, Urine Yellow (P-Yellow)
[2021-03-25 22:39] LABS: Bacteria Few /hpf; Granular Casts 0-2 /lpf (0); Red Blood Cells, Urine Not Seen /hpf (0-2); Squamous Epithelial Cells Rare /hpf (Few)
== END 2021-03-25 22:45 | disposition home or self-care (01) ==
LOC: ER 17:55
PROVIDERS: Physician Assistant
DX: R10.32 Left lower quadrant pain (principal); M79.89 Other specified soft tissue disorders; E11.9 Type 2 diabetes mellitus without complications; I10 Essential (primary) hypertension; E78.5 Hyperlipidemia, unspecified
CPT/HCPCS: 36415; 74176; 80053; 81001; 83690; 84484; 85025; 87077; 87086; 87186; 93005; 93010; 99284-25

== ENCOUNTER → 2021-05-07 | Outpatient (CLI) | payer MEDICARE, OTHER ==
[2021-05-07 15:45] LABS: BASOPHILS ABSOLUTE AUTO 0.07 K/mm3 (0.00-0.23); BASOPHILS PERCENT AUTO 1 % (0-2); EOSINOPHILS ABSOLUTE AUTO 0.19 K/mm3 (0.00-0.68); EOSINOPHILS PERCENT AUTO 2 % (0-6); Hematocrit 38.3 % (37.0-53.0); Hemoglobin 12.2 g/dL (13.5-17.5); IMMATURE GRAN ABSOLUTE AUTO 0.07 K/mm3 (0.00-0.10); IMMATURE GRAN PERCENT AUTO 1 % (0-1); LYMPHOCYTES PERCENT AUTO 14 % (21-46); MONOCYTES ABSOLUTE AUTO 0.78 K/mm3 (0.16-1.47); MONOCYTES PERCENT AUTO 8 % (4-13); Mean Corpuscular HGB 29.9 pg (26.0-34.0); Mean Corpuscular HGB Conc 31.9 g/dL (31.5-36.5); Mean Corpuscular Volume 94 fL (80-100); Mean Platelet Volume 10.1 fL (9.1-12.4); NEUTROPHILS ABSOLUTE AUTO 7.66 K/mm3 (1.96-9.15); NEUTROPHILS PERCENT AUTO 75 % (41-73); Platelet Count 219 K/mm3 (150-400); RDW Coefficient Variation 15.5 % (11.7-14.2); RDW Standard Deviation 52.6 fL (35.1-46.3); Red Blood Cell Count 4.08 M/mm3 (4.30-5.90); White Blood Cell Count 10.17 K/mm3 (4.00-11.30)
[2021-05-07 17:57] LABS: Albumin, Blood 2.7 g/dL (3.4-5.0); Anion Gap 7 mmol/L (6-16); Blood Urea Nitrogen 30 mg/dL (8-24); Bun/Creatinine Ratio 16.9 (12.0-20.0); CO2, Blood 27 mmol/L (21-32); Calcium, Blood 9.1 mg/dL (8.5-10.1); Chloride, Blood 108 mmol/L (98-108); Creatinine, Blood 1.78 mg/dL (0.60-1.20); Glomerular Filtration Rate 36 (60-); Glucose, Blood 126 mg/dL (70-99); Phosphorus, Blood 4.2 mg/dL (2.5-4.9); Potassium, Blood 4.5 mmol/L (3.5-5.5); Sodium, Blood 142 mmol/L (136-145); Uric Acid, Blood 5.6 mg/dL (3.5-7.2)
== END | disposition home or self-care (01) ==
LOC: LAB SHORT 14:19 → LAB 14:19
PROVIDERS: Family Medicine
DX: N18.4 Chronic kidney disease, stage 4 (severe) (principal); D63.1 Anemia in chronic kidney disease; M10.9 Gout, unspecified
CPT/HCPCS: 36415; 80069; 84550; 85025

== ENCOUNTER → 2021-11-21 | Outpatient (CLI) | payer MEDICARE, OTHER ==
[2021-11-21 21:14] LABS: Campylobacter Sp Not Detected (NOT DETECT); Cryptosporidium Not Detected (NOT DETECT); Cyclospora Cayetanensis Not Detected (NOT DETECT); E. Coli O157 Not Detected (NOT DETECT); Enteroaggregative E. coli-EAEC Not Detected (NOT DETECT); Enteropathogenic E. coli-EPEC Not Detected (NOT DETECT); Enterotoxigenic E. coli-ETEC Not Detected (NOT DETECT); Plesiomonas Shigelloides Not Detected (NOT DETECT); Salmonella Sp Not Detected (NOT DETECT); Shiga Toxin-prod E. coli-STEC Not Detected (NOT DETECT); Shigella/Enteroin E. coli-EIEC Not Detected (NOT DETECT); Vibrio Cholerae Not Detected (NOT DETECT); Vibrio Sp Not Detected (NOT DETECT); Yersinia Enterocolitica Not Detected (NOT DETECT)
[2021-11-21 21:15] LABS: Adenovirus F 40/41 Not Detected (NOT DETECT); Astrovirus Not Detected (NOT DETECT); Entamoeba Histolytica Not Detected (NOT DETECT); Giardia Lamblia Not Detected (NOT DETECT); Norovirus GI/GII Not Detected (NOT DETECT); Rotavirus A Not Detected (NOT DETECT); Sapovirus Not Detected (NOT DETECT)
== END | disposition home or self-care (01) ==
LOC: LAB SHORT 14:00 → LAB 14:00
PROVIDERS: Family Medicine
DX: R19.7 Diarrhea, unspecified (principal)
CPT/HCPCS: 87507

== ENCOUNTER 2022-10-15 14:01 | Emergency (ER) | payer MEDICARE, OTHER ==
[~2022-10-15] VITALS: Ht 180.3 cm; Wt 136.1 kg
[2022-10-15 14:11] VITALS: BP 192/81
[2022-10-15] MEDS ORDERED: Norco 5-325 Ta1 EACH PO (16:26)
== END 2022-10-15 16:33 | disposition home or self-care (01) ==
LOC: ER 14:01
DX: M25.562 Pain in left knee (principal); G47.33 Obstructive sleep apnea (adult) (pediatric); I13.0 Hypertensive heart and chronic kidney disease with heart failure and stage 1 through stage 4 chronic kidney disease, or unspecified chronic kidney disease; E11.22 Type 2 diabetes mellitus with diabetic chronic kidney disease; N18.30 Chronic kidney disease, stage 3 unspecified; I50.32 Chronic diastolic (congestive) heart failure; I25.10 Atherosclerotic heart disease of native coronary artery without angina pectoris; E03.9 Hypothyroidism, unspecified; Z86.718 Personal history of other venous thrombosis and embolism; Z79.4 Long term (current) use of insulin; Z79.01 Long term (current) use of anticoagulants; Z79.899 Other long term (current) drug therapy
CPT/HCPCS: 93971; A9270

== ENCOUNTER → 2022-10-20 | Outpatient (CLI) | payer MEDICARE, OTHER | LOC: LAB SHORT 11:05 → LAB 11:05 | DX: L08.9 Local infection of the skin and subcutaneous tissue, unspecified (principal) | CPT/HCPCS: 87070; 87205 ==

== ENCOUNTER 2022-12-30 09:16 | Day surgery (SDC) | payer MEDICARE, OTHER ==
[~2022-12-30] VITALS: Ht 180.3 cm; Wt 150.7 kg
[2022-12-30 11:48] VITALS: BP 114/57
== END 2022-12-30 11:50 | disposition home or self-care (01) ==
LOC: ORSCSDS 09:16
PROVIDERS: Internal Medicine Gastroenterology
PROC: 0DBL8ZX Excision of Transverse Colon, Via Natural or Artificial Opening Endoscopic, Diagnostic (ICD-10-PCS; principal; 2022-12-30 10:45)
DX: R19.4 Change in bowel habit (principal); Z86.010 Personal history of colon polyps; D12.3 Benign neoplasm of transverse colon; K57.30 Diverticulosis of large intestine without perforation or abscess without bleeding; K64.4 Residual hemorrhoidal skin tags; E11.22 Type 2 diabetes mellitus with diabetic chronic kidney disease; I12.9 Hypertensive chronic kidney disease with stage 1 through stage 4 chronic kidney disease, or unspecified chronic kidney disease; N18.30 Chronic kidney disease, stage 3 unspecified; E03.9 Hypothyroidism, unspecified; I25.10 Atherosclerotic heart disease of native coronary artery without angina pectoris; I50.9 Heart failure, unspecified; G47.33 Obstructive sleep apnea (adult) (pediatric); K21.9 Gastro-esophageal reflux disease without esophagitis; E66.01 Morbid (severe) obesity due to excess calories; Z68.42 Body mass index [BMI] 45.0-49.9, adult; Z79.899 Other long term (current) drug therapy; Z79.01 Long term (current) use of anticoagulants
CPT/HCPCS: 82947; 88305; J2704; J7120

== ENCOUNTER 2023-02-26 01:55 | Day surgery (SDC) | payer MEDICARE, OTHER ==
[~2023-02-26 01:55] MED LIST changes: +MUPIROCIN1 G1 TOP
== END 2023-02-26 23:29 | disposition home or self-care (01) ==
LOC: WOUND 01:55
DX: I87.313 Chronic venous hypertension (idiopathic) with ulcer of bilateral lower extremity (principal); L97.812 Non-pressure chronic ulcer of other part of right lower leg with fat layer exposed; L97.822 Non-pressure chronic ulcer of other part of left lower leg with fat layer exposed; L25.9 Unspecified contact dermatitis, unspecified cause; E11.65 Type 2 diabetes mellitus with hyperglycemia; E11.51 Type 2 diabetes mellitus with diabetic peripheral angiopathy without gangrene; I87.2 Venous insufficiency (chronic) (peripheral); I13.0 Hypertensive heart and chronic kidney disease with heart failure and stage 1 through stage 4 chronic kidney disease, or unspecified chronic kidney disease; E11.22 Type 2 diabetes mellitus with diabetic chronic kidney disease; N18.6 End stage renal disease; I50.9 Heart failure, unspecified; E03.9 Hypothyroidism, unspecified; G47.33 Obstructive sleep apnea (adult) (pediatric)
CPT/HCPCS: A9270; G0463

== ENCOUNTER 2023-03-05 03:25 | Day surgery (SDC) | payer MEDICARE, OTHER | END 2023-03-05 22:39 | disposition home or self-care (01) | LOC: WOUND 03:25 | DX: I87.313 Chronic venous hypertension (idiopathic) with ulcer of bilateral lower extremity (principal); L97.812 Non-pressure chronic ulcer of other part of right lower leg with fat layer exposed; E11.65 Type 2 diabetes mellitus with hyperglycemia; E11.51 Type 2 diabetes mellitus with diabetic peripheral angiopathy without gangrene; E11.22 Type 2 diabetes mellitus with diabetic chronic kidney disease; I13.0 Hypertensive heart and chronic kidney disease with heart failure and stage 1 through stage 4 chronic kidney disease, or unspecified chronic kidney disease; N18.9 Chronic kidney disease, unspecified; I50.9 Heart failure, unspecified; E03.9 Hypothyroidism, unspecified; G47.33 Obstructive sleep apnea (adult) (pediatric); Z99.89 Dependence on other enabling machines and devices | CPT/HCPCS: G0463 ==

== ENCOUNTER → 2023-03-09 | Outpatient (CLI) | payer MEDICARE, OTHER | END | disposition home or self-care (01) | LOC: LAB SHORT 09:41 → PLD 09:41 | DX: C44.329 Squamous cell carcinoma of skin of other parts of face (principal); D48.5 Neoplasm of uncertain behavior of skin | CPT/HCPCS: 88305 ==

== ENCOUNTER 2023-03-13 03:10 | Day surgery (SDC) | payer MEDICARE, OTHER | END 2023-03-13 23:01 | disposition home or self-care (01) | LOC: WOUND 03:10 | DX: I87.313 Chronic venous hypertension (idiopathic) with ulcer of bilateral lower extremity (principal); L25.9 Unspecified contact dermatitis, unspecified cause; E11.65 Type 2 diabetes mellitus with hyperglycemia; E11.51 Type 2 diabetes mellitus with diabetic peripheral angiopathy without gangrene; E11.22 Type 2 diabetes mellitus with diabetic chronic kidney disease; I13.0 Hypertensive heart and chronic kidney disease with heart failure and stage 1 through stage 4 chronic kidney disease, or unspecified chronic kidney disease; N18.9 Chronic kidney disease, unspecified; I50.9 Heart failure, unspecified; E03.9 Hypothyroidism, unspecified; G47.33 Obstructive sleep apnea (adult) (pediatric); Z99.89 Dependence on other enabling machines and devices | CPT/HCPCS: G0463 ==

== ENCOUNTER 2023-03-19 05:21 | Day surgery (SDC) | payer MEDICARE, OTHER | END 2023-03-19 22:37 | disposition home or self-care (01) | LOC: WOUND 05:21 | DX: I87.313 Chronic venous hypertension (idiopathic) with ulcer of bilateral lower extremity (principal); L25.9 Unspecified contact dermatitis, unspecified cause; E11.65 Type 2 diabetes mellitus with hyperglycemia; E11.51 Type 2 diabetes mellitus with diabetic peripheral angiopathy without gangrene; I87.2 Venous insufficiency (chronic) (peripheral) | CPT/HCPCS: G0463 ==

== ENCOUNTER 2023-04-02 02:04 | Day surgery (SDC) | payer MEDICARE, OTHER | END 2023-04-02 22:48 | disposition home or self-care (01) | LOC: WOUND 02:04 | DX: I87.313 Chronic venous hypertension (idiopathic) with ulcer of bilateral lower extremity (principal); L97.822 Non-pressure chronic ulcer of other part of left lower leg with fat layer exposed; L25.9 Unspecified contact dermatitis, unspecified cause; E11.65 Type 2 diabetes mellitus with hyperglycemia; E11.51 Type 2 diabetes mellitus with diabetic peripheral angiopathy without gangrene; I87.2 Venous insufficiency (chronic) (peripheral); I13.0 Hypertensive heart and chronic kidney disease with heart failure and stage 1 through stage 4 chronic kidney disease, or unspecified chronic kidney disease; E11.22 Type 2 diabetes mellitus with diabetic chronic kidney disease; N18.9 Chronic kidney disease, unspecified; I50.9 Heart failure, unspecified; E03.9 Hypothyroidism, unspecified; G47.33 Obstructive sleep apnea (adult) (pediatric); Z45.018 Encounter for adjustment and management of other part of cardiac pacemaker | CPT/HCPCS: 93280; G0463 ==

== ENCOUNTER 2023-05-12 11:16 | Emergency (ER) | payer MEDICARE, OTHER ==
[~2023-05-12] VITALS: Ht 180.3 cm; Wt 157.4 kg
[2023-05-12 11:51] LABS: BASOPHILS ABSOLUTE AUTO 0.04 K/mm3 (0.00-0.23); BASOPHILS PERCENT AUTO 0 % (0-2); EOSINOPHILS ABSOLUTE AUTO 0.23 K/mm3 (0.00-0.68); EOSINOPHILS PERCENT AUTO 3 % (0-6); Hematocrit 33.4 % (37.0-53.0); Hemoglobin 10.8 g/dL (13.5-17.5); IMMATURE GRAN ABSOLUTE AUTO 0.04 K/mm3 (0.00-0.10); IMMATURE GRAN PERCENT AUTO 0 % (0-1); LYMPHOCYTES ABSOLUTE AUTO 1.53 K/mm3 (0.84-5.20); LYMPHOCYTES PERCENT AUTO 17 % (21-46); MONOCYTES ABSOLUTE AUTO 0.73 K/mm3 (0.16-1.47); MONOCYTES PERCENT AUTO 8 % (4-13); Mean Corpuscular HGB 31.6 pg (26.0-34.0); Mean Corpuscular HGB Conc 32.3 g/dL (31.5-36.5); Mean Corpuscular Volume 98 fL (80-100); Mean Platelet Volume 10.1 fL (9.1-12.4); NEUTROPHILS ABSOLUTE AUTO 6.48 K/mm3 (1.96-9.15); NEUTROPHILS PERCENT AUTO 72 % (41-73); Platelet Count 164 K/mm3 (150-400); RDW Coefficient Variation 15.2 % (11.7-14.2); RDW Standard Deviation 54.2 fL (35.1-46.3); Red Blood Cell Count 3.42 M/mm3 (4.30-5.90); White Blood Cell Count 9.05 K/mm3 (4.00-11.30)
[2023-05-12 12:18] LABS: Albumin, Blood 2.8 g/dL (3.4-5.0); Albumin/Globulin Ratio 0.7 (0.8-1.8); Bilirubin, Total 0.3 mg/dL (0.1-1.0); Bun/Creatinine Ratio 18.9 (12.0-20.0); Calcium, Blood 8.3 mg/dL (8.5-10.1); Creatinine, Blood 3.01 mg/dL (0.60-1.20); Potassium, Blood 4.3 mmol/L (3.5-5.5); Total Protein, Blood 6.8 g/dL (6.4-8.2)
[2023-05-12 12:35] LABS: Influenza A, PCR NEGATIVE (NEGATIVE); Influenza B, PCR NEGATIVE (NEGATIVE); Resp Syncytial Virus, PCR NEGATIVE (NEGATIVE); SARS-Cov-2 (COVID-19) PCR, MMC NEGATIVE (NEGATIVE)
[2023-05-12] MEDS ORDERED: AZIT250 PO (14:19)
[2023-05-12] MEDS ORDERED: ALBU90OI INH (14:19)
[2023-05-12 15:08] VITALS: BP 133/51
== END 2023-05-12 14:53 | disposition home or self-care (01) ==
LOC: ER 11:16
PROVIDERS: Physician Assistant
DX: J18.9 Pneumonia, unspecified organism (principal); R60.0 Localized edema; E11.9 Type 2 diabetes mellitus without complications; I10 Essential (primary) hypertension; E78.5 Hyperlipidemia, unspecified; Z95.0 Presence of cardiac pacemaker; Z79.4 Long term (current) use of insulin; Z79.01 Long term (current) use of anticoagulants; Z79.899 Other long term (current) drug therapy; Z79.890 Hormone replacement therapy
CPT/HCPCS: 0241U; 71046; 80053; 83880; 84484; 85025; 93005; 93010; 94640; 94664; 99285-25

== ENCOUNTER 2023-06-01 03:37 | Day surgery (SDC) | payer MEDICARE, OTHER ==
[~2023-06-01 03:37] MED LIST changes: +ALBU90OI INH; +AZIT250 PO
== END 2023-06-01 22:55 | disposition home or self-care (01) ==
LOC: WOUND 03:37
DX: E11.621 Type 2 diabetes mellitus with foot ulcer (principal); L97.422 Non-pressure chronic ulcer of left heel and midfoot with fat layer exposed; I87.313 Chronic venous hypertension (idiopathic) with ulcer of bilateral lower extremity; L25.9 Unspecified contact dermatitis, unspecified cause; E11.65 Type 2 diabetes mellitus with hyperglycemia; E11.51 Type 2 diabetes mellitus with diabetic peripheral angiopathy without gangrene; I87.2 Venous insufficiency (chronic) (peripheral); I13.0 Hypertensive heart and chronic kidney disease with heart failure and stage 1 through stage 4 chronic kidney disease, or unspecified chronic kidney disease; E11.22 Type 2 diabetes mellitus with diabetic chronic kidney disease; N18.9 Chronic kidney disease, unspecified; I50.9 Heart failure, unspecified; E03.9 Hypothyroidism, unspecified; G47.33 Obstructive sleep apnea (adult) (pediatric)
CPT/HCPCS: G0463

== ENCOUNTER 2023-06-08 03:36 | Day surgery (SDC) | payer MEDICARE, OTHER | END 2023-06-08 22:45 | disposition home or self-care (01) | LOC: WOUND 03:36 | DX: I87.313 Chronic venous hypertension (idiopathic) with ulcer of bilateral lower extremity (principal); E11.621 Type 2 diabetes mellitus with foot ulcer; L97.522 Non-pressure chronic ulcer of other part of left foot with fat layer exposed; L89.890 Pressure ulcer of other site, unstageable; E11.22 Type 2 diabetes mellitus with diabetic chronic kidney disease; I13.0 Hypertensive heart and chronic kidney disease with heart failure and stage 1 through stage 4 chronic kidney disease, or unspecified chronic kidney disease; N18.9 Chronic kidney disease, unspecified; I50.9 Heart failure, unspecified; E03.9 Hypothyroidism, unspecified; G47.33 Obstructive sleep apnea (adult) (pediatric); L25.9 Unspecified contact dermatitis, unspecified cause; E11.65 Type 2 diabetes mellitus with hyperglycemia; E11.51 Type 2 diabetes mellitus with diabetic peripheral angiopathy without gangrene; Z99.89 Dependence on other enabling machines and devices | CPT/HCPCS: G0463 ==

== ENCOUNTER 2023-06-15 03:10 | Day surgery (SDC) | payer MEDICARE, OTHER | END 2023-06-15 23:31 | disposition home or self-care (01) | LOC: WOUND 03:10 | DX: E11.621 Type 2 diabetes mellitus with foot ulcer (principal); L97.522 Non-pressure chronic ulcer of other part of left foot with fat layer exposed; L89.890 Pressure ulcer of other site, unstageable; I87.313 Chronic venous hypertension (idiopathic) with ulcer of bilateral lower extremity; E11.65 Type 2 diabetes mellitus with hyperglycemia; I13.0 Hypertensive heart and chronic kidney disease with heart failure and stage 1 through stage 4 chronic kidney disease, or unspecified chronic kidney disease; I50.9 Heart failure, unspecified; N18.9 Chronic kidney disease, unspecified; E11.22 Type 2 diabetes mellitus with diabetic chronic kidney disease; E03.9 Hypothyroidism, unspecified; G47.33 Obstructive sleep apnea (adult) (pediatric); L25.9 Unspecified contact dermatitis, unspecified cause; S91.101D Unspecified open wound of right great toe without damage to nail, subsequent encounter; Z99.89 Dependence on other enabling machines and devices; X58.XXXD Exposure to other specified factors, subsequent encounter ==

== ENCOUNTER 2023-06-22 02:17 | Day surgery (SDC) | payer MEDICARE, OTHER | END 2023-06-22 23:02 | disposition home or self-care (01) | LOC: WOUND 02:17 | DX: L89.893 Pressure ulcer of other site, stage 3 (principal); E11.621 Type 2 diabetes mellitus with foot ulcer; L97.522 Non-pressure chronic ulcer of other part of left foot with fat layer exposed; I87.312 Chronic venous hypertension (idiopathic) with ulcer of left lower extremity; E11.51 Type 2 diabetes mellitus with diabetic peripheral angiopathy without gangrene; E11.65 Type 2 diabetes mellitus with hyperglycemia; L25.9 Unspecified contact dermatitis, unspecified cause; S91.102D Unspecified open wound of left great toe without damage to nail, subsequent encounter; E11.22 Type 2 diabetes mellitus with diabetic chronic kidney disease; I13.0 Hypertensive heart and chronic kidney disease with heart failure and stage 1 through stage 4 chronic kidney disease, or unspecified chronic kidney disease; N18.9 Chronic kidney disease, unspecified; I50.9 Heart failure, unspecified; E03.9 Hypothyroidism, unspecified; G47.33 Obstructive sleep apnea (adult) (pediatric); Z99.89 Dependence on other enabling machines and devices; X58.XXXD Exposure to other specified factors, subsequent encounter | CPT/HCPCS: G0463 ==

== ENCOUNTER 2023-06-29 00:22 | Day surgery (SDC) | payer MEDICARE, OTHER | END 2023-06-29 23:42 | disposition home or self-care (01) | LOC: WOUND 00:22 | DX: E11.621 Type 2 diabetes mellitus with foot ulcer (principal); L89.893 Pressure ulcer of other site, stage 3; N18.9 Chronic kidney disease, unspecified; I50.9 Heart failure, unspecified; E11.22 Type 2 diabetes mellitus with diabetic chronic kidney disease; I13.0 Hypertensive heart and chronic kidney disease with heart failure and stage 1 through stage 4 chronic kidney disease, or unspecified chronic kidney disease; E03.9 Hypothyroidism, unspecified; G47.33 Obstructive sleep apnea (adult) (pediatric); I87.312 Chronic venous hypertension (idiopathic) with ulcer of left lower extremity; S91.102D Unspecified open wound of left great toe without damage to nail, subsequent encounter; L25.9 Unspecified contact dermatitis, unspecified cause; E11.65 Type 2 diabetes mellitus with hyperglycemia; E11.51 Type 2 diabetes mellitus with diabetic peripheral angiopathy without gangrene | CPT/HCPCS: G0463 ==

== ENCOUNTER 2023-07-06 08:00 | Day surgery (SDC) | payer MEDICARE, OTHER | END 2023-07-06 22:41 | disposition home or self-care (01) | LOC: WOUND 08:00 | DX: E11.621 Type 2 diabetes mellitus with foot ulcer (principal); L97.522 Non-pressure chronic ulcer of other part of left foot with fat layer exposed; I87.312 Chronic venous hypertension (idiopathic) with ulcer of left lower extremity; L89.893 Pressure ulcer of other site, stage 3; L25.9 Unspecified contact dermatitis, unspecified cause; S91.102D Unspecified open wound of left great toe without damage to nail, subsequent encounter; E11.65 Type 2 diabetes mellitus with hyperglycemia; E11.51 Type 2 diabetes mellitus with diabetic peripheral angiopathy without gangrene; I87.2 Venous insufficiency (chronic) (peripheral); E11.22 Type 2 diabetes mellitus with diabetic chronic kidney disease; I13.0 Hypertensive heart and chronic kidney disease with heart failure and stage 1 through stage 4 chronic kidney disease, or unspecified chronic kidney disease; N18.9 Chronic kidney disease, unspecified; I50.9 Heart failure, unspecified; E03.9 Hypothyroidism, unspecified; G47.33 Obstructive sleep apnea (adult) (pediatric); Z99.89 Dependence on other enabling machines and devices; X58.XXXD Exposure to other specified factors, subsequent encounter | CPT/HCPCS: G0463 ==

== ENCOUNTER 2023-09-21 00:29 | Day surgery (SDC) | payer MEDICARE, OTHER | END 2023-09-21 22:39 | disposition home or self-care (01) | LOC: WOUND 00:29 | DX: E11.51 Type 2 diabetes mellitus with diabetic peripheral angiopathy without gangrene (principal); L98.492 Non-pressure chronic ulcer of skin of other sites with fat layer exposed; I70.25 Atherosclerosis of native arteries of other extremities with ulceration; I87.312 Chronic venous hypertension (idiopathic) with ulcer of left lower extremity; L25.9 Unspecified contact dermatitis, unspecified cause; I87.2 Venous insufficiency (chronic) (peripheral); S61.401D Unspecified open wound of right hand, subsequent encounter; I13.0 Hypertensive heart and chronic kidney disease with heart failure and stage 1 through stage 4 chronic kidney disease, or unspecified chronic kidney disease; I50.9 Heart failure, unspecified; E11.22 Type 2 diabetes mellitus with diabetic chronic kidney disease; N18.9 Chronic kidney disease, unspecified; E03.9 Hypothyroidism, unspecified; G47.33 Obstructive sleep apnea (adult) (pediatric); Z86.718 Personal history of other venous thrombosis and embolism; S91.102D Unspecified open wound of left great toe without damage to nail, subsequent encounter; E11.65 Type 2 diabetes mellitus with hyperglycemia; Z89.412 Acquired absence of left great toe | CPT/HCPCS: 73630; G0463 ==

== ENCOUNTER 2023-09-28 04:15 | Day surgery (SDC) | payer MEDICARE, OTHER | END 2023-09-28 22:46 | disposition home or self-care (01) | LOC: WOUND 04:15 | DX: E11.621 Type 2 diabetes mellitus with foot ulcer (principal); L97.422 Non-pressure chronic ulcer of left heel and midfoot with fat layer exposed; S61.200A Unspecified open wound of right index finger without damage to nail, initial encounter; X58.XXXA Exposure to other specified factors, initial encounter; S91.102D Unspecified open wound of left great toe without damage to nail, subsequent encounter; X58.XXXD Exposure to other specified factors, subsequent encounter; I87.312 Chronic venous hypertension (idiopathic) with ulcer of left lower extremity; L25.9 Unspecified contact dermatitis, unspecified cause; E11.65 Type 2 diabetes mellitus with hyperglycemia; E11.51 Type 2 diabetes mellitus with diabetic peripheral angiopathy without gangrene; I87.2 Venous insufficiency (chronic) (peripheral); I13.0 Hypertensive heart and chronic kidney disease with heart failure and stage 1 through stage 4 chronic kidney disease, or unspecified chronic kidney disease; E11.22 Type 2 diabetes mellitus with diabetic chronic kidney disease; N18.9 Chronic kidney disease, unspecified; I50.9 Heart failure, unspecified; E03.9 Hypothyroidism, unspecified; G47.33 Obstructive sleep apnea (adult) (pediatric) ==

== ENCOUNTER 2023-11-23 02:06 | Day surgery (SDC) | payer MEDICARE, OTHER | END 2023-11-23 04:21 | disposition home or self-care (01) | LOC: WOUND 02:06 | DX: S61.200D Unspecified open wound of right index finger without damage to nail, subsequent encounter (principal); S31.103D Unspecified open wound of abdominal wall, right lower quadrant without penetration into peritoneal cavity, subsequent encounter; S61.401D Unspecified open wound of right hand, subsequent encounter; E11.621 Type 2 diabetes mellitus with foot ulcer; L97.529 Non-pressure chronic ulcer of other part of left foot with unspecified severity; I13.0 Hypertensive heart and chronic kidney disease with heart failure and stage 1 through stage 4 chronic kidney disease, or unspecified chronic kidney disease; E11.22 Type 2 diabetes mellitus with diabetic chronic kidney disease; N18.9 Chronic kidney disease, unspecified; I50.9 Heart failure, unspecified; G47.33 Obstructive sleep apnea (adult) (pediatric); E03.9 Hypothyroidism, unspecified; L25.9 Unspecified contact dermatitis, unspecified cause; E11.65 Type 2 diabetes mellitus with hyperglycemia; E11.51 Type 2 diabetes mellitus with diabetic peripheral angiopathy without gangrene; I87.2 Venous insufficiency (chronic) (peripheral); Z99.89 Dependence on other enabling machines and devices; X58.XXXD Exposure to other specified factors, subsequent encounter | CPT/HCPCS: G0463 ==

== ENCOUNTER 2023-11-30 03:28 | Day surgery (SDC) | payer MEDICARE, OTHER | END 2023-11-30 23:11 | disposition home or self-care (01) | LOC: WOUND 03:28 | DX: E11.621 Type 2 diabetes mellitus with foot ulcer (principal); L97.522 Non-pressure chronic ulcer of other part of left foot with fat layer exposed; S61.200D Unspecified open wound of right index finger without damage to nail, subsequent encounter; S61.202D Unspecified open wound of right middle finger without damage to nail, subsequent encounter; S31.103D Unspecified open wound of abdominal wall, right lower quadrant without penetration into peritoneal cavity, subsequent encounter; I13.0 Hypertensive heart and chronic kidney disease with heart failure and stage 1 through stage 4 chronic kidney disease, or unspecified chronic kidney disease; E11.22 Type 2 diabetes mellitus with diabetic chronic kidney disease; N18.9 Chronic kidney disease, unspecified; I50.9 Heart failure, unspecified; E03.9 Hypothyroidism, unspecified; G47.33 Obstructive sleep apnea (adult) (pediatric) | CPT/HCPCS: G0463 ==

== ENCOUNTER 2023-12-14 07:02 | Day surgery (SDC) | payer MEDICARE, OTHER | END 2023-12-14 23:55 | disposition home or self-care (01) | LOC: WOUND 07:02 | DX: E11.621 Type 2 diabetes mellitus with foot ulcer (principal); L97.522 Non-pressure chronic ulcer of other part of left foot with fat layer exposed; L02.211 Cutaneous abscess of abdominal wall; E11.622 Type 2 diabetes mellitus with other skin ulcer; I87.312 Chronic venous hypertension (idiopathic) with ulcer of left lower extremity; E11.22 Type 2 diabetes mellitus with diabetic chronic kidney disease; I13.0 Hypertensive heart and chronic kidney disease with heart failure and stage 1 through stage 4 chronic kidney disease, or unspecified chronic kidney disease; N18.9 Chronic kidney disease, unspecified; I50.9 Heart failure, unspecified; E03.9 Hypothyroidism, unspecified; G47.33 Obstructive sleep apnea (adult) (pediatric); S91.102D Unspecified open wound of left great toe without damage to nail, subsequent encounter; S61.200D Unspecified open wound of right index finger without damage to nail, subsequent encounter; S61.202D Unspecified open wound of right middle finger without damage to nail, subsequent encounter; E11.65 Type 2 diabetes mellitus with hyperglycemia; E11.51 Type 2 diabetes mellitus with diabetic peripheral angiopathy without gangrene; L25.9 Unspecified contact dermatitis, unspecified cause; I87.2 Venous insufficiency (chronic) (peripheral); Z99.89 Dependence on other enabling machines and devices; X58.XXXD Exposure to other specified factors, subsequent encounter | CPT/HCPCS: A6213 ==

== ENCOUNTER 2024-01-25 02:06 | Day surgery (SDC) | payer MEDICARE, OTHER | END 2024-01-25 23:00 | disposition home or self-care (01) | LOC: WOUND 02:06 | DX: E11.621 Type 2 diabetes mellitus with foot ulcer (principal); L97.522 Non-pressure chronic ulcer of other part of left foot with fat layer exposed; L97.512 Non-pressure chronic ulcer of other part of right foot with fat layer exposed; E11.622 Type 2 diabetes mellitus with other skin ulcer; I87.312 Chronic venous hypertension (idiopathic) with ulcer of left lower extremity; L25.9 Unspecified contact dermatitis, unspecified cause; E11.51 Type 2 diabetes mellitus with diabetic peripheral angiopathy without gangrene; I87.2 Venous insufficiency (chronic) (peripheral); I13.0 Hypertensive heart and chronic kidney disease with heart failure and stage 1 through stage 4 chronic kidney disease, or unspecified chronic kidney disease; E11.22 Type 2 diabetes mellitus with diabetic chronic kidney disease; N18.9 Chronic kidney disease, unspecified; I50.9 Heart failure, unspecified; G47.33 Obstructive sleep apnea (adult) (pediatric); E03.9 Hypothyroidism, unspecified | CPT/HCPCS: G0463 ==

== ENCOUNTER 2024-02-15 04:44 | Day surgery (SDC) | payer MEDICARE, OTHER | END 2024-02-16 23:03 | disposition home or self-care (01) | LOC: WOUND 04:44 | DX: E11.621 Type 2 diabetes mellitus with foot ulcer (principal); L97.512 Non-pressure chronic ulcer of other part of right foot with fat layer exposed; L97.522 Non-pressure chronic ulcer of other part of left foot with fat layer exposed; E11.22 Type 2 diabetes mellitus with diabetic chronic kidney disease; I13.0 Hypertensive heart and chronic kidney disease with heart failure and stage 1 through stage 4 chronic kidney disease, or unspecified chronic kidney disease; N18.9 Chronic kidney disease, unspecified; I50.9 Heart failure, unspecified; E03.9 Hypothyroidism, unspecified; G47.33 Obstructive sleep apnea (adult) (pediatric); E11.622 Type 2 diabetes mellitus with other skin ulcer; I87.312 Chronic venous hypertension (idiopathic) with ulcer of left lower extremity; L25.9 Unspecified contact dermatitis, unspecified cause; E11.65 Type 2 diabetes mellitus with hyperglycemia; E11.51 Type 2 diabetes mellitus with diabetic peripheral angiopathy without gangrene; I87.2 Venous insufficiency (chronic) (peripheral); Z99.89 Dependence on other enabling machines and devices | CPT/HCPCS: G0463 ==

== ENCOUNTER 2024-02-22 01:47 | Day surgery (SDC) | payer MEDICARE, OTHER | END 2024-02-22 23:00 | disposition home or self-care (01) | LOC: WOUND 01:47 | DX: E11.621 Type 2 diabetes mellitus with foot ulcer (principal); L97.512 Non-pressure chronic ulcer of other part of right foot with fat layer exposed; L97.522 Non-pressure chronic ulcer of other part of left foot with fat layer exposed; I87.312 Chronic venous hypertension (idiopathic) with ulcer of left lower extremity; E11.622 Type 2 diabetes mellitus with other skin ulcer; L25.9 Unspecified contact dermatitis, unspecified cause; E11.65 Type 2 diabetes mellitus with hyperglycemia; E03.9 Hypothyroidism, unspecified; G47.33 Obstructive sleep apnea (adult) (pediatric); I13.0 Hypertensive heart and chronic kidney disease with heart failure and stage 1 through stage 4 chronic kidney disease, or unspecified chronic kidney disease; E11.22 Type 2 diabetes mellitus with diabetic chronic kidney disease; N18.9 Chronic kidney disease, unspecified; I50.9 Heart failure, unspecified | CPT/HCPCS: G0463 ==

== ENCOUNTER 2024-03-07 02:56 | Day surgery (SDC) | payer MEDICARE, OTHER | END 2024-03-07 23:00 | disposition home or self-care (01) | LOC: WOUND 02:56 | DX: E11.621 Type 2 diabetes mellitus with foot ulcer (principal); L97.512 Non-pressure chronic ulcer of other part of right foot with fat layer exposed; L97.522 Non-pressure chronic ulcer of other part of left foot with fat layer exposed; S61.205A Unspecified open wound of left ring finger without damage to nail, initial encounter; S61.200A Unspecified open wound of right index finger without damage to nail, initial encounter; X58.XXXA Exposure to other specified factors, initial encounter; E11.51 Type 2 diabetes mellitus with diabetic peripheral angiopathy without gangrene; I13.0 Hypertensive heart and chronic kidney disease with heart failure and stage 1 through stage 4 chronic kidney disease, or unspecified chronic kidney disease; E11.22 Type 2 diabetes mellitus with diabetic chronic kidney disease; N18.9 Chronic kidney disease, unspecified; I50.9 Heart failure, unspecified; E03.9 Hypothyroidism, unspecified; G47.33 Obstructive sleep apnea (adult) (pediatric) | CPT/HCPCS: A6213; G0463 ==

== ENCOUNTER 2024-03-14 02:53 | Day surgery (SDC) | payer MEDICARE, OTHER | END 2024-03-14 22:46 | disposition home or self-care (01) | LOC: WOUND 02:53 | DX: E11.621 Type 2 diabetes mellitus with foot ulcer (principal); L97.522 Non-pressure chronic ulcer of other part of left foot with fat layer exposed; L97.512 Non-pressure chronic ulcer of other part of right foot with fat layer exposed; S61.200D Unspecified open wound of right index finger without damage to nail, subsequent encounter; E11.65 Type 2 diabetes mellitus with hyperglycemia; E11.51 Type 2 diabetes mellitus with diabetic peripheral angiopathy without gangrene; I87.2 Venous insufficiency (chronic) (peripheral); I13.2 Hypertensive heart and chronic kidney disease with heart failure and with stage 5 chronic kidney disease, or end stage renal disease; E11.22 Type 2 diabetes mellitus with diabetic chronic kidney disease; N18.6 End stage renal disease | CPT/HCPCS: G0463 ==

== ENCOUNTER 2024-03-28 03:59 | Day surgery (SDC) | payer MEDICARE, OTHER | END 2024-03-28 23:00 | disposition home or self-care (01) | LOC: WOUND 03:59 | DX: E11.621 Type 2 diabetes mellitus with foot ulcer (principal); L97.526 Non-pressure chronic ulcer of other part of left foot with bone involvement without evidence of necrosis; L97.512 Non-pressure chronic ulcer of other part of right foot with fat layer exposed; S61.200D Unspecified open wound of right index finger without damage to nail, subsequent encounter; S61.202D Unspecified open wound of right middle finger without damage to nail, subsequent encounter; S61.002D Unspecified open wound of left thumb without damage to nail, subsequent encounter; X58.XXXD Exposure to other specified factors, subsequent encounter; E11.51 Type 2 diabetes mellitus with diabetic peripheral angiopathy without gangrene; I13.2 Hypertensive heart and chronic kidney disease with heart failure and with stage 5 chronic kidney disease, or end stage renal disease; E11.22 Type 2 diabetes mellitus with diabetic chronic kidney disease; N18.6 End stage renal disease; I50.9 Heart failure, unspecified; E03.9 Hypothyroidism, unspecified; G47.33 Obstructive sleep apnea (adult) (pediatric) ==

== ENCOUNTER 2024-04-11 02:39 | Day surgery (SDC) | payer MEDICARE, OTHER | END 2024-04-11 22:59 | disposition home or self-care (01) | LOC: WOUND 02:39 | DX: E11.621 Type 2 diabetes mellitus with foot ulcer (principal); L97.524 Non-pressure chronic ulcer of other part of left foot with necrosis of bone; S61.401D Unspecified open wound of right hand, subsequent encounter; S61.402D Unspecified open wound of left hand, subsequent encounter; I87.312 Chronic venous hypertension (idiopathic) with ulcer of left lower extremity; E11.622 Type 2 diabetes mellitus with other skin ulcer; L25.9 Unspecified contact dermatitis, unspecified cause; I87.2 Venous insufficiency (chronic) (peripheral); E11.65 Type 2 diabetes mellitus with hyperglycemia; E11.51 Type 2 diabetes mellitus with diabetic peripheral angiopathy without gangrene; E11.69 Type 2 diabetes mellitus with other specified complication; M86.672 Other chronic osteomyelitis, left ankle and foot; E03.9 Hypothyroidism, unspecified; G47.33 Obstructive sleep apnea (adult) (pediatric); I13.0 Hypertensive heart and chronic kidney disease with heart failure and stage 1 through stage 4 chronic kidney disease, or unspecified chronic kidney disease; I50.9 Heart failure, unspecified; N18.9 Chronic kidney disease, unspecified; E11.22 Type 2 diabetes mellitus with diabetic chronic kidney disease; Z99.89 Dependence on other enabling machines and devices; X58.XXXD Exposure to other specified factors, subsequent encounter | CPT/HCPCS: G0463 ==

== ENCOUNTER 2024-04-18 01:11 | Day surgery (SDC) | payer MEDICARE, OTHER | END 2024-04-18 23:00 | disposition home or self-care (01) | LOC: WOUND 01:11 | DX: E11.621 Type 2 diabetes mellitus with foot ulcer (principal); E11.622 Type 2 diabetes mellitus with other skin ulcer; L25.9 Unspecified contact dermatitis, unspecified cause; E11.65 Type 2 diabetes mellitus with hyperglycemia; E11.51 Type 2 diabetes mellitus with diabetic peripheral angiopathy without gangrene; I87.2 Venous insufficiency (chronic) (peripheral); E11.69 Type 2 diabetes mellitus with other specified complication; M86.672 Other chronic osteomyelitis, left ankle and foot | CPT/HCPCS: G0463 ==

== ENCOUNTER 2024-04-25 05:47 | Day surgery (SDC) | payer MEDICARE, OTHER ==
[2024-04-25] MEDS ORDERED: Lidocaine HCl 4% Cream 5 GM ONE (11:30)
== END 2024-04-25 23:49 | disposition home or self-care (01) ==
LOC: WOUND
DX: E11.621 Type 2 diabetes mellitus with foot ulcer (principal); L97.522 Non-pressure chronic ulcer of other part of left foot with fat layer exposed; S61.200D Unspecified open wound of right index finger without damage to nail, subsequent encounter; S61.202D Unspecified open wound of right middle finger without damage to nail, subsequent encounter; S61.201D Unspecified open wound of left index finger without damage to nail, subsequent encounter; S61.203D Unspecified open wound of left middle finger without damage to nail, subsequent encounter; S61.401D Unspecified open wound of right hand, subsequent encounter; E11.51 Type 2 diabetes mellitus with diabetic peripheral angiopathy without gangrene; I87.2 Venous insufficiency (chronic) (peripheral); I13.0 Hypertensive heart and chronic kidney disease with heart failure and stage 1 through stage 4 chronic kidney disease, or unspecified chronic kidney disease; E11.22 Type 2 diabetes mellitus with diabetic chronic kidney disease; N18.9 Chronic kidney disease, unspecified; E03.9 Hypothyroidism, unspecified; G47.33 Obstructive sleep apnea (adult) (pediatric); Z86.718 Personal history of other venous thrombosis and embolism
CPT/HCPCS: A6196; A9270; G0463

== ENCOUNTER 2024-04-26 03:00 | Day surgery (SDC) | payer MEDICARE, OTHER | END 2024-04-26 23:00 | disposition home or self-care (01) | LOC: HBO 03:00 | DX: E11.69 Type 2 diabetes mellitus with other specified complication (principal); M86.672 Other chronic osteomyelitis, left ankle and foot; I87.2 Venous insufficiency (chronic) (peripheral); E11.51 Type 2 diabetes mellitus with diabetic peripheral angiopathy without gangrene | CPT/HCPCS: 82947; G0277 ==

== ENCOUNTER 2024-04-27 03:40 | Day surgery (SDC) | payer MEDICARE, OTHER | END 2024-04-27 23:51 | disposition home or self-care (01) | LOC: HBO 03:40 | DX: E11.69 Type 2 diabetes mellitus with other specified complication (principal); M86.672 Other chronic osteomyelitis, left ankle and foot; E11.621 Type 2 diabetes mellitus with foot ulcer; E11.622 Type 2 diabetes mellitus with other skin ulcer; I87.312 Chronic venous hypertension (idiopathic) with ulcer of left lower extremity; L25.9 Unspecified contact dermatitis, unspecified cause; E11.51 Type 2 diabetes mellitus with diabetic peripheral angiopathy without gangrene; I87.2 Venous insufficiency (chronic) (peripheral) | CPT/HCPCS: 82947; G0277 ==

== ENCOUNTER 2024-04-28 01:52 | Day surgery (SDC) | payer MEDICARE, OTHER | END 2024-04-28 23:00 | disposition home or self-care (01) | LOC: HBO 01:52 | DX: E11.69 Type 2 diabetes mellitus with other specified complication (principal); M86.672 Other chronic osteomyelitis, left ankle and foot; E11.621 Type 2 diabetes mellitus with foot ulcer; E11.622 Type 2 diabetes mellitus with other skin ulcer; I87.312 Chronic venous hypertension (idiopathic) with ulcer of left lower extremity; L25.9 Unspecified contact dermatitis, unspecified cause; E11.51 Type 2 diabetes mellitus with diabetic peripheral angiopathy without gangrene; I87.2 Venous insufficiency (chronic) (peripheral) | CPT/HCPCS: 82947; G0277 ==

== ENCOUNTER 2024-04-29 03:57 | Day surgery (SDC) | payer MEDICARE, OTHER | END 2024-04-29 23:00 | disposition home or self-care (01) | LOC: HBO 03:57 | DX: I87.312 Chronic venous hypertension (idiopathic) with ulcer of left lower extremity (principal); E11.621 Type 2 diabetes mellitus with foot ulcer; E11.622 Type 2 diabetes mellitus with other skin ulcer; E11.69 Type 2 diabetes mellitus with other specified complication; E11.51 Type 2 diabetes mellitus with diabetic peripheral angiopathy without gangrene; I87.2 Venous insufficiency (chronic) (peripheral); M86.672 Other chronic osteomyelitis, left ankle and foot; L25.9 Unspecified contact dermatitis, unspecified cause | CPT/HCPCS: 82947 ==

== ENCOUNTER 2024-05-02 03:15 | Day surgery (SDC) | payer MEDICARE, OTHER | END 2024-05-02 23:00 | disposition home or self-care (01) | LOC: WOUND 03:15 | DX: E11.621 Type 2 diabetes mellitus with foot ulcer (principal); L97.522 Non-pressure chronic ulcer of other part of left foot with fat layer exposed; S61.200D Unspecified open wound of right index finger without damage to nail, subsequent encounter; S61.202D Unspecified open wound of right middle finger without damage to nail, subsequent encounter; E11.622 Type 2 diabetes mellitus with other skin ulcer; E11.51 Type 2 diabetes mellitus with diabetic peripheral angiopathy without gangrene; E11.65 Type 2 diabetes mellitus with hyperglycemia; E11.69 Type 2 diabetes mellitus with other specified complication; M86.672 Other chronic osteomyelitis, left ankle and foot; I87.312 Chronic venous hypertension (idiopathic) with ulcer of left lower extremity; I87.2 Venous insufficiency (chronic) (peripheral); L25.9 Unspecified contact dermatitis, unspecified cause; X58.XXXD Exposure to other specified factors, subsequent encounter | CPT/HCPCS: 82947; G0277; G0463 ==

== ENCOUNTER 2024-05-02 08:00 | Day surgery (SDC) | payer MEDICARE, OTHER | END 2024-05-03 23:00 | disposition home or self-care (01) | LOC: HBO 08:00 | DX: I87.312 Chronic venous hypertension (idiopathic) with ulcer of left lower extremity (principal); E11.621 Type 2 diabetes mellitus with foot ulcer; E11.622 Type 2 diabetes mellitus with other skin ulcer; L25.9 Unspecified contact dermatitis, unspecified cause; E11.51 Type 2 diabetes mellitus with diabetic peripheral angiopathy without gangrene; I87.2 Venous insufficiency (chronic) (peripheral); E11.69 Type 2 diabetes mellitus with other specified complication; M86.672 Other chronic osteomyelitis, left ankle and foot | CPT/HCPCS: 82947; G0277 ==

== ENCOUNTER 2024-05-03 04:43 | Day surgery (SDC) | payer MEDICARE, OTHER | END 2024-05-03 23:00 | disposition home or self-care (01) | LOC: HBO 04:43 | DX: I87.312 Chronic venous hypertension (idiopathic) with ulcer of left lower extremity (principal); E11.621 Type 2 diabetes mellitus with foot ulcer; E11.622 Type 2 diabetes mellitus with other skin ulcer; L25.9 Unspecified contact dermatitis, unspecified cause; E11.65 Type 2 diabetes mellitus with hyperglycemia; E11.51 Type 2 diabetes mellitus with diabetic peripheral angiopathy without gangrene; E11.69 Type 2 diabetes mellitus with other specified complication; I87.2 Venous insufficiency (chronic) (peripheral); M86.672 Other chronic osteomyelitis, left ankle and foot | CPT/HCPCS: 82947; G0277 ==

== ENCOUNTER 2024-05-04 05:42 | Day surgery (SDC) | payer MEDICARE, OTHER | END 2024-05-04 23:00 | disposition home or self-care (01) | LOC: HBO 05:42 | DX: E11.69 Type 2 diabetes mellitus with other specified complication (principal); M86.672 Other chronic osteomyelitis, left ankle and foot; E11.51 Type 2 diabetes mellitus with diabetic peripheral angiopathy without gangrene; I87.2 Venous insufficiency (chronic) (peripheral) | CPT/HCPCS: 82947; G0277 ==

== ENCOUNTER 2024-05-05 05:39 | Day surgery (SDC) | payer MEDICARE, OTHER | END 2024-05-05 23:00 | disposition home or self-care (01) | LOC: HBO 05:39 → WOUND 10:55 → HBO 10:57 | DX: E11.69 Type 2 diabetes mellitus with other specified complication (principal); M86.672 Other chronic osteomyelitis, left ankle and foot; E11.51 Type 2 diabetes mellitus with diabetic peripheral angiopathy without gangrene; I87.2 Venous insufficiency (chronic) (peripheral) | CPT/HCPCS: 82947; G0277 ==

== ENCOUNTER 2024-05-06 06:22 | Day surgery (SDC) | payer MEDICARE, OTHER | END 2024-05-06 23:00 | disposition home or self-care (01) | LOC: HBO 06:22 | DX: E11.69 Type 2 diabetes mellitus with other specified complication (principal); M86.672 Other chronic osteomyelitis, left ankle and foot; E11.621 Type 2 diabetes mellitus with foot ulcer; E11.622 Type 2 diabetes mellitus with other skin ulcer; I87.312 Chronic venous hypertension (idiopathic) with ulcer of left lower extremity; L25.9 Unspecified contact dermatitis, unspecified cause; E11.51 Type 2 diabetes mellitus with diabetic peripheral angiopathy without gangrene; I87.2 Venous insufficiency (chronic) (peripheral) | CPT/HCPCS: 82947; G0277 ==

== ENCOUNTER 2024-05-19 04:50 | Day surgery (SDC) | payer MEDICARE, OTHER | END 2024-05-19 23:00 | disposition home or self-care (01) | LOC: HBO 04:50 | DX: I87.312 Chronic venous hypertension (idiopathic) with ulcer of left lower extremity (principal); E11.621 Type 2 diabetes mellitus with foot ulcer; E11.622 Type 2 diabetes mellitus with other skin ulcer; E11.65 Type 2 diabetes mellitus with hyperglycemia; E11.51 Type 2 diabetes mellitus with diabetic peripheral angiopathy without gangrene; E11.59 Type 2 diabetes mellitus with other circulatory complications; L25.9 Unspecified contact dermatitis, unspecified cause; M86.672 Other chronic osteomyelitis, left ankle and foot; I87.2 Venous insufficiency (chronic) (peripheral) | CPT/HCPCS: 82947; G0277 ==

== ENCOUNTER 2024-05-20 04:36 | Day surgery (SDC) | payer MEDICARE, OTHER | END 2024-05-20 23:00 | disposition home or self-care (01) | LOC: HBO 04:36 | DX: E11.69 Type 2 diabetes mellitus with other specified complication (principal); M86.672 Other chronic osteomyelitis, left ankle and foot; E11.51 Type 2 diabetes mellitus with diabetic peripheral angiopathy without gangrene; I87.2 Venous insufficiency (chronic) (peripheral) | CPT/HCPCS: 82947; G0277 ==

== ENCOUNTER 2024-05-23 03:38 | Day surgery (SDC) | payer MEDICARE, OTHER | END 2024-05-23 23:00 | disposition home or self-care (01) | LOC: HBO 03:38 | DX: E11.69 Type 2 diabetes mellitus with other specified complication (principal); M86.672 Other chronic osteomyelitis, left ankle and foot; E11.51 Type 2 diabetes mellitus with diabetic peripheral angiopathy without gangrene; I87.2 Venous insufficiency (chronic) (peripheral) | CPT/HCPCS: 82947; G0277 ==

== ENCOUNTER 2024-05-23 03:42 | Day surgery (SDC) | payer MEDICARE, OTHER | END 2024-05-23 23:00 | disposition home or self-care (01) | LOC: WOUND 03:42 | DX: S61.202D Unspecified open wound of right middle finger without damage to nail, subsequent encounter (principal); S61.203D Unspecified open wound of left middle finger without damage to nail, subsequent encounter; E11.69 Type 2 diabetes mellitus with other specified complication; M86.672 Other chronic osteomyelitis, left ankle and foot; E11.51 Type 2 diabetes mellitus with diabetic peripheral angiopathy without gangrene; I13.0 Hypertensive heart and chronic kidney disease with heart failure and stage 1 through stage 4 chronic kidney disease, or unspecified chronic kidney disease; E11.22 Type 2 diabetes mellitus with diabetic chronic kidney disease; N18.9 Chronic kidney disease, unspecified; I50.9 Heart failure, unspecified; E03.9 Hypothyroidism, unspecified; G47.33 Obstructive sleep apnea (adult) (pediatric); Z86.718 Personal history of other venous thrombosis and embolism | CPT/HCPCS: 82947; G0277; G0463 ==

== ENCOUNTER 2024-05-24 06:02 | Day surgery (SDC) | payer MEDICARE, OTHER | END 2024-05-24 23:00 | disposition home or self-care (01) | LOC: HBO 06:02 | DX: E11.69 Type 2 diabetes mellitus with other specified complication (principal); M86.672 Other chronic osteomyelitis, left ankle and foot; E11.51 Type 2 diabetes mellitus with diabetic peripheral angiopathy without gangrene; I87.2 Venous insufficiency (chronic) (peripheral) | CPT/HCPCS: 82947; G0277 ==

== ENCOUNTER 2024-05-25 00:56 | Day surgery (SDC) | payer MEDICARE, OTHER | END 2024-05-25 23:00 | disposition home or self-care (01) | LOC: HBO 00:56 | DX: I87.312 Chronic venous hypertension (idiopathic) with ulcer of left lower extremity (principal); E11.621 Type 2 diabetes mellitus with foot ulcer; E11.622 Type 2 diabetes mellitus with other skin ulcer; E11.65 Type 2 diabetes mellitus with hyperglycemia; E11.51 Type 2 diabetes mellitus with diabetic peripheral angiopathy without gangrene; E11.69 Type 2 diabetes mellitus with other specified complication; L25.9 Unspecified contact dermatitis, unspecified cause; I87.2 Venous insufficiency (chronic) (peripheral); M86.672 Other chronic osteomyelitis, left ankle and foot; L98.499 Non-pressure chronic ulcer of skin of other sites with unspecified severity | CPT/HCPCS: 73140; 82947; G0277 ==

== ENCOUNTER 2024-05-26 04:40 | Day surgery (SDC) | payer MEDICARE, OTHER | END 2024-05-26 23:59 | disposition home or self-care (01) | LOC: HBO 04:40 | DX: E11.621 Type 2 diabetes mellitus with foot ulcer (principal); E11.622 Type 2 diabetes mellitus with other skin ulcer; I87.312 Chronic venous hypertension (idiopathic) with ulcer of left lower extremity; L25.9 Unspecified contact dermatitis, unspecified cause; E11.65 Type 2 diabetes mellitus with hyperglycemia; E11.51 Type 2 diabetes mellitus with diabetic peripheral angiopathy without gangrene; I87.2 Venous insufficiency (chronic) (peripheral); E11.69 Type 2 diabetes mellitus with other specified complication; M86.672 Other chronic osteomyelitis, left ankle and foot | CPT/HCPCS: 82947; G0277 ==

== ENCOUNTER 2024-05-27 06:26 | Day surgery (SDC) | payer MEDICARE, OTHER | END 2024-05-27 23:00 | disposition home or self-care (01) | LOC: HBO 06:26 | DX: E11.69 Type 2 diabetes mellitus with other specified complication (principal); M86.672 Other chronic osteomyelitis, left ankle and foot; E11.51 Type 2 diabetes mellitus with diabetic peripheral angiopathy without gangrene; I87.2 Venous insufficiency (chronic) (peripheral) | CPT/HCPCS: 82947; G0277 ==

== ENCOUNTER 2024-05-30 04:35 | Day surgery (SDC) | payer MEDICARE, OTHER | END 2024-05-30 23:00 | disposition home or self-care (01) | LOC: WOUND 04:35 | DX: S60.422D Blister (nonthermal) of right middle finger, subsequent encounter (principal); S60.423D Blister (nonthermal) of left middle finger, subsequent encounter; X58.XXXD Exposure to other specified factors, subsequent encounter; E11.69 Type 2 diabetes mellitus with other specified complication; M86.672 Other chronic osteomyelitis, left ankle and foot; E11.51 Type 2 diabetes mellitus with diabetic peripheral angiopathy without gangrene; I87.2 Venous insufficiency (chronic) (peripheral); I13.0 Hypertensive heart and chronic kidney disease with heart failure and stage 1 through stage 4 chronic kidney disease, or unspecified chronic kidney disease; E11.22 Type 2 diabetes mellitus with diabetic chronic kidney disease; N18.9 Chronic kidney disease, unspecified; I50.9 Heart failure, unspecified; G47.33 Obstructive sleep apnea (adult) (pediatric) | CPT/HCPCS: 82947; G0277; G0463 ==

== ENCOUNTER 2024-05-30 04:44 | Day surgery (SDC) | payer MEDICARE, OTHER | END 2024-05-30 23:00 | disposition home or self-care (01) | LOC: HBO 04:44 | DX: E11.69 Type 2 diabetes mellitus with other specified complication (principal); M86.672 Other chronic osteomyelitis, left ankle and foot; E11.51 Type 2 diabetes mellitus with diabetic peripheral angiopathy without gangrene; I87.2 Venous insufficiency (chronic) (peripheral) | CPT/HCPCS: 82947; G0277 ==

== ENCOUNTER 2024-05-31 08:10 | Day surgery (SDC) | payer MEDICARE, OTHER | END 2024-05-31 23:00 | disposition home or self-care (01) | LOC: HBO 08:10 | DX: I87.312 Chronic venous hypertension (idiopathic) with ulcer of left lower extremity (principal); E11.621 Type 2 diabetes mellitus with foot ulcer; E11.69 Type 2 diabetes mellitus with other specified complication; E11.622 Type 2 diabetes mellitus with other skin ulcer; E11.65 Type 2 diabetes mellitus with hyperglycemia; E11.51 Type 2 diabetes mellitus with diabetic peripheral angiopathy without gangrene; L25.9 Unspecified contact dermatitis, unspecified cause; I87.2 Venous insufficiency (chronic) (peripheral) | CPT/HCPCS: 36415; 80053; 82947; 83036; G0277 ==

== ENCOUNTER 2024-06-02 02:07 | Day surgery (SDC) | payer MEDICARE, OTHER | END 2024-06-02 23:00 | disposition home or self-care (01) | LOC: HBO | DX: E11.69 Type 2 diabetes mellitus with other specified complication (principal); M86.672 Other chronic osteomyelitis, left ankle and foot; E11.51 Type 2 diabetes mellitus with diabetic peripheral angiopathy without gangrene; I87.2 Venous insufficiency (chronic) (peripheral) | CPT/HCPCS: 82947; G0277 ==

== ENCOUNTER 2024-06-06 04:19 | Day surgery (SDC) | payer MEDICARE, OTHER | END 2024-06-06 23:00 | disposition home or self-care (01) | LOC: HBO 04:19 | DX: E11.69 Type 2 diabetes mellitus with other specified complication (principal); M86.672 Other chronic osteomyelitis, left ankle and foot; E11.51 Type 2 diabetes mellitus with diabetic peripheral angiopathy without gangrene; I87.2 Venous insufficiency (chronic) (peripheral) | CPT/HCPCS: 82947; G0277 ==

== ENCOUNTER 2024-06-08 05:40 | Day surgery (SDC) | payer MEDICARE, OTHER | END 2024-06-08 23:00 | disposition home or self-care (01) | LOC: HBO 05:40 | DX: E11.621 Type 2 diabetes mellitus with foot ulcer (principal); E11.622 Type 2 diabetes mellitus with other skin ulcer; I87.312 Chronic venous hypertension (idiopathic) with ulcer of left lower extremity; L25.9 Unspecified contact dermatitis, unspecified cause; E11.65 Type 2 diabetes mellitus with hyperglycemia; E11.51 Type 2 diabetes mellitus with diabetic peripheral angiopathy without gangrene; E11.69 Type 2 diabetes mellitus with other specified complication; I87.2 Venous insufficiency (chronic) (peripheral) | CPT/HCPCS: 82947; G0277 ==

== ENCOUNTER → 2024-06-08 | Outpatient (CLI) | payer MEDICARE, OTHER ==
[2024-06-08 16:02] LABS: Source, Urine Clean Catch
[2024-06-08 20:43] LABS: Bacteria Many /hpf; Squamous Epithelial Cells Rare /hpf (Few)
== END ==
LOC: LAB SHORT 15:55 → LAB 15:55
PROVIDERS: Family Medicine
DX: R31.0 Gross hematuria (principal)
CPT/HCPCS: 81015; 87086; 87147; 88108

== ENCOUNTER 2024-06-09 04:43 | Day surgery (SDC) | payer MEDICARE, OTHER | END 2024-06-13 23:00 | disposition home or self-care (01) | LOC: HBO | DX: I87.312 Chronic venous hypertension (idiopathic) with ulcer of left lower extremity (principal); E11.621 Type 2 diabetes mellitus with foot ulcer; E11.622 Type 2 diabetes mellitus with other skin ulcer; E11.65 Type 2 diabetes mellitus with hyperglycemia; E11.51 Type 2 diabetes mellitus with diabetic peripheral angiopathy without gangrene; E11.69 Type 2 diabetes mellitus with other specified complication; L25.9 Unspecified contact dermatitis, unspecified cause; I73.9 Peripheral vascular disease, unspecified; I87.2 Venous insufficiency (chronic) (peripheral); M86.672 Other chronic osteomyelitis, left ankle and foot | CPT/HCPCS: 36415; 82947; 85651; 86140; G0277 ==

== ENCOUNTER 2024-06-10 03:32 | Day surgery (SDC) | payer MEDICARE, OTHER | END 2024-06-10 23:00 | disposition home or self-care (01) | LOC: HBO | DX: E11.69 Type 2 diabetes mellitus with other specified complication (principal); M86.672 Other chronic osteomyelitis, left ankle and foot; E11.51 Type 2 diabetes mellitus with diabetic peripheral angiopathy without gangrene; I87.2 Venous insufficiency (chronic) (peripheral) | CPT/HCPCS: 82947; G0277 ==

== ENCOUNTER 2024-06-13 06:21 | Day surgery (SDC) | payer MEDICARE, OTHER | END 2024-06-13 23:00 | disposition home or self-care (01) | LOC: WOUND 06:21 | DX: S61.401D Unspecified open wound of right hand, subsequent encounter (principal); S91.109D Unspecified open wound of unspecified toe(s) without damage to nail, subsequent encounter; G47.33 Obstructive sleep apnea (adult) (pediatric); E11.22 Type 2 diabetes mellitus with diabetic chronic kidney disease; I13.0 Hypertensive heart and chronic kidney disease with heart failure and stage 1 through stage 4 chronic kidney disease, or unspecified chronic kidney disease; N18.9 Chronic kidney disease, unspecified; I50.9 Heart failure, unspecified; E03.9 Hypothyroidism, unspecified; E11.621 Type 2 diabetes mellitus with foot ulcer; E11.622 Type 2 diabetes mellitus with other skin ulcer; I87.312 Chronic venous hypertension (idiopathic) with ulcer of left lower extremity; E11.65 Type 2 diabetes mellitus with hyperglycemia; E11.51 Type 2 diabetes mellitus with diabetic peripheral angiopathy without gangrene; E11.69 Type 2 diabetes mellitus with other specified complication; M86.672 Other chronic osteomyelitis, left ankle and foot; L25.9 Unspecified contact dermatitis, unspecified cause; I87.2 Venous insufficiency (chronic) (peripheral); Z99.89 Dependence on other enabling machines and devices; X58.XXXD Exposure to other specified factors, subsequent encounter | CPT/HCPCS: 82947; G0277; G0463 ==

== ENCOUNTER 2024-06-13 06:26 | Day surgery (SDC) | payer MEDICARE, OTHER | END 2024-06-13 23:00 | disposition home or self-care (01) | LOC: HBO 06:26 | DX: E11.69 Type 2 diabetes mellitus with other specified complication (principal); M86.672 Other chronic osteomyelitis, left ankle and foot; E11.51 Type 2 diabetes mellitus with diabetic peripheral angiopathy without gangrene; I87.2 Venous insufficiency (chronic) (peripheral) | CPT/HCPCS: 82947; G0277 ==

== ENCOUNTER 2024-06-14 | Day surgery (SDC) | payer MEDICARE, OTHER | END 2024-06-14 23:00 | disposition home or self-care (01) | LOC: HBO | DX: I87.312 Chronic venous hypertension (idiopathic) with ulcer of left lower extremity (principal); E11.621 Type 2 diabetes mellitus with foot ulcer; E11.622 Type 2 diabetes mellitus with other skin ulcer; E11.65 Type 2 diabetes mellitus with hyperglycemia; E11.51 Type 2 diabetes mellitus with diabetic peripheral angiopathy without gangrene; E11.69 Type 2 diabetes mellitus with other specified complication; L25.9 Unspecified contact dermatitis, unspecified cause; I87.2 Venous insufficiency (chronic) (peripheral); M86.672 Other chronic osteomyelitis, left ankle and foot | CPT/HCPCS: 82947; G0277 ==

== ENCOUNTER 2024-06-15 03:15 | Day surgery (SDC) | payer MEDICARE, OTHER | END 2024-06-15 22:00 | disposition home or self-care (01) | LOC: HBO 03:15 | DX: E11.69 Type 2 diabetes mellitus with other specified complication (principal); M86.672 Other chronic osteomyelitis, left ankle and foot; E11.51 Type 2 diabetes mellitus with diabetic peripheral angiopathy without gangrene; I87.2 Venous insufficiency (chronic) (peripheral) | CPT/HCPCS: 82947; G0277 ==

== ENCOUNTER 2024-06-16 01:41 | Day surgery (SDC) | payer MEDICARE, OTHER | END 2024-06-16 23:00 | disposition home or self-care (01) | LOC: HBO 01:41 | DX: I87.312 Chronic venous hypertension (idiopathic) with ulcer of left lower extremity (principal); E11.621 Type 2 diabetes mellitus with foot ulcer; E11.622 Type 2 diabetes mellitus with other skin ulcer; E11.65 Type 2 diabetes mellitus with hyperglycemia; E11.59 Type 2 diabetes mellitus with other circulatory complications; M86.672 Other chronic osteomyelitis, left ankle and foot; L25.9 Unspecified contact dermatitis, unspecified cause; I87.2 Venous insufficiency (chronic) (peripheral) | CPT/HCPCS: 82947 ==

== ENCOUNTER 2024-06-17 06:28 | Day surgery (SDC) | payer MEDICARE, OTHER | END 2024-06-17 23:00 | disposition home or self-care (01) | LOC: HBO 06:28 | DX: I87.312 Chronic venous hypertension (idiopathic) with ulcer of left lower extremity (principal); E11.621 Type 2 diabetes mellitus with foot ulcer; E11.622 Type 2 diabetes mellitus with other skin ulcer; L25.9 Unspecified contact dermatitis, unspecified cause; E11.65 Type 2 diabetes mellitus with hyperglycemia; E11.51 Type 2 diabetes mellitus with diabetic peripheral angiopathy without gangrene; I87.2 Venous insufficiency (chronic) (peripheral); M86.672 Other chronic osteomyelitis, left ankle and foot; E11.69 Type 2 diabetes mellitus with other specified complication; E11.59 Type 2 diabetes mellitus with other circulatory complications | CPT/HCPCS: 82947; G0277 ==

== ENCOUNTER 2024-06-21 02:23 | Day surgery (SDC) | payer MEDICARE, OTHER | END 2024-06-21 23:00 | disposition home or self-care (01) | LOC: HBO 02:23 | DX: E11.621 Type 2 diabetes mellitus with foot ulcer (principal); E11.622 Type 2 diabetes mellitus with other skin ulcer; I87.312 Chronic venous hypertension (idiopathic) with ulcer of left lower extremity; L25.9 Unspecified contact dermatitis, unspecified cause; E11.65 Type 2 diabetes mellitus with hyperglycemia; E11.51 Type 2 diabetes mellitus with diabetic peripheral angiopathy without gangrene; I87.2 Venous insufficiency (chronic) (peripheral); M86.672 Other chronic osteomyelitis, left ankle and foot | CPT/HCPCS: 82947; G0277 ==

== ENCOUNTER 2024-06-22 06:06 | Day surgery (SDC) | payer MEDICARE, OTHER | END 2024-06-22 23:00 | disposition home or self-care (01) | LOC: WOUND 06:06 | DX: I87.312 Chronic venous hypertension (idiopathic) with ulcer of left lower extremity (principal); E11.621 Type 2 diabetes mellitus with foot ulcer; E11.622 Type 2 diabetes mellitus with other skin ulcer; L25.9 Unspecified contact dermatitis, unspecified cause; E11.65 Type 2 diabetes mellitus with hyperglycemia; E11.51 Type 2 diabetes mellitus with diabetic peripheral angiopathy without gangrene; E11.69 Type 2 diabetes mellitus with other specified complication; I87.2 Venous insufficiency (chronic) (peripheral); E03.9 Hypothyroidism, unspecified; G47.33 Obstructive sleep apnea (adult) (pediatric); E11.22 Type 2 diabetes mellitus with diabetic chronic kidney disease; I13.0 Hypertensive heart and chronic kidney disease with heart failure and stage 1 through stage 4 chronic kidney disease, or unspecified chronic kidney disease; N18.9 Chronic kidney disease, unspecified; I50.9 Heart failure, unspecified; Z99.89 Dependence on other enabling machines and devices | CPT/HCPCS: G0463 ==

== ENCOUNTER 2024-06-22 08:00 | Day surgery (SDC) | payer MEDICARE, OTHER | END 2024-06-22 23:00 | disposition home or self-care (01) | LOC: HBO 08:00 | DX: I87.312 Chronic venous hypertension (idiopathic) with ulcer of left lower extremity (principal); E11.621 Type 2 diabetes mellitus with foot ulcer; E11.622 Type 2 diabetes mellitus with other skin ulcer; L25.9 Unspecified contact dermatitis, unspecified cause; E11.65 Type 2 diabetes mellitus with hyperglycemia; E11.51 Type 2 diabetes mellitus with diabetic peripheral angiopathy without gangrene; E11.69 Type 2 diabetes mellitus with other specified complication; M86.672 Other chronic osteomyelitis, left ankle and foot; I87.2 Venous insufficiency (chronic) (peripheral); G47.33 Obstructive sleep apnea (adult) (pediatric); E11.22 Type 2 diabetes mellitus with diabetic chronic kidney disease; I13.0 Hypertensive heart and chronic kidney disease with heart failure and stage 1 through stage 4 chronic kidney disease, or unspecified chronic kidney disease; N18.9 Chronic kidney disease, unspecified; I50.9 Heart failure, unspecified; Z99.89 Dependence on other enabling machines and devices | CPT/HCPCS: 82947; G0277; G0463 ==

== ENCOUNTER 2024-06-24 04:48 | Day surgery (SDC) | payer MEDICARE, OTHER | END 2024-06-24 23:00 | disposition home or self-care (01) | LOC: HBO 04:48 | DX: I87.312 Chronic venous hypertension (idiopathic) with ulcer of left lower extremity (principal); E11.621 Type 2 diabetes mellitus with foot ulcer; E11.622 Type 2 diabetes mellitus with other skin ulcer; E11.65 Type 2 diabetes mellitus with hyperglycemia; E11.51 Type 2 diabetes mellitus with diabetic peripheral angiopathy without gangrene; E11.69 Type 2 diabetes mellitus with other specified complication; M86.672 Other chronic osteomyelitis, left ankle and foot; L25.9 Unspecified contact dermatitis, unspecified cause; I87.2 Venous insufficiency (chronic) (peripheral) | CPT/HCPCS: 82947; G0277 ==

== ENCOUNTER 2024-06-27 01:25 | Day surgery (SDC) | payer MEDICARE, OTHER | END 2024-06-27 23:00 | disposition home or self-care (01) | LOC: HBO 01:25 | DX: I87.312 Chronic venous hypertension (idiopathic) with ulcer of left lower extremity (principal); E11.621 Type 2 diabetes mellitus with foot ulcer; E11.622 Type 2 diabetes mellitus with other skin ulcer; L25.9 Unspecified contact dermatitis, unspecified cause; E11.65 Type 2 diabetes mellitus with hyperglycemia; E11.51 Type 2 diabetes mellitus with diabetic peripheral angiopathy without gangrene; I87.2 Venous insufficiency (chronic) (peripheral); E11.69 Type 2 diabetes mellitus with other specified complication; M86.672 Other chronic osteomyelitis, left ankle and foot | CPT/HCPCS: 82947; G0277 ==

== ENCOUNTER 2024-06-28 09:32 | Day surgery (SDC) | payer MEDICARE, OTHER | END 2024-06-28 23:00 | disposition home or self-care (01) | LOC: HBO 09:32 | DX: E11.69 Type 2 diabetes mellitus with other specified complication (principal); M86.672 Other chronic osteomyelitis, left ankle and foot; E11.51 Type 2 diabetes mellitus with diabetic peripheral angiopathy without gangrene; I87.2 Venous insufficiency (chronic) (peripheral); S61.201D Unspecified open wound of left index finger without damage to nail, subsequent encounter; S61.202D Unspecified open wound of right middle finger without damage to nail, subsequent encounter; S91.105D Unspecified open wound of left lesser toe(s) without damage to nail, subsequent encounter; X58.XXXD Exposure to other specified factors, subsequent encounter; I13.0 Hypertensive heart and chronic kidney disease with heart failure and stage 1 through stage 4 chronic kidney disease, or unspecified chronic kidney disease; E11.22 Type 2 diabetes mellitus with diabetic chronic kidney disease; N18.9 Chronic kidney disease, unspecified; I50.9 Heart failure, unspecified; E03.9 Hypothyroidism, unspecified; G47.33 Obstructive sleep apnea (adult) (pediatric); Z86.718 Personal history of other venous thrombosis and embolism | CPT/HCPCS: 82947; G0277; G0463 ==

== ENCOUNTER 2024-06-28 09:36 | Day surgery (SDC) | payer MEDICARE, OTHER | END 2024-06-28 23:00 | disposition home or self-care (01) | LOC: WOUND 09:36 | DX: S61.201D Unspecified open wound of left index finger without damage to nail, subsequent encounter (principal); S61.202D Unspecified open wound of right middle finger without damage to nail, subsequent encounter; S91.105D Unspecified open wound of left lesser toe(s) without damage to nail, subsequent encounter; X58.XXXD Exposure to other specified factors, subsequent encounter; E11.69 Type 2 diabetes mellitus with other specified complication; M86.672 Other chronic osteomyelitis, left ankle and foot; E11.51 Type 2 diabetes mellitus with diabetic peripheral angiopathy without gangrene; I87.2 Venous insufficiency (chronic) (peripheral); I13.0 Hypertensive heart and chronic kidney disease with heart failure and stage 1 through stage 4 chronic kidney disease, or unspecified chronic kidney disease; E11.22 Type 2 diabetes mellitus with diabetic chronic kidney disease; N18.9 Chronic kidney disease, unspecified; I50.9 Heart failure, unspecified; E03.9 Hypothyroidism, unspecified; G47.33 Obstructive sleep apnea (adult) (pediatric); Z86.718 Personal history of other venous thrombosis and embolism | CPT/HCPCS: 82947; G0463 ==

== ENCOUNTER 2024-06-29 02:02 | Day surgery (SDC) | payer MEDICARE, OTHER | END 2024-06-29 23:00 | disposition home or self-care (01) | LOC: HBO 02:02 | DX: E11.69 Type 2 diabetes mellitus with other specified complication (principal); M86.672 Other chronic osteomyelitis, left ankle and foot; E11.51 Type 2 diabetes mellitus with diabetic peripheral angiopathy without gangrene; I87.2 Venous insufficiency (chronic) (peripheral) | CPT/HCPCS: 82947; G0277 ==

== ENCOUNTER 2024-07-01 00:53 | Day surgery (SDC) | payer MEDICARE, OTHER | END 2024-07-01 23:00 | disposition home or self-care (01) | LOC: HBO 00:53 | DX: E11.69 Type 2 diabetes mellitus with other specified complication (principal); M86.672 Other chronic osteomyelitis, left ankle and foot; E11.51 Type 2 diabetes mellitus with diabetic peripheral angiopathy without gangrene; I87.2 Venous insufficiency (chronic) (peripheral) | CPT/HCPCS: 82947; G0277 ==

== ENCOUNTER 2024-07-04 00:55 | Day surgery (SDC) | payer MEDICARE, OTHER | END 2024-07-04 23:00 | disposition home or self-care (01) | LOC: HBO 00:55 | DX: E11.69 Type 2 diabetes mellitus with other specified complication (principal); M86.672 Other chronic osteomyelitis, left ankle and foot; E11.621 Type 2 diabetes mellitus with foot ulcer; E11.622 Type 2 diabetes mellitus with other skin ulcer; I87.312 Chronic venous hypertension (idiopathic) with ulcer of left lower extremity; L25.9 Unspecified contact dermatitis, unspecified cause; E11.51 Type 2 diabetes mellitus with diabetic peripheral angiopathy without gangrene; I87.2 Venous insufficiency (chronic) (peripheral) | CPT/HCPCS: 82947; G0277 ==

== ENCOUNTER 2024-07-05 00:36 | Day surgery (SDC) | payer MEDICARE, OTHER | END 2024-07-05 22:48 | disposition home or self-care (01) | LOC: HBO 00:36 | DX: E11.69 Type 2 diabetes mellitus with other specified complication (principal); M86.672 Other chronic osteomyelitis, left ankle and foot; E11.621 Type 2 diabetes mellitus with foot ulcer; E11.622 Type 2 diabetes mellitus with other skin ulcer; I87.312 Chronic venous hypertension (idiopathic) with ulcer of left lower extremity; L25.9 Unspecified contact dermatitis, unspecified cause; E11.51 Type 2 diabetes mellitus with diabetic peripheral angiopathy without gangrene; I87.2 Venous insufficiency (chronic) (peripheral); E11.65 Type 2 diabetes mellitus with hyperglycemia; E11.22 Type 2 diabetes mellitus with diabetic chronic kidney disease; I13.0 Hypertensive heart and chronic kidney disease with heart failure and stage 1 through stage 4 chronic kidney disease, or unspecified chronic kidney disease; N18.9 Chronic kidney disease, unspecified; I50.9 Heart failure, unspecified; E03.9 Hypothyroidism, unspecified; G47.33 Obstructive sleep apnea (adult) (pediatric); Z99.89 Dependence on other enabling machines and devices | CPT/HCPCS: 82947; G0277; G0463 ==

== ENCOUNTER 2024-07-06 00:15 | Day surgery (SDC) | payer MEDICARE, OTHER | END 2024-07-06 23:57 | disposition home or self-care (01) | LOC: HBO 00:15 | DX: E11.69 Type 2 diabetes mellitus with other specified complication (principal); M86.672 Other chronic osteomyelitis, left ankle and foot; E11.51 Type 2 diabetes mellitus with diabetic peripheral angiopathy without gangrene; I87.2 Venous insufficiency (chronic) (peripheral) | CPT/HCPCS: 82947; G0277 ==

== ENCOUNTER 2024-07-07 02:32 | Day surgery (SDC) | payer MEDICARE, OTHER | END 2024-07-07 23:00 | disposition home or self-care (01) | LOC: HBO 02:32 | DX: I87.312 Chronic venous hypertension (idiopathic) with ulcer of left lower extremity (principal); E11.621 Type 2 diabetes mellitus with foot ulcer; E11.622 Type 2 diabetes mellitus with other skin ulcer; L25.9 Unspecified contact dermatitis, unspecified cause; E11.65 Type 2 diabetes mellitus with hyperglycemia; E11.51 Type 2 diabetes mellitus with diabetic peripheral angiopathy without gangrene; I87.2 Venous insufficiency (chronic) (peripheral); E11.69 Type 2 diabetes mellitus with other specified complication; M86.672 Other chronic osteomyelitis, left ankle and foot | CPT/HCPCS: 82947; G0277 ==

== ENCOUNTER 2024-07-11 01:03 | Day surgery (SDC) | payer MEDICARE, OTHER | END 2024-07-11 23:00 | disposition home or self-care (01) | LOC: WOUND 01:03 | DX: I87.312 Chronic venous hypertension (idiopathic) with ulcer of left lower extremity (principal); E11.621 Type 2 diabetes mellitus with foot ulcer; E11.622 Type 2 diabetes mellitus with other skin ulcer; L25.9 Unspecified contact dermatitis, unspecified cause; E11.65 Type 2 diabetes mellitus with hyperglycemia; E11.51 Type 2 diabetes mellitus with diabetic peripheral angiopathy without gangrene; I87.2 Venous insufficiency (chronic) (peripheral); E11.69 Type 2 diabetes mellitus with other specified complication; M86.672 Other chronic osteomyelitis, left ankle and foot | CPT/HCPCS: 82947; G0463 ==

== ENCOUNTER 2024-07-11 01:09 | Day surgery (SDC) | payer MEDICARE, OTHER | END 2024-07-11 23:00 | disposition home or self-care (01) | LOC: HBO 01:09 | DX: E11.621 Type 2 diabetes mellitus with foot ulcer (principal); E11.622 Type 2 diabetes mellitus with other skin ulcer; E11.65 Type 2 diabetes mellitus with hyperglycemia; E11.69 Type 2 diabetes mellitus with other specified complication; M86.672 Other chronic osteomyelitis, left ankle and foot; E11.51 Type 2 diabetes mellitus with diabetic peripheral angiopathy without gangrene; I87.2 Venous insufficiency (chronic) (peripheral); I87.312 Chronic venous hypertension (idiopathic) with ulcer of left lower extremity; L25.9 Unspecified contact dermatitis, unspecified cause | CPT/HCPCS: 82947; G0277; G0463 ==

== ENCOUNTER 2024-07-12 00:45 | Day surgery (SDC) | payer MEDICARE, OTHER | END 2024-07-12 23:00 | disposition home or self-care (01) | LOC: HBO 00:45 | DX: E11.69 Type 2 diabetes mellitus with other specified complication (principal); M86.672 Other chronic osteomyelitis, left ankle and foot; E11.51 Type 2 diabetes mellitus with diabetic peripheral angiopathy without gangrene; I87.2 Venous insufficiency (chronic) (peripheral) | CPT/HCPCS: 82947; G0277 ==

== ENCOUNTER 2024-07-13 01:14 | Day surgery (SDC) | payer MEDICARE, OTHER | END 2024-07-13 23:00 | LOC: HBO 01:14 | DX: I87.312 Chronic venous hypertension (idiopathic) with ulcer of left lower extremity (principal); E11.621 Type 2 diabetes mellitus with foot ulcer; E11.622 Type 2 diabetes mellitus with other skin ulcer; L25.9 Unspecified contact dermatitis, unspecified cause; E11.65 Type 2 diabetes mellitus with hyperglycemia; E11.51 Type 2 diabetes mellitus with diabetic peripheral angiopathy without gangrene; I87.2 Venous insufficiency (chronic) (peripheral); E11.69 Type 2 diabetes mellitus with other specified complication; M86.672 Other chronic osteomyelitis, left ankle and foot | CPT/HCPCS: 82947; G0277 ==

== ENCOUNTER 2024-07-14 00:58 | Day surgery (SDC) | payer MEDICARE, OTHER | END 2024-07-14 23:00 | disposition home or self-care (01) | LOC: HBO 00:58 | DX: E11.69 Type 2 diabetes mellitus with other specified complication (principal); M86.672 Other chronic osteomyelitis, left ankle and foot; E11.51 Type 2 diabetes mellitus with diabetic peripheral angiopathy without gangrene; I87.2 Venous insufficiency (chronic) (peripheral) | CPT/HCPCS: 82947; G0277 ==

== ENCOUNTER 2024-07-18 01:26 | Day surgery (SDC) | payer MEDICARE, OTHER | END 2024-07-18 23:00 | disposition home or self-care (01) | LOC: WOUND 01:26 | DX: I87.312 Chronic venous hypertension (idiopathic) with ulcer of left lower extremity (principal); E11.621 Type 2 diabetes mellitus with foot ulcer; E11.622 Type 2 diabetes mellitus with other skin ulcer; L25.9 Unspecified contact dermatitis, unspecified cause; E11.65 Type 2 diabetes mellitus with hyperglycemia; E11.51 Type 2 diabetes mellitus with diabetic peripheral angiopathy without gangrene; E11.69 Type 2 diabetes mellitus with other specified complication; M86.672 Other chronic osteomyelitis, left ankle and foot; I87.2 Venous insufficiency (chronic) (peripheral) | CPT/HCPCS: 82947 ==

== ENCOUNTER 2024-07-18 09:49 | Day surgery (SDC) | payer MEDICARE, OTHER | END 2024-07-18 23:00 | disposition home or self-care (01) | LOC: HBO 09:49 | DX: I87.312 Chronic venous hypertension (idiopathic) with ulcer of left lower extremity (principal); E11.621 Type 2 diabetes mellitus with foot ulcer; E11.622 Type 2 diabetes mellitus with other skin ulcer; E11.65 Type 2 diabetes mellitus with hyperglycemia; E11.51 Type 2 diabetes mellitus with diabetic peripheral angiopathy without gangrene; E11.69 Type 2 diabetes mellitus with other specified complication; M86.672 Other chronic osteomyelitis, left ankle and foot; L25.9 Unspecified contact dermatitis, unspecified cause; I87.2 Venous insufficiency (chronic) (peripheral) | CPT/HCPCS: 82947; G0277; G0463 ==

== ENCOUNTER 2024-07-19 00:29 | Day surgery (SDC) | payer MEDICARE, OTHER | END 2024-07-19 23:43 | disposition home or self-care (01) | LOC: HBO | DX: I87.312 Chronic venous hypertension (idiopathic) with ulcer of left lower extremity (principal); E11.621 Type 2 diabetes mellitus with foot ulcer; E11.622 Type 2 diabetes mellitus with other skin ulcer; L25.9 Unspecified contact dermatitis, unspecified cause; E11.65 Type 2 diabetes mellitus with hyperglycemia; E11.51 Type 2 diabetes mellitus with diabetic peripheral angiopathy without gangrene; I87.2 Venous insufficiency (chronic) (peripheral); E11.69 Type 2 diabetes mellitus with other specified complication; M86.672 Other chronic osteomyelitis, left ankle and foot | CPT/HCPCS: 82947; G0277 ==

== ENCOUNTER 2024-07-20 01:05 | Day surgery (SDC) | payer MEDICARE, OTHER | END 2024-07-20 23:00 | disposition home or self-care (01) | LOC: HBO 01:05 | DX: I87.312 Chronic venous hypertension (idiopathic) with ulcer of left lower extremity (principal); E11.622 Type 2 diabetes mellitus with other skin ulcer; E11.621 Type 2 diabetes mellitus with foot ulcer; L25.9 Unspecified contact dermatitis, unspecified cause; E11.65 Type 2 diabetes mellitus with hyperglycemia; E11.51 Type 2 diabetes mellitus with diabetic peripheral angiopathy without gangrene; I87.2 Venous insufficiency (chronic) (peripheral); E11.69 Type 2 diabetes mellitus with other specified complication | CPT/HCPCS: 82947; G0277 ==

== ENCOUNTER 2024-07-21 02:22 | Day surgery (SDC) | payer MEDICARE, OTHER | END 2024-07-21 23:00 | disposition home or self-care (01) | LOC: HBO 02:22 | DX: I87.312 Chronic venous hypertension (idiopathic) with ulcer of left lower extremity (principal); E11.621 Type 2 diabetes mellitus with foot ulcer; E11.622 Type 2 diabetes mellitus with other skin ulcer; E11.65 Type 2 diabetes mellitus with hyperglycemia; E11.69 Type 2 diabetes mellitus with other specified complication; E11.51 Type 2 diabetes mellitus with diabetic peripheral angiopathy without gangrene; L25.9 Unspecified contact dermatitis, unspecified cause; I87.2 Venous insufficiency (chronic) (peripheral); M86.672 Other chronic osteomyelitis, left ankle and foot | CPT/HCPCS: 82947; G0277 ==

== ENCOUNTER 2024-07-25 02:40 | Day surgery (SDC) | payer MEDICARE, OTHER | END 2024-07-25 23:00 | disposition home or self-care (01) | LOC: HBO 02:40 | DX: E11.69 Type 2 diabetes mellitus with other specified complication (principal); M86.672 Other chronic osteomyelitis, left ankle and foot; E11.51 Type 2 diabetes mellitus with diabetic peripheral angiopathy without gangrene; I87.2 Venous insufficiency (chronic) (peripheral) | CPT/HCPCS: 82947; G0277 ==

== ENCOUNTER 2024-07-27 02:42 | Day surgery (SDC) | payer MEDICARE, OTHER | END 2024-07-27 23:00 | disposition home or self-care (01) | LOC: HBO 02:42 | DX: E11.69 Type 2 diabetes mellitus with other specified complication (principal); M86.672 Other chronic osteomyelitis, left ankle and foot; E11.51 Type 2 diabetes mellitus with diabetic peripheral angiopathy without gangrene; I87.2 Venous insufficiency (chronic) (peripheral) | CPT/HCPCS: 82947; G0277 ==

== ENCOUNTER 2024-07-28 04:15 | Day surgery (SDC) | payer MEDICARE, OTHER | END 2024-07-28 23:00 | disposition home or self-care (01) | LOC: HBO 04:15 | DX: I87.312 Chronic venous hypertension (idiopathic) with ulcer of left lower extremity (principal); E11.621 Type 2 diabetes mellitus with foot ulcer; E11.622 Type 2 diabetes mellitus with other skin ulcer; E11.65 Type 2 diabetes mellitus with hyperglycemia; E11.51 Type 2 diabetes mellitus with diabetic peripheral angiopathy without gangrene; E11.69 Type 2 diabetes mellitus with other specified complication; M86.672 Other chronic osteomyelitis, left ankle and foot; I87.2 Venous insufficiency (chronic) (peripheral); L25.9 Unspecified contact dermatitis, unspecified cause | CPT/HCPCS: 82947; G0277 ==

== ENCOUNTER 2024-08-01 01:46 | Day surgery (SDC) | payer MEDICARE, OTHER | END 2024-08-01 23:18 | disposition home or self-care (01) | LOC: WOUND 01:46 | DX: S61.201D Unspecified open wound of left index finger without damage to nail, subsequent encounter (principal); X58.XXXD Exposure to other specified factors, subsequent encounter; E11.51 Type 2 diabetes mellitus with diabetic peripheral angiopathy without gangrene; I87.2 Venous insufficiency (chronic) (peripheral); E11.69 Type 2 diabetes mellitus with other specified complication; M86.672 Other chronic osteomyelitis, left ankle and foot; I12.9 Hypertensive chronic kidney disease with stage 1 through stage 4 chronic kidney disease, or unspecified chronic kidney disease; E11.22 Type 2 diabetes mellitus with diabetic chronic kidney disease; N18.9 Chronic kidney disease, unspecified; E03.9 Hypothyroidism, unspecified; G47.33 Obstructive sleep apnea (adult) (pediatric) | CPT/HCPCS: G0463 ==

== ENCOUNTER 2024-08-01 01:49 | Day surgery (SDC) | payer MEDICARE, OTHER | END 2024-08-01 23:18 | disposition home or self-care (01) | LOC: HBO 01:49 | DX: I87.312 Chronic venous hypertension (idiopathic) with ulcer of left lower extremity (principal); E11.621 Type 2 diabetes mellitus with foot ulcer; L25.9 Unspecified contact dermatitis, unspecified cause; E11.65 Type 2 diabetes mellitus with hyperglycemia; E11.51 Type 2 diabetes mellitus with diabetic peripheral angiopathy without gangrene; E11.69 Type 2 diabetes mellitus with other specified complication; I87.2 Venous insufficiency (chronic) (peripheral); S61.201D Unspecified open wound of left index finger without damage to nail, subsequent encounter; X58.XXXD Exposure to other specified factors, subsequent encounter; I12.9 Hypertensive chronic kidney disease with stage 1 through stage 4 chronic kidney disease, or unspecified chronic kidney disease; N18.9 Chronic kidney disease, unspecified; E03.9 Hypothyroidism, unspecified; G47.33 Obstructive sleep apnea (adult) (pediatric); M86.672 Other chronic osteomyelitis, left ankle and foot | CPT/HCPCS: 82947; G0277; G0463 ==

== ENCOUNTER 2024-08-02 03:54 | Day surgery (SDC) | payer MEDICARE, OTHER | END 2024-08-02 23:02 | disposition home or self-care (01) | LOC: HBO 03:54 | DX: I87.312 Chronic venous hypertension (idiopathic) with ulcer of left lower extremity (principal); E11.622 Type 2 diabetes mellitus with other skin ulcer; E11.621 Type 2 diabetes mellitus with foot ulcer; E11.65 Type 2 diabetes mellitus with hyperglycemia; E11.69 Type 2 diabetes mellitus with other specified complication; E11.51 Type 2 diabetes mellitus with diabetic peripheral angiopathy without gangrene; L25.9 Unspecified contact dermatitis, unspecified cause; I87.2 Venous insufficiency (chronic) (peripheral); M79.645 Pain in left finger(s); M19.042 Primary osteoarthritis, left hand; I12.9 Hypertensive chronic kidney disease with stage 1 through stage 4 chronic kidney disease, or unspecified chronic kidney disease; M86.672 Other chronic osteomyelitis, left ankle and foot; N18.4 Chronic kidney disease, stage 4 (severe); D63.1 Anemia in chronic kidney disease; R31.0 Gross hematuria; R80.9 Proteinuria, unspecified | CPT/HCPCS: 36415; 73130; 80053; 80069; 81015; 82043; 82570; 82728; 82947; 83540; 83550; 83970; 85025; 87077; 87086; 87186; G0277 ==

== ENCOUNTER 2024-08-03 01:46 | Day surgery (SDC) | payer MEDICARE, OTHER | END 2024-08-03 23:00 | disposition home or self-care (01) | LOC: HBO | DX: I87.312 Chronic venous hypertension (idiopathic) with ulcer of left lower extremity (principal); E11.621 Type 2 diabetes mellitus with foot ulcer; E11.622 Type 2 diabetes mellitus with other skin ulcer; L25.9 Unspecified contact dermatitis, unspecified cause; E11.69 Type 2 diabetes mellitus with other specified complication; I87.2 Venous insufficiency (chronic) (peripheral); M86.672 Other chronic osteomyelitis, left ankle and foot | CPT/HCPCS: 82947; G0277 ==

== ENCOUNTER 2024-08-04 00:56 | Day surgery (SDC) | payer MEDICARE, OTHER | END 2024-08-04 23:00 | disposition home or self-care (01) | LOC: HBO | DX: I87.312 Chronic venous hypertension (idiopathic) with ulcer of left lower extremity (principal); E11.621 Type 2 diabetes mellitus with foot ulcer; E11.622 Type 2 diabetes mellitus with other skin ulcer; L25.9 Unspecified contact dermatitis, unspecified cause; E11.65 Type 2 diabetes mellitus with hyperglycemia; E11.51 Type 2 diabetes mellitus with diabetic peripheral angiopathy without gangrene; E11.69 Type 2 diabetes mellitus with other specified complication; I87.2 Venous insufficiency (chronic) (peripheral); M86.672 Other chronic osteomyelitis, left ankle and foot | CPT/HCPCS: 82947; G0277 ==

== ENCOUNTER 2024-08-05 03:30 | Day surgery (SDC) | payer MEDICARE, OTHER | END 2024-08-05 23:00 | disposition home or self-care (01) | LOC: HBO 03:30 | DX: I87.312 Chronic venous hypertension (idiopathic) with ulcer of left lower extremity (principal); E11.621 Type 2 diabetes mellitus with foot ulcer; E11.622 Type 2 diabetes mellitus with other skin ulcer; L25.9 Unspecified contact dermatitis, unspecified cause; E11.65 Type 2 diabetes mellitus with hyperglycemia; E11.51 Type 2 diabetes mellitus with diabetic peripheral angiopathy without gangrene; E11.69 Type 2 diabetes mellitus with other specified complication; I87.2 Venous insufficiency (chronic) (peripheral); M86.672 Other chronic osteomyelitis, left ankle and foot | CPT/HCPCS: 82947; G0277 ==

== ENCOUNTER 2024-08-08 02:37 | Day surgery (SDC) | payer MEDICARE, OTHER | END 2024-08-08 22:47 | disposition home or self-care (01) | LOC: HBO 02:37 | DX: I87.312 Chronic venous hypertension (idiopathic) with ulcer of left lower extremity (principal); E11.622 Type 2 diabetes mellitus with other skin ulcer; E11.621 Type 2 diabetes mellitus with foot ulcer; L25.9 Unspecified contact dermatitis, unspecified cause; E11.65 Type 2 diabetes mellitus with hyperglycemia; E11.51 Type 2 diabetes mellitus with diabetic peripheral angiopathy without gangrene; I87.2 Venous insufficiency (chronic) (peripheral); E11.69 Type 2 diabetes mellitus with other specified complication; M86.672 Other chronic osteomyelitis, left ankle and foot | CPT/HCPCS: 82947; G0277 ==

== ENCOUNTER 2024-08-10 04:33 | Day surgery (SDC) | payer MEDICARE, OTHER | END 2024-08-10 23:00 | disposition home or self-care (01) | LOC: HBO 04:33 | DX: E11.69 Type 2 diabetes mellitus with other specified complication (principal); M86.672 Other chronic osteomyelitis, left ankle and foot; E11.621 Type 2 diabetes mellitus with foot ulcer; E11.622 Type 2 diabetes mellitus with other skin ulcer; I87.312 Chronic venous hypertension (idiopathic) with ulcer of left lower extremity; L25.9 Unspecified contact dermatitis, unspecified cause; E11.51 Type 2 diabetes mellitus with diabetic peripheral angiopathy without gangrene; I87.2 Venous insufficiency (chronic) (peripheral) | CPT/HCPCS: 82947; G0277 ==

== ENCOUNTER 2024-08-11 02:24 | Day surgery (SDC) | payer MEDICARE, OTHER | END 2024-08-11 23:00 | disposition home or self-care (01) | LOC: HBO 02:24 | DX: I87.312 Chronic venous hypertension (idiopathic) with ulcer of left lower extremity (principal); E11.621 Type 2 diabetes mellitus with foot ulcer; E11.622 Type 2 diabetes mellitus with other skin ulcer; E11.51 Type 2 diabetes mellitus with diabetic peripheral angiopathy without gangrene; E11.65 Type 2 diabetes mellitus with hyperglycemia; E11.69 Type 2 diabetes mellitus with other specified complication; I87.2 Venous insufficiency (chronic) (peripheral); M86.672 Other chronic osteomyelitis, left ankle and foot | CPT/HCPCS: 82947; G0277 ==

== ENCOUNTER 2024-08-12 04:13 | Day surgery (SDC) | payer MEDICARE, OTHER | END 2024-08-12 23:00 | disposition home or self-care (01) | LOC: HBO 04:13 | DX: E11.69 Type 2 diabetes mellitus with other specified complication (principal); M86.672 Other chronic osteomyelitis, left ankle and foot; E11.621 Type 2 diabetes mellitus with foot ulcer; E11.622 Type 2 diabetes mellitus with other skin ulcer; I87.312 Chronic venous hypertension (idiopathic) with ulcer of left lower extremity; L25.9 Unspecified contact dermatitis, unspecified cause; E11.51 Type 2 diabetes mellitus with diabetic peripheral angiopathy without gangrene; I87.2 Venous insufficiency (chronic) (peripheral) | CPT/HCPCS: 82947; G0277 ==

== ENCOUNTER 2024-08-16 02:23 | Day surgery (SDC) | payer MEDICARE, OTHER | END 2024-08-16 23:00 | disposition home or self-care (01) | LOC: WOUND 02:23 | DX: I87.312 Chronic venous hypertension (idiopathic) with ulcer of left lower extremity (principal); E11.621 Type 2 diabetes mellitus with foot ulcer; E11.622 Type 2 diabetes mellitus with other skin ulcer; L25.9 Unspecified contact dermatitis, unspecified cause; E11.65 Type 2 diabetes mellitus with hyperglycemia; E11.51 Type 2 diabetes mellitus with diabetic peripheral angiopathy without gangrene; E11.69 Type 2 diabetes mellitus with other specified complication; I87.2 Venous insufficiency (chronic) (peripheral); M86.672 Other chronic osteomyelitis, left ankle and foot | CPT/HCPCS: 73630; G0463 ==

== ENCOUNTER 2024-11-28 14:59 | Inpatient (IN) | payer MEDICARE, OTHER ==
[~2024-11-28] VITALS: Ht 180.3 cm; Wt 141.7 kg
[2024-11-28 15:48] LABS: BASOPHILS ABSOLUTE AUTO 0.05 K/mm3 (0.00-0.23); BASOPHILS PERCENT AUTO 0 % (0-2); EOSINOPHILS ABSOLUTE AUTO 0.23 K/mm3 (0.00-0.68); EOSINOPHILS PERCENT AUTO 2 % (0-6); Hematocrit 33.7 % (37.0-53.0); Hemoglobin 10.8 g/dL (13.5-17.5); IMMATURE GRAN ABSOLUTE AUTO 0.07 K/mm3 (0.00-0.10); IMMATURE GRAN PERCENT AUTO 1 % (0-1); LYMPHOCYTES ABSOLUTE AUTO 1.31 K/mm3 (0.84-5.20); LYMPHOCYTES PERCENT AUTO 11 % (21-46); MONOCYTES ABSOLUTE AUTO 1.06 K/mm3 (0.16-1.47); MONOCYTES PERCENT AUTO 9 % (4-13); Mean Corpuscular HGB Conc 32.0 g/dL (31.5-36.5); Mean Corpuscular Volume 93 fL (80-100); NEUTROPHILS ABSOLUTE AUTO 9.26 K/mm3 (1.96-9.15); NEUTROPHILS PERCENT AUTO 77 % (41-73); NRBC ABSOLUTE 0.00 K/mm3 (0.00-0.02); NRBC Auto 0.0 /100 WBC (0.0-0.2); Platelet Count 207 K/mm3 (150-400); RDW Coefficient Variation 14.8 % (11.7-14.2); RDW Standard Deviation 50.8 fL (35.1-46.3)
[2024-11-28 17:15] LABS: Alanine Aminotransfer (ALT/SGP 34.0 U/L (12-78); Albumin, Blood 2.6 g/dL (3.4-5.0); Albumin/Globulin Ratio 0.6 (0.8-1.8); Anion Gap 6.0 mmol/L (3-11); Aspartate Aminotrans (AST/SGOT 24.0 U/L (12-37); Bilirubin, Total 0.5 mg/dL (0.1-1.0); Blood Urea Nitrogen 39.0 mg/dL (8-24); CO2, Blood 27.0 mmol/L (21-32); Calcium, Blood 8.7 mg/dL (8.5-10.1); Chloride, Blood 109.0 mmol/L (98-108); Creatinine, Blood 2.08 mg/dL (0.60-1.20); Globulin, Blood 4.4 g/dL (2.2-4.0); Glucose, Blood 167.0 mg/dL (70-99); Potassium, Blood 4.3 mmol/L (3.5-5.5); Sodium, Blood 138.0 mmol/L (136-145); Total Protein, Blood 7.0 g/dL (6.4-8.2)
[2024-11-28] MEDS ORDERED: Vancomycin (Pharmacy Consult) IV PRN (17:25)
[2024-11-28] MEDS ORDERED: Cefepime HCl 1,000 MG in NS 100 ML IV ONE (17:25)
[2024-11-28] MEDS ORDERED: MetroNIDAZOLE 500MG/NS 100 ml 100 ML IV ONE (17:25)
[2024-11-28] MEDS ORDERED: Vancomycin HCL 2,500 MG in NS 500 ML IV ONE (17:35)
[2024-11-28] MEDS ORDERED: Vancomycin (Pharmacy Consult) IV SCH (18:05)
[2024-11-28] MEDS ORDERED: Ondansetron HCl 2 MG / ML 2ML Vial IV PRN (18:10)
[2024-11-28 20:20] VITALS: BP 170/77
[2024-11-28] MEDS ORDERED: Lactobacil 2-S.Thermo-Bifido 1 1 Cap PO SCH (21:00)
[2024-11-28] MEDS ORDERED: Doxazosin Mesylate 8 MG TAB PO SCH (21:00)
[2024-11-29] VITALS (13 sets, daily range): BP systolic 117–180; BP diastolic 50–94
[2024-11-29] MEDS ORDERED: MetroNIDAZOLE 500MG/NS 100 ml 100 ML IV SCH
[2024-11-29] MEDS ORDERED: Insulin Regular 100 UNIT/ML 10ML Vial SC SCH
--- NOTE | 2024-11-29 03:16 | NUR ---
PT ADMITTED TO [facility] FOR WOUNDS TO R INDEX FINGER.I NOTE NEXT FINGER ALSO APPEARS TO HAVE SOME INVOLVEMENT.PT REPORTS HAD BLISTER THAT "POPPED", AND THAT HE GOT DRESSINGS ON TOO TIGHT. PT ABLE TO WIGGLE FINGERS,RADIAL PULSES PRESENT BILAT, US WAS COMPLETED ON RUE IN PT ROOM, BUT NO RESULTS AVAILABLE AT THIS TIME.THE DISTAL PORTION OF INDEX FINGER IS DISCOLORED BLACK, WITH ESCHAR AND NECROSIS,PTS RING FINGER REDENED.PT INITALLY APPEARED FULLY A/O, BUT AFTER WENT HOME FOR NIGHT AND IT GOT DARKER, PT WITH MILD CONFUSION, DISCONNECTION OF AND PULLING ON LINES AND DEVICES.PT NOT APPEARING AGGITATED.BED ALARM ON.HAS NOT SET OFF ALARM SO FAR.PT IN ISOLATION FOR HX MRSA WOUND,C DIFF,ESBL IN URINE.
[2024-11-29 04:31] LABS: BASOPHILS ABSOLUTE AUTO 0.04 K/mm3 (0.00-0.23); BASOPHILS PERCENT AUTO 0 % (0-2); EOSINOPHILS ABSOLUTE AUTO 0.12 K/mm3 (0.00-0.68); EOSINOPHILS PERCENT AUTO 1 % (0-6); Hematocrit 31.9 % (37.0-53.0); Hemoglobin 10.1 g/dL (13.5-17.5); IMMATURE GRAN ABSOLUTE AUTO 0.06 K/mm3 (0.00-0.10); IMMATURE GRAN PERCENT AUTO 1 % (0-1); LYMPHOCYTES ABSOLUTE AUTO 0.94 K/mm3 (0.84-5.20); LYMPHOCYTES PERCENT AUTO 7 % (21-46); MONOCYTES ABSOLUTE AUTO 1.20 K/mm3 (0.16-1.47); MONOCYTES PERCENT AUTO 9 % (4-13); Mean Corpuscular HGB Conc 31.7 g/dL (31.5-36.5); Mean Corpuscular Volume 91 fL (80-100); NEUTROPHILS ABSOLUTE AUTO 10.53 K/mm3 (1.96-9.15); NEUTROPHILS PERCENT AUTO 82 % (41-73); NRBC ABSOLUTE 0.00 K/mm3 (0.00-0.02); NRBC Auto 0.0 /100 WBC (0.0-0.2); Platelet Count 178 K/mm3 (150-400); RDW Coefficient Variation 14.6 % (11.7-14.2); RDW Standard Deviation 48.8 fL (35.1-46.3)
[2024-11-29] MEDS ORDERED: Cefepime HCl 1,000 MG in NS 100 ML IV SCH (07:00)
[2024-11-29] MEDS ORDERED: CeFAZolin Sodium 2,000 MG in NS 100 ML IV SCH (09:50)
--- NOTE | 2024-11-29 11:23 | NUR ---
PT UPDATED THAT SURGICAL TIME SCHEDULED AROUND 1230 - UPDATED WELL.
[2024-11-29] MEDS ORDERED: GABA100 PO (11:58)
[2024-11-29] MEDS ORDERED: TORSE20 PO (11:59)
[2024-11-29] MEDS ORDERED: OZEMPIC1 MG/0.72 UD (11:59)
[2024-11-29] MEDS ORDERED: TAMS.4ER PO (11:59)
[2024-11-29 12:14] LABS: Alanine Aminotransfer (ALT/SGP 32.0 U/L (12-78); Albumin, Blood 2.4 g/dL (3.4-5.0); Albumin/Globulin Ratio 0.6 (0.8-1.8); Anion Gap 16.0 mmol/L (3-11); Aspartate Aminotrans (AST/SGOT 26.0 U/L (12-37); Bilirubin, Total 0.6 mg/dL (0.1-1.0); Blood Urea Nitrogen 40.0 mg/dL (8-24); CO2, Blood 23.0 mmol/L (21-32); Calcium, Blood 8.3 mg/dL (8.5-10.1); Chloride, Blood 106.0 mmol/L (98-108); Creatinine, Blood 2.02 mg/dL (0.60-1.20); Globulin, Blood 3.8 g/dL (2.2-4.0); Glucose, Blood 159.0 mg/dL (70-99); Magnesium, Blood 1.8 mg/dL (1.6-2.4); Potassium, Blood 4.1 mmol/L (3.5-5.5); Sodium, Blood 141.0 mmol/L (136-145); Total Protein, Blood 6.2 g/dL (6.4-8.2)
--- NOTE | 2024-11-29 15:46 | NUR ---
ASSUMPTION ASSUMED CARE OF PT @0700. AXO4. VSS. MED LIST UPDATED WITH . PT NPO PRE OP EXCEPT FOR NECESSARY MEDS. R INDEX FINGER, BLAACK, HARD, DULLED SENSATION. R MIDDLE FINGER WITH ULCERATION WELL BUT W/O ESCHAR OR DULLING OF SENSATION. PREOP INTERVENTIONS COMPLETED ON NOC PER REPORT. AWAITING PT TO COME OUT OF SURGERY CURRENTLY @2097. SPOUSE IN ROOM WAITING.
--- NOTE | 2024-11-29 16:42 | NUR ---
STILL AWAITING ARRIVAL TO UNIT. IT APPEARS PT SURGERY NOW SCHEDULED FOR 1700. PT'S SPOUSE UPDATED.
[2024-11-29] MEDS ORDERED: Midazolam HCl 1MG / ML 2ML Vial ONE (16:56)
[2024-11-29] MEDS ORDERED: FentaNYL Citrate 50 MCG/ML 2 ML Injection ONE (16:56)
[2024-11-29] MEDS ORDERED: Dexamethasone Sod Phos 10 MG/ML 1ML VIAL ONE ×2 (16:58→17:13)
[2024-11-29] MEDS ORDERED: Ondansetron HCl 2 MG / ML 2ML Vial ONE (16:58)
[2024-11-29] MEDS ORDERED: Bupivacaine 0.5% HCl 5 MG/ML 30MLVIAL INJ ONE ×2 (17:13)
[2024-11-29] MEDS ORDERED: HydrALAZINE HCl 20 MG / ML 1ML Vial IV PRN (17:45)
[2024-11-29] MEDS ORDERED: Ondansetron HCl 2 MG / ML 2ML Vial IV PRN (17:45)
[2024-11-29] MEDS ORDERED: FentaNYL Citrate 50 MCG/ML 2 ML Injection IV PRN ×2 (17:45)
--- NOTE | 2024-11-29 18:15 | NUR ---
PT TO ROOM @181. AXO4. EATING DINNER NOW- TOLERATING INTAKE WELL. AMBULATED TO BED FROM STRETCHER. DRESSING TO R HAND CDI. FIRST SET OF VSS STABLE. SPOUSE IN ROOM HELPING PT EAT.
[2024-11-29 21:00] LABS: Vancomycin, Random 16.1 ug/mL
[2024-11-29] MEDS ORDERED: NS 250 ML IV PRN (21:50)
[2024-11-30 03:45] VITALS: BP 161/84
[2024-11-30 05:33] LABS: BASOPHILS ABSOLUTE AUTO 0.01 K/mm3 (0.00-0.23); BASOPHILS PERCENT AUTO 0 % (0-2); EOSINOPHILS ABSOLUTE AUTO 0.00 K/mm3 (0.00-0.68); EOSINOPHILS PERCENT AUTO 0 % (0-6); Hematocrit 30.7 % (37.0-53.0); Hemoglobin 9.8 g/dL (13.5-17.5); IMMATURE GRAN ABSOLUTE AUTO 0.07 K/mm3 (0.00-0.10); IMMATURE GRAN PERCENT AUTO 1 % (0-1); LYMPHOCYTES ABSOLUTE AUTO 0.56 K/mm3 (0.84-5.20); LYMPHOCYTES PERCENT AUTO 6 % (21-46); MONOCYTES ABSOLUTE AUTO 0.40 K/mm3 (0.16-1.47); MONOCYTES PERCENT AUTO 4 % (4-13); Mean Corpuscular HGB Conc 31.9 g/dL (31.5-36.5); Mean Corpuscular Volume 91 fL (80-100); NEUTROPHILS ABSOLUTE AUTO 8.47 K/mm3 (1.96-9.15); NEUTROPHILS PERCENT AUTO 89 % (41-73); NRBC ABSOLUTE 0.00 K/mm3 (0.00-0.02); NRBC Auto 0.0 /100 WBC (0.0-0.2); Platelet Count 173 K/mm3 (150-400); RDW Coefficient Variation 14.5 % (11.7-14.2); RDW Standard Deviation 48.5 fL (35.1-46.3)
--- NOTE | 2024-11-30 05:51 | NUR ---
PT ALERT AND ORIENTED. PLEASANT AND COOPERATIVE WITH CARE. BULKY DRST TO RIGHT HAND WITH COBAN POST INDEX FIGER AMPUTATION, NO DRAINAGE NOTED. PT WITH DISCOLORED BROWN BLE WITH EDEMA. MEDICATED PT PER EMAR. PT DENIED ANY PAIN T/O NOC. WEARS CPAP AT [facility]. SLEEPING WELL THEN WOKE UP CONFUSED, GOT UP WITHOUT OUR KNOWLEDGE WENT TO THE BR TO VOID THEN CAME OUT INTO THE BARBOZA WHERE I SAW HIM. SAT IN CHAIR IN BARBOZA BY THE TIME I GOT THER. PT IN ISOLATION. REORIENTED PT AND HE REMEMBERED EVERYTHING I REMINDED HIM OF. BACK TO BED. WILL GIVE REPORT TO ONCOMING RN TAKING PT.
[2024-11-30 06:06] LABS: Alanine Aminotransfer (ALT/SGP 25.0 U/L (12-78); Albumin, Blood 2.3 g/dL (3.4-5.0); Albumin/Globulin Ratio 0.6 (0.8-1.8); Anion Gap 11.0 mmol/L (3-11); Aspartate Aminotrans (AST/SGOT 16.0 U/L (12-37); Bilirubin, Total 0.5 mg/dL (0.1-1.0); Blood Urea Nitrogen 36.0 mg/dL (8-24); CO2, Blood 22.0 mmol/L (21-32); Calcium, Blood 8.2 mg/dL (8.5-10.1); Chloride, Blood 108.0 mmol/L (98-108); Creatinine, Blood 1.87 mg/dL (0.60-1.20); Globulin, Blood 4.1 g/dL (2.2-4.0); Glucose, Blood 268.0 mg/dL (70-99); Potassium, Blood 4.1 mmol/L (3.5-5.5); Sodium, Blood 137.0 mmol/L (136-145); Total Protein, Blood 6.4 g/dL (6.4-8.2)
[2024-11-30] MEDS ORDERED: Insulin Regular 100 UNIT/ML 10ML Vial SC SCH (07:30)
[2024-11-30 07:44] VITALS: BP 164/83
[2024-11-30 14:27] VITALS: BP 144/75
--- NOTE | 2024-11-30 16:48 | NUR ---
SHIFT SUMMARY IV ABX GIVEN ORDERED. UP IN ROOM SOME TODAY. EATING, DRINKING, & VOIDING. DENIES PAIN. R HAND ELEVATED ON PILLOWS.
[2024-11-30 20:41] VITALS: BP 150/73
[2024-12-01 03:49] VITALS: BP 141/75
[2024-12-01 06:12] LABS: BASOPHILS ABSOLUTE AUTO 0.03 K/mm3 (0.00-0.23); BASOPHILS PERCENT AUTO 0 % (0-2); EOSINOPHILS ABSOLUTE AUTO 0.05 K/mm3 (0.00-0.68); EOSINOPHILS PERCENT AUTO 0 % (0-6); Hematocrit 30.5 % (37.0-53.0); Hemoglobin 10.2 g/dL (13.5-17.5); IMMATURE GRAN ABSOLUTE AUTO 0.08 K/mm3 (0.00-0.10); IMMATURE GRAN PERCENT AUTO 1 % (0-1); LYMPHOCYTES ABSOLUTE AUTO 1.23 K/mm3 (0.84-5.20); LYMPHOCYTES PERCENT AUTO 8 % (21-46); MONOCYTES ABSOLUTE AUTO 0.87 K/mm3 (0.16-1.47); MONOCYTES PERCENT AUTO 6 % (4-13); Mean Corpuscular HGB Conc 33.4 g/dL (31.5-36.5); Mean Corpuscular Volume 88 fL (80-100); NEUTROPHILS ABSOLUTE AUTO 12.96 K/mm3 (1.96-9.15); NEUTROPHILS PERCENT AUTO 85 % (41-73); NRBC ABSOLUTE 0.00 K/mm3 (0.00-0.02); NRBC Auto 0.0 /100 WBC (0.0-0.2); Platelet Count 231 K/mm3 (150-400); RDW Coefficient Variation 14.3 % (11.7-14.2); RDW Standard Deviation 46.0 fL (35.1-46.3)
[2024-12-01 06:37] LABS: Anion Gap 11.0 mmol/L (3-11); Blood Urea Nitrogen 34.0 mg/dL (8-24); CO2, Blood 21.0 mmol/L (21-32); Calcium, Blood 8.2 mg/dL (8.5-10.1); Chloride, Blood 109.0 mmol/L (98-108); Creatinine, Blood 1.03 mg/dL (0.60-1.20); Glucose, Blood 168.0 mg/dL (70-99); Potassium, Blood 4.0 mmol/L (3.5-5.5); Sodium, Blood 137.0 mmol/L (136-145)
[2024-12-01 07:50] VITALS: BP 163/78
[2024-12-01] MEDS ORDERED: Cefepime HCl 1,000 MG in NS 100 ML IV SCH (08:00)
[2024-12-01] MEDS ORDERED: Cefepime HCl 2,000 MG in NS 100 ML IV SCH (08:39)
[2024-12-01 13:07] LABS: MYELOPEROXIDASE (MPO) AB,IGG 0 AU/mL (0-19); SERINE PROTEINASE 3 PR3 AB,IGG 0 AU/mL (0-19)
[2024-12-01] MEDS ORDERED: AMLO5 PO (13:45)
[2024-12-01] MEDS ORDERED: Amoxicillin500 MG PO (13:46)
[2024-12-01] MEDS ORDERED: TRAM50 PO (13:46)
[2024-12-01] MEDS ORDERED: DOXY100 PO (13:46)
--- NOTE | 2024-12-01 14:29 | NUR ---
DISCHARGE POD 2 R INDEX FINGER AMPUTATION. DRESSING CHANGED PRIOR TO DISCHARGE. INCISION CDI. NO REDNESS OR DRAINAGE NOTED. ALL INSTRUCTIONS GONE OVER WITH PATIENT AND SPOUSE. ESCORTED OUT VIA WHEELCHAIR. PT CONTINUES TO DENY PAIN DURING SHIFT. PLANS TO FOLLOW UP WITH PCP AND DR. RIVAS AFTER DISCHARGE.
== END 2024-12-01 14:24 | disposition home or self-care (01) | DRG 300 ==
LOC: ER 14:59 → ERHOLD 18:05 → SURS 18:05
PROVIDERS: Internal Medicine; Student in an Organized Health Care Education/Training Program; ADMIT Student in an Organized Health Care Education/Training Program
DX: E11.52 Type 2 diabetes mellitus with diabetic peripheral angiopathy with gangrene (principal); I13.0 Hypertensive heart and chronic kidney disease with heart failure and stage 1 through stage 4 chronic kidney disease, or unspecified chronic kidney disease; I50.32 Chronic diastolic (congestive) heart failure; L03.113 Cellulitis of right upper limb; I48.92 Unspecified atrial flutter; M31.30 Wegener's granulomatosis without renal involvement; E11.22 Type 2 diabetes mellitus with diabetic chronic kidney disease; E78.5 Hyperlipidemia, unspecified; G47.33 Obstructive sleep apnea (adult) (pediatric); Z86.718 Personal history of other venous thrombosis and embolism; M10.9 Gout, unspecified; K21.9 Gastro-esophageal reflux disease without esophagitis; I25.10 Atherosclerotic heart disease of native coronary artery without angina pectoris; E03.9 Hypothyroidism, unspecified; E11.42 Type 2 diabetes mellitus with diabetic polyneuropathy; F32.9 Major depressive disorder, single episode, unspecified; N18.32 Chronic kidney disease, stage 3b; I48.0 Paroxysmal atrial fibrillation; Z79.4 Long term (current) use of insulin; Z79.01 Long term (current) use of anticoagulants; Z79.890 Hormone replacement therapy; Z79.899 Other long term (current) drug therapy; Z79.891 Long term (current) use of opiate analgesic; Z79.2 Long term (current) use of antibiotics; Z90.89 Acquired absence of other organs; Z98.890 Other specified postprocedural states; Z99.89 Dependence on other enabling machines and devices; Z95.0 Presence of cardiac pacemaker; Z86.19 Personal history of other infectious and parasitic diseases
CPT/HCPCS: 36415; 73130; 80048; 80053; 80202; 82947; 83516; 83605; 83735; 85025; 85651; 86140; 87040; 87077; 93931; 94660; 94762; 99285-25; A9270; J0692; J1100; J1815; J2250; J2405; J2704; J3010; J3373; J7040; J7050; J7120

== ENCOUNTER 2024-12-05 01:09 | Day surgery (SDC) | payer MEDICARE, OTHER ==
[~2024-12-05 01:09] MED LIST changes: +AMLO5 PO; +Amoxicillin500 MG PO; +GABA100 PO; +OZEMPIC1 MG/0.72 UD; +TAMS.4ER PO; +TORSE20 PO
== END 2024-12-05 23:00 | disposition home or self-care (01) ==
LOC: WOUND 01:09
DX: S91.205A Unspecified open wound of left lesser toe(s) with damage to nail, initial encounter (principal); E11.622 Type 2 diabetes mellitus with other skin ulcer; L98.492 Non-pressure chronic ulcer of skin of other sites with fat layer exposed; E11.65 Type 2 diabetes mellitus with hyperglycemia; E11.51 Type 2 diabetes mellitus with diabetic peripheral angiopathy without gangrene; I13.0 Hypertensive heart and chronic kidney disease with heart failure and stage 1 through stage 4 chronic kidney disease, or unspecified chronic kidney disease; E11.22 Type 2 diabetes mellitus with diabetic chronic kidney disease; N18.9 Chronic kidney disease, unspecified; I50.9 Heart failure, unspecified; E03.9 Hypothyroidism, unspecified; G47.33 Obstructive sleep apnea (adult) (pediatric); Z86.718 Personal history of other venous thrombosis and embolism; X58.XXXA Exposure to other specified factors, initial encounter; E11.621 Type 2 diabetes mellitus with foot ulcer; L25.9 Unspecified contact dermatitis, unspecified cause; M19.072 Primary osteoarthritis, left ankle and foot
CPT/HCPCS: 73630; G0463

== ENCOUNTER 2024-12-14 03:43 | Day surgery (SDC) | payer MEDICARE, OTHER ==
[2024-12-14] MEDS ORDERED: Lidocaine HCl 4% Cream 5 GM ONE (12:57)
== END 2024-12-14 23:00 | disposition home or self-care (01) ==
LOC: WOUND 03:43
DX: L97.522 Non-pressure chronic ulcer of other part of left foot with fat layer exposed (principal); L98.492 Non-pressure chronic ulcer of skin of other sites with fat layer exposed; E11.65 Type 2 diabetes mellitus with hyperglycemia; E11.51 Type 2 diabetes mellitus with diabetic peripheral angiopathy without gangrene; E11.40 Type 2 diabetes mellitus with diabetic neuropathy, unspecified
CPT/HCPCS: A9270; G0463